=== PATIENT | female | born 1980 | race Caucasian/White ===

== ENCOUNTER 2020-02-24 08:23 | Outpatient (REF) | payer OTHER, SELFPAY ==
[2020-02-25 09:08] LABS: CT PCR NOT DETECTED (Not Detect.); NG PCR NOT DETECTED (Not Detect.)
[2020-02-25 10:31] LABS: BV Int Neg Control Negative (Negative); BV Int Pos Control Positive (Positive)
[2020-02-28 21:02] LABS: HPV 16 RNA NOT DETECTED (NOT DETECTED); HPV mRNA E6/E7 rflx Detected (Not Detected)
== END 2020-02-24 08:24 | disposition home or self-care (01) ==
LOC: HO.LAB 08:23
PROVIDERS: PCP Internal Medicine; Referring Provider Internal Medicine; Visit Provider Obstetrics & Gynecology
DX: Z01.419 Encounter for gynecological examination (general) (routine) without abnormal findings (principal); R10.2 Pelvic and perineal pain; R31.29 Other microscopic hematuria
CPT/HCPCS: 81025; 87086; 87480; 87491; 87510; 87591; 87624; 87625; 87660; 88141; 88142

== ENCOUNTER 2020-03-02 08:23 | Outpatient (REF) | payer OTHER, SELFPAY ==
--- NOTE | 2020-03-02 08:28 | US_ITS ---
EXAMINATION: US PELVIC, COMPLETE CLINICAL INFORMATION: Pelvic and perineal pain COMPARISON: None. TECHNIQUE: Transabdominal and transvaginal imaging was performed. FINDINGS: The uterus is retroflexed of normal size and echogenicity measuring 8.8 x 4.1 x 4.8 cm. A regular homogeneous endometrium is identified measuring 0.41 cm. An intrauterine device is seen in appropriate positioning. Both ovaries are of normal size and echogenicity. The right measures 4.1 x 2.2 x 2.5 cm for a volume of 11.6 mL. The left measures 3.6 x 1.2 x 1.9 cm for a volume of 4.2 mL. There are 2 focal regions within the right ovary, the first measures 2.3 x 1.9 x 1.9 cm and is heterogeneously hypoechoic with peripheral vascularity and slightly lobulated margins suggestive of a corpus luteal cyst. The second measures 1.7 x 1.8 x 1.7 cm with both cystic and solid portion, indeterminate. There is small pelvic free fluid. US/US pelvic complete IMPRESSION: 1. Appropriate positioning of the patient's intrauterine device. 2. There are 2 complex cystic lesions of the right ovary. In this patient's age group, these are likely benign, however ultrasound is nondiagnostic. Recommend follow-up in 6 weeks.
--- NOTE | 2020-03-02 08:28 | US_ITS ---
EXAMINATION: US PELVIC, COMPLETE CLINICAL INFORMATION: Pelvic and perineal pain COMPARISON: None. TECHNIQUE: Transabdominal and transvaginal imaging was performed. FINDINGS: The uterus is retroflexed of normal size and echogenicity measuring 8.8 x 4.1 x 4.8 cm. A regular homogeneous endometrium is identified measuring 0.41 cm. An intrauterine device is seen in appropriate positioning. Both ovaries are of normal size and echogenicity. The right measures 4.1 x 2.2 x 2.5 cm for a volume of 11.6 mL. The left measures 3.6 x 1.2 x 1.9 cm for a volume of 4.2 mL. There are 2 focal regions within the right ovary, the first measures 2.3 x 1.9 x 1.9 cm and is heterogeneously hypoechoic with peripheral vascularity and slightly lobulated margins suggestive of a corpus luteal cyst. The second measures 1.7 x 1.8 x 1.7 cm with both cystic and solid portion, indeterminate. There is small pelvic free fluid. US/US transvaginal IMPRESSION: 1. Appropriate positioning of the patient's intrauterine device. 2. There are 2 complex cystic lesions of the right ovary. In this patient's age group, these are likely benign, however ultrasound is nondiagnostic. Recommend follow-up in 6 weeks.
== END 2020-03-02 08:24 | disposition home or self-care (01) ==
LOC: HO.HMGCX 08:23
PROVIDERS: Visit Provider Obstetrics & Gynecology
DX: R10.2 Pelvic and perineal pain (principal)
CPT/HCPCS: 76830; 76856

== ENCOUNTER → 2020-03-16 14:14 | Outpatient (BNVA) | payer OTHER, SELFPAY | PROVIDERS: Visit Provider Obstetrics & Gynecology | DX: Z76.89 Persons encountering health services in other specified circumstances (principal) ==

== ENCOUNTER 2020-03-30 10:10 | Outpatient (REF) | payer OTHER, SELFPAY | END 2020-03-30 10:11 | disposition home or self-care (01) | LOC: HO.LAB 10:10 | PROVIDERS: Visit Provider Obstetrics & Gynecology | DX: R87.612 Low grade squamous intraepithelial lesion on cytologic smear of cervix (LGSIL) (principal) | CPT/HCPCS: 57454; 81025; 88305; 88342; 88360 ==

== ENCOUNTER → 2020-04-10 14:01 | Outpatient (BNVA) | payer OTHER, SELFPAY | PROVIDERS: Visit Provider Obstetrics & Gynecology | DX: Z76.89 Persons encountering health services in other specified circumstances (principal) ==

== ENCOUNTER → 2020-04-13 10:11 | Outpatient (BNVA) | payer OTHER, SELFPAY | PROVIDERS: Visit Provider Obstetrics & Gynecology | DX: Z76.89 Persons encountering health services in other specified circumstances (principal) ==

== ENCOUNTER 2020-04-14 08:36 | Outpatient (REF) | payer OTHER, SELFPAY ==
[2020-04-15 08:00] LABS: BV Int Neg Control Negative (Negative); BV Int Pos Control Positive (Positive)
== END 2020-04-14 08:37 | disposition home or self-care (01) ==
LOC: HO.LAB 08:36
PROVIDERS: Visit Provider Advanced Practice Midwife
DX: R10.2 Pelvic and perineal pain (principal); R31.29 Other microscopic hematuria; Z79.3 Long term (current) use of hormonal contraceptives
CPT/HCPCS: 81003; 87086; 87480; 87510; 87660; 99212

== ENCOUNTER → 2020-04-16 08:01 | Outpatient (BNVA) | payer OTHER, SELFPAY | PROVIDERS: PCP Internal Medicine; Visit Provider Obstetrics & Gynecology | DX: R10.2 Pelvic and perineal pain (principal) | CPT/HCPCS: 81025; 99212 ==

== ENCOUNTER 2020-04-16 08:53 | Outpatient (REF) | payer OTHER, SELFPAY ==
--- NOTE | 2020-04-16 09:01 | US_ITS ---
EXAMINATION: US PELVIS COMPLETE CLINICAL INFORMATION: Pelvic and perineal pain COMPARISON: None TECHNIQUE: Transabdominal and transvaginal ultrasound of the pelvis is performed. FINDINGS: The uterus is retroverted and retroflexed. It measures 6.9 cm in length, 3.9 cm in AP and 7.3 cm in transverse dimension. There is an IUD well located within the endometrial canal. The endometrial thickness is 0.2 cm. The right ovary measures 3.1 x 1.9 x 1.8 cm and volume 5.5 mL. Previously it it measured 4.1 x 2.2 x 2.5 cm and volume 11.6 mL. The ovaries are unremarkable. The left ovary measures 2.8 x 2.4 x 1.9 cm and volume 6.7 mL. Previously left ovary measured 3.6 x 1.2 x 1.9 cm and volume 4.2 cm. It appears unremarkable. There is no free fluid in the cul-de-sac. US/US pelvic complete IMPRESSION: 1. Well located IUD within the endometrial canal. The uterus is retroverted and retroflexed but otherwise unremarkable. 2. Ovaries are unremarkable.
--- NOTE | 2020-04-16 09:01 | US_ITS ---
EXAMINATION: US PELVIS COMPLETE CLINICAL INFORMATION: Pelvic and perineal pain COMPARISON: None TECHNIQUE: Transabdominal and transvaginal ultrasound of the pelvis is performed. FINDINGS: The uterus is retroverted and retroflexed. It measures 6.9 cm in length, 3.9 cm in AP and 7.3 cm in transverse dimension. There is an IUD well located within the endometrial canal. The endometrial thickness is 0.2 cm. The right ovary measures 3.1 x 1.9 x 1.8 cm and volume 5.5 mL. Previously it it measured 4.1 x 2.2 x 2.5 cm and volume 11.6 mL. The ovaries are unremarkable. The left ovary measures 2.8 x 2.4 x 1.9 cm and volume 6.7 mL. Previously left ovary measured 3.6 x 1.2 x 1.9 cm and volume 4.2 cm. It appears unremarkable. There is no free fluid in the cul-de-sac. US/US transvaginal IMPRESSION: 1. Well located IUD within the endometrial canal. The uterus is retroverted and retroflexed but otherwise unremarkable. 2. Ovaries are unremarkable.
== END 2020-04-16 08:54 | disposition home or self-care (01) ==
LOC: HO.US 08:53
PROVIDERS: Visit Provider Obstetrics & Gynecology
DX: R10.2 Pelvic and perineal pain (principal)
CPT/HCPCS: 76830; 76856

== ENCOUNTER → 2020-04-27 13:56 | Outpatient (BNVA) | payer OTHER, SELFPAY | PROVIDERS: PCP Internal Medicine; Visit Provider Obstetrics & Gynecology | DX: Z01.818 Encounter for other preprocedural examination (principal); D06.9 Carcinoma in situ of cervix, unspecified; Z97.5 Presence of (intrauterine) contraceptive device | CPT/HCPCS: 99212 ==

== ENCOUNTER 2020-05-01 07:32 | Outpatient (REF) | payer OTHER, SELFPAY ==
[2020-05-01 07:38] VITALS: BP 129/78; PULSE 88; RESP 19; TEMP 36.5; O2SAT 100; BMI 27.1
--- NOTE | 2020-05-01 08:05 | MHC.SHP ---
Pre-Procedural Eval Section A The patient is an INPATIENT: No Changes since office visit: No Cold of Flu in the past 2 weeks, No New Medical Problems, No Changes in Medication and No Patient answered all questions The History & Physical has been completed within 30 days and I have reviewed it.: Yes Section B Chief Complaint: cin3 Allergies: Allergies Allergy/AdvReac Type Severity Reaction Status Date / Time No Known Allergies Allergy Verified 05/01/20 07:48 Plan Diagnosis/Plan: Unchanged I have reviewed the history and physical and performed a pertinent physical examination on my patient. No changes have occurred unless specified.
--- NOTE | 2020-05-01 08:42 | PM.OP ---
Brief Operative Note Date of Service: 04/03/20 Pre-op diagnosis: JUAN LUIS 2-3 , requesting IUD removal Post-op diagnosis: same Procedure: LEEP CONE, IUD removal Surgeon: Pierce Rossi MD Anesthesia: local and other (Paracervical block) Estimated blood loss (mL): 0 Pathology: other (cervical cone) Condition: stable Disposition: other (Home)
--- NOTE | 2020-05-01 08:43 | W.PM.OPN ---
Operative Note Operative Note Date of Service: 04/03/20 Narrative: Preop diagnosis: JUAN LUIS 2-3 negative ECC, requesting IUD removal Operation: LEEP Cone with post cone ECC Post op diagnosis: same Anesthesia: paracervical block Complications: none Pathology: Cervical CONE QBL: minimal Procedure: The patient was put in the dorsal lithotomy position, was prepped and draped in the usual sterile fashion. A sterile speculum was inserted inside the patient vagina. Using Lugol solution the cervix with Dyed with Lugol solution to identifiy the abnormal demarcating line. 10 cc of Marcaine0.5% with epinephrine were given at 2,4 , 8, and 10 o'clock. Using a Tanisha Clamp the IUD was pulled out with no complicationsand Then using a medium-size loop wire, the cervical cone was excised. Hemostasis was assured using cautery and Monsel solution. All instruments were taken out of the patient's vaginal cavity. the patient tolerated the procedure well and was discharged home with the following instructions: call if temperature is above 100.4, vaginal bleeding, abdominal pain or nausea or vomiting. Follow-up in the office in 2 weeks for postop visit
== END 2020-05-01 07:33 | disposition home or self-care (01) ==
LOC: HO.MS 07:32
PROVIDERS: Visit Provider Obstetrics & Gynecology
PROC: 0UBC7ZZ Excision of Cervix, Via Natural or Artificial Opening (ICD-10-PCS; CPT 57522; principal; 2020-05-01 08:20)
DX: D06.9 Carcinoma in situ of cervix, unspecified (principal); Z30.432 Encounter for removal of intrauterine contraceptive device; F32.9 Major depressive disorder, single episode, unspecified
CPT/HCPCS: 57522; 58301; 88307

== ENCOUNTER → 2020-05-04 16:03 | Outpatient (BNVA) | payer OTHER, SELFPAY | PROVIDERS: Visit Provider Obstetrics & Gynecology | DX: N83.299 Other ovarian cyst, unspecified side (principal) | CPT/HCPCS: 99212 ==

== ENCOUNTER 2020-05-12 15:37 | Outpatient (REF) | payer OTHER, SELFPAY ==
[2020-05-12 18:01] LABS: MANUAL DIFF FLAG NO
[2020-05-12 18:17] LABS: Basophils Percent Auto 0.3 % (0-2); Eosinophils Percent Auto 0.5 % (0-4); Hemoglobin 13.5 g/dl (12.0-16.0); Imm Gran Abs Auto 0.05 X10*3/uL (0.00-0.03); Imm Gran Pct Auto 0.6 % (0.0-0.4); Lymphocytes Percent Auto 25.5 % (20-40); Mean Corpuscular HGB Conc 35.5 g/dl (31.0-35.0); Mean Corpuscular Volume 87.2 fL (80-98); Mean Platelet Volume 9.8 fL (9.4-12.3); Monocytes Absolute Auto 0.3 X10*3/uL (0.1-1.2); Monocytes Percent Auto 4.3 % (2-11); Neutrophils Absolute Auto 5.4 X10*3/uL (2.0-8.3); Neutrophils Percent Auto 68.8 % (45-73); Platelet Count 323 X10*3/uL (160-400); Red Blood Count 4.36 X10*6/uL (4.20-5.50); Red Cell Distribution Width 11.2 % (11.0-16.0); White Blood Count 7.8 X10*3/uL (4.8-10.8)
[2020-05-12 18:27] LABS: Alanine Aminotransferase 15 U/L (0-31); Albumin Level 4.9 g/dL (3.5-5.0); Alkaline Phosphatase 60 U/L (39-117); Anion Gap 13 (12-20); Aspartate Amino Transferase 20 U/L (5-31); Bilirubin Total 0.4 mg/dL (0.0-1.0); Blood Urea Nitrogen 14 mg/dL (9-16); Calcium 9.5 mg/dL (8.4-10.2); Carbon Dioxide 30 mmol/L (22-29); Chloride 101 mmol/L (96-108); Estimated Glomerular Filt Rate > 60; Glucose Random 87 mg/dL (60-115); Sodium 140 mmol/L (135-145); Total Protein 7.9 g/dL (6.5-8.0)
[2020-05-12 18:33] LABS: HCG Quantitative < 2 mIU/mL
[2020-05-13 18:37] LABS: CA-125 8 U/mL (<35)
== END 2020-05-12 15:38 | disposition home or self-care (01) ==
LOC: HO.LAB 15:37
PROVIDERS: PCP Internal Medicine; Visit Provider Obstetrics & Gynecology
DX: N83.299 Other ovarian cyst, unspecified side (principal); R10.2 Pelvic and perineal pain; N92.0 Excessive and frequent menstruation with regular cycle
CPT/HCPCS: 36415; 80053; 84702; 85025; 86304

== ENCOUNTER → 2020-05-13 09:39 | Outpatient (BNVA) | payer OTHER, SELFPAY | PROVIDERS: PCP Internal Medicine; Visit Provider Obstetrics & Gynecology | DX: N93.9 Abnormal uterine and vaginal bleeding, unspecified (principal) | CPT/HCPCS: 99212 ==

== ENCOUNTER 2020-05-15 23:25 | Emergency (ER) | payer OTHER, SELFPAY ==
[2020-05-15 23:34] VITALS: BP 120/83; PULSE 120; RESP 12; TEMP 37.1; O2SAT 100; BMI 26.9
--- NOTE | 2020-05-15 23:43 | ED_ITS ---
HPI - General Adult General Chief complaint: Vaginal Bleeding Stated complaint: Vaginal Bleeding Time Seen by Provider: 05/15/20 23:34 Source: patient Mode of arrival: ambulatory Limitations: no limitations History of Present Illness HPI narrative: Vaginal bleed for few weeks intermittently, patient had LEEP procedure done few weeks ago, sent to the in-patient been having intermittent bleeding, patient was evaluated by Dr. Flo Nuno at the office for similar presentation, patient was treated with Augmentin for presumed cervical infection. Patient stated that in the last hour she changed 3 soaked pads, feeling slightly dizzy but no lightheadedness, no LOC. Patient declined sexual activity. Related Data Home Medications Medication Instructions Recorded Confirmed levonorgestrel 20 mcg/24 hours (6 INTRAUTERINE 02/24/20 05/12/20 yrs) 52 mg intrauterine device Previous Rx's Medication Instructions Recorded levofloxacin 500 mg tablet 500 mg PO DAILY 7 Days #7 tab 04/10/20 metronidazole 500 mg tablet 500 mg PO BID 7 Days #14 tab 04/10/20 amoxicillin 875 mg-potassium 1 tab PO BID 7 Days #14 tab 05/13/20 clavulanate 125 mg tablet norgestimate-ethinyl estradiol 1 tab PO DAILY #28 tab 05/16/20 [Sprintec (28)] Allergies Allergy/AdvReac Type Severity Reaction Status Date / Time No Known Allergies Allergy Verified 05/12/20 15:38 Review of Systems Review of Systems: All other systems are reviewed and are negative Constitutional: Reports as per HPI and Reports no additional constitutional complaints Eyes: Reports as per HPI and Reports no additional eye complaints Reports system reviewed and no additional complaints, except as documented Cardiovascular: Reports as per HPI and Reports no additional cardiovascular complaints Respiratory: Reports as per HPI and Reports no additional respiratory complaints Gastrointestinal: Reports as per HPI and Reports no additional gastrointestinal complaints Genitourinary: Reports no additional female genitourinary complaints Musculoskeletal: Reports no additional musculoskeletal complaints Skin/Breast: Reports system reviewed and no additional complaints, except as docu Psychiatric: Reports no additional psychiatric complaints Endocrine: Reports no additional endocrine complaints Hematologic/Lymphatic: Reports no additional hematologic/lymphatic complaints Allergic/Immunologic: Reports no additional allergic/immunologic complaints Reports system reviewed and no additional complaints, except as documented and Reports Abnormal speech present PMFSH Past Medical History Medical History Anxiety Depression History of abnormal cervical Pap smear Family History Family History Father Bladder cancer Mother Breast cancer Uterine cancer Diabetes HTN (hypertension) Maternal Grandmother Breast cancer Paternal Uncle Bone cancer Social History Social History Alcohol intake: never Smoking Status: Never smoker Smoked in Last 30 Days: No Advance Directives: No Advance Directives Information Provided: No Sexual orientation: Straight/Heterosexual Gender identity: female Physical Exam Vital Signs: Vital Signs: Last Vital Signs Temp 98.7 F 05/15/20 23:34 Pulse 120 H 05/15/20 23:34 Resp 12 05/15/20 23:34 BP 120/83 05/15/20 23:34 Pulse Ox 100 05/15/20 23:34 Body Mass Index 26.9 Vital signs have been reviewed as normal and appeared to be correct. Blood pressure normal. Heart rate: Tachycardia. Respiration rate normal. Temperature normal. Oxygen saturation normal. Appearance: Alert. Oriented X3. No acute distress. Head: Normal external exam. Normocephalic. Atraumatic. No Irwin signs noted. No raccoon eyes noted Eyes: PERRLA. EOMI. Conjunctiva and sclera normal. Eyelids normal. ENT: EAC normal. TM's Normal. Pharynx normal. Uvula midline. Moist mucous membranes. No trismus noted. No drooling noted. No muffled voice noted. Neck: Normal inspection. Neck supple. FROM. No adenopathy. Thyroid Normal. No meningeal signs. No neck mass noted. CVS: Normal heart rate and rhythm. Heart sound normal. No murmurs noted. Pulses normal throughout. Respiratory: No respiratory distress. Painless inspiration. Breath sounds normal. No wheezes/rales/rhonchi noted. Chest nontender. No accessory muscle usage noted or decreased air movement noted. Abdomen: Soft and nontender. Bowel sounds normal in all 4 quadrants. No distention noted. No organomegaly noted. No visible injury noted. Pelvic exam: Active bleeding from the cervix (unable to visualize the source of the bleed) vault is full of blood and blood clots, gauze packing used Tranexamic acid applied intravaginally slowing the bleed. Overall exam is limited due to the amount of the blood in the vault. Back: No CVA tenderness. Full range of motion noted. Skin: Skin warm and dry. Normal skin color. Normal skin turgor. No rashes/lesi ons/lacerations noted. Extremities: No lower extremity edema. Extremities exhibit normal range of motion. Extremities nontender. Neuro: Oriented X 3. No motor deficit. No sensory deficit. Reflexes normal. Course Course Course Narrative: Active vaginal bleeding with tachycardia, patient also dropped 4 unit of hematocrit from 3 days ago. Bleeding is slowing but still actively bleeding after applying intravaginal packing with tranexamic acid. Dr. Flo Justice (OBGYN service) was contacted who came to the hospital within 15 minutes examining the patient, Dr. Rossi is applying Monsel solution to the cervix. Two large IVs in the ACs were applied, type and screen was ordered. Medical Decision Making MDM Narrative Medical decision making narrative: Dr. Rossi at the bedside, after cleaning the cervix from blood and blood clots patient had several pelvic exam by Dr. Rossi reportedly bleeding has stopped, recommended to keep the patient in the emergency room for few hours to monitor her hemodynamically, serial CBC. Will start the patient on Sprintec OCP and follow-up with Dr. Flo Nuno as an o utpatient. Patient was signed out to Dr Denton for [facility] on cbc and monitor VS. Lab Data Lab results reviewed: Yes I reviewed the patient's lab results. Result diagrams: 05/16/20 00:01 05/16/20 00:01 Labs: Lab Results 05/16/20 05/16/20 05/16/20 Range/Units 00:01 00:01 00:50 WBC 8.0 (4.8-10.8) X10*3/uL RBC 3.99 L (4.20-5.50) X10*6/uL Hgb 12.1 (12.0-16.0) g/dl Hct 34.6 L (37-47) % MCV 86.7 (80-98) fL MCH 30.3 (27.0-33.0) pg MCHC 35.0 (31.0-35.0) g/dl RDW 11.2 (11.0-16.0) % Plt Count 269 (160-400) X10*3/uL MPV 9.2 L (9.4-12.3) fL Immature Gran % (Auto) 0.3 (0.0-0.4) % Neut % (Auto) 62.2 (45-73) % Lymph % (Auto) 32.6 (20-40) % [place] % (Auto) 4.1 (2-11) % Eos % (Auto) 0.5 (0-4) % Baso % (Auto) 0.3 (0-2) % Lymph # (Auto) 2.6 (1.2-4.9) X10*3/uL [place] # (Auto) 0.3 (0.1-1.2) X10*3/uL Eos # (Auto) 0.0 (0.0-0.4) X10*3/uL Baso # (Auto) 0.0 (0.0-0.2) X10*3/uL Abs Immat Gran (auto) 0.02 (0.00-0.03) X10*3/uL Absolute Neuts (auto) 5.0 (2.0-8.3) X10*3/uL Absolute Nucleated RBC 0.000 (0.0-0.012) X10*3/uL Nucleated RBC % (auto) 0.0 (0.0-0.2) /100WBC Sodium 138 (135-145) mmol/L Potassium 3.6 (3.3-5.1) mmol/l Chloride 103 (96-108) mmol/L Carbon Dioxide 28 (22-29) mmol/L Anion Gap 11 L (12-20) BUN 11 (9-16) mg/dL Creatinine 0.78 (0.5-1.4) mg/dL Estim Creat Clear Calc 91.0 Estimated GFR > 60 Random Glucose 104 (60-115) mg/dL Calcium 8.9 D (8.4-10.2) mg/dL Beta HCG, Quant < 2 mIU/mL Blood Type A Positive Antibody Screen NEGATIVE Discharge Plan Discharge Clinical Impression: Vaginal bleeding, Menometrorrhagia Instructions: Dysfunctional Uterine Bleeding (ED) Prescriptions: New norgestimate-ethinyl estradiol [Sprintec (28)] 0.25-35 mg-mcg tablet 1 tab PO DAILY Qty: 28 RF: 0 No Action Mirena 20 mcg/24 hours (5 yrs) 52 mg intrauterine device intrauterine RF: 0 levofloxacin 500 mg tablet 500 mg PO DAILY 7 Days Qty: 7 RF: 0 metronidazole 500 mg tablet 500 mg PO BID 7 Days Qty: 14 RF: 0 amoxicillin-pot clavulanate [Augmentin] 875-125 mg tablet 1 tab PO BID 7 Days Qty: 14 RF: 0 Referrals: Po,Ben Beckwith MD [Primary Care Provider] - 2 days Pierce Rossi MD [Physician] - 2 days Stand Alone Forms: Work/School Release
[2020-05-16 00:08] LABS: Basophils Percent Auto 0.3 % (0-2); Eosinophils Percent Auto 0.5 % (0-4); Hematocrit 34.6 % (37-47); Hemoglobin 12.1 g/dl (12.0-16.0); Imm Gran Abs Auto 0.02 X10*3/uL (0.00-0.03); Imm Gran Pct Auto 0.3 % (0.0-0.4); Lymphocytes Absolute Auto 2.6 X10*3/uL (1.2-4.9); Lymphocytes Percent Auto 32.6 % (20-40); MANUAL DIFF FLAG NO; Mean Corpuscular Hemoglobin 30.3 pg (27.0-33.0); Mean Corpuscular Volume 86.7 fL (80-98); Mean Platelet Volume 9.2 fL (9.4-12.3); Monocytes Absolute Auto 0.3 X10*3/uL (0.1-1.2); Monocytes Percent Auto 4.1 % (2-11); Neutrophils Percent Auto 62.2 % (45-73); Platelet Count 269 X10*3/uL (160-400); Red Blood Count 3.99 X10*6/uL (4.20-5.50); Red Cell Distribution Width 11.2 % (11.0-16.0)
[2020-05-16 00:37] LABS: Anion Gap 11 (12-20); Blood Urea Nitrogen 11 mg/dL (9-16); Calcium 8.9 mg/dL (8.4-10.2); Carbon Dioxide 28 mmol/L (22-29); Chloride 103 mmol/L (96-108); Estimated Glomerular Filt Rate > 60; Glucose Random 104 mg/dL (60-115); Potassium 3.6 mmol/l (3.3-5.1); Sodium 138 mmol/L (135-145)
[2020-05-16 01:46] LABS: HCG Quantitative < 2 mIU/mL
[2020-05-16] MEDS: Tranexamic Acid 1,000 MG/10 ML VIAL 500 MG INTRANASAL (01:46)
[2020-05-16 01:50] VITALS: BP 104/71; PULSE 109; RESP 18; O2SAT 98
--- NOTE | 2020-05-16 01:58 | PC.NURSE ---
DR. SUTHERLAND AT BEDSIDE WITH THIS RN AND [facility] FOR COPIOUS AMOUNT OF BLOOD CLOTS IN THE VAGINA. REMOVAL AND MONITORING FOR ACTIVE BLEEDING. NO ACTIVE BLEEDING NOTED ONCE CLOTS WERE REMOVED. SKIN IS P,D,W. PATIENT COMPLAINING OF DIZZINESS AND FEELING UNWELL WHEN SITTING UP OR STANDING. PATIENT LAYING FLAT. DR. SUTHERLAND WANTING 1L OF FLUID. PLAN OF CARE IS FOR REDRAW OF BLOOD AT 6AM AND TREAT ACCORDINGLY.
[2020-05-16] MEDS: 0.9 % Sodium Chloride 1,000 ML 999 ML IVCONT (02:05)
--- NOTE | 2020-05-16 02:11 | PM.GYNCN ---
GRAPHIC DESIGN INTERN - CN: HPI Data of Consult Consult date: 05/16/20 Primary Care Provider: Ben Mckeon MD Consult Narrative Narrative: Ese Meade is a 40 year old female presented to the emergency room with heavy vaginal bleeding and passage of blood clots over 4 hours. The patient had LEEP cone 2 weeks ago with IUD removal. Patient had multiple Mirena IUD's for 17 years consecutively. The patient was seen in the office 3 days ago hematocrit was done was 38 pelvic exam showed mild oozing from cervix monsel of solution was applied bleeding stopped and the patient was started on Augmentin 875 mg p.o. b.i.d.. 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 Review of Systems ROS Unobtainable: All systems reviewed & are unremarkable except as noted in HPI and below Cardiovascular: Denies Palpatations, Loss of consciousness and Chest pain Respiratory: Denies Cough, Wheezing and Shortness of breath Musculoskeletal: Denies Low back pain Gastrointestinal: Denies Heartburn, Constipation, Diarrhea, Nausea and Vomiting Genitourinary: Denies Pain with urination, Burning with urination and Urinary frequency Neurological: Denies Migranes Psychological: Denies Depression OB PMFSH Past Medical History Medical History Anxiety Depression History of abnormal cervical Pap smear Family History Family History Father Bladder cancer Mother Breast cancer Uterine cancer Diabetes HTN (hypertension) Maternal Grandmother Breast cancer Paternal Uncle Bone cancer Social History Social History Alcohol intake: never Smoking Status: Never smoker Smoked in Last 30 Days: No Advance Directives: No Advance Directives Information Provided: No Sexual orientation: Straight/Heterosexual Gender identity: female Meds Allergies Allergy/AdvReac Type Severity Reaction Status Date / Time No Known Allergies Allergy Verified 05/12/20 15:38 Home Medications Medication Instructions Recorded Confirmed Type levonorgestrel 20 mcg/24 hours (6 INTRAUTERINE 02/24/20 05/12/20 History yrs) 52 mg intrauterine device GRAPHIC DESIGN INTERN Physical Exam Vitals Vital signs: Temp Pulse Resp BP Pulse Ox 98.7 F 109 H 18 104/71 98 05/15/20 23:34 05/16/20 01:50 05/16/20 01:50 05/16/20 01:50 05/16/20 01:50 Body Mass Index 26.9 Constitutional General Appearance: Healthy appearing, Well-nourished and Well-developed Psychiatric Mood and Affect: active and alert, normal mood and normal affect Skin Appearance: No rashes and No lesions Lungs Respiratory Effort: No intercostal retractions Auscultation: Clear to auscultation Cardiovascular Auscultation: RRR Abdomen Auscultation/Inspection/Palpation: Normal bowel sounds, Soft, Non-distended and No tenderness Female Genitalia (Pelvic) Bladder/Urethra: Normal meatus Vulva: No lesions Vagina: Nontender (Large clots per vagina evacuated) Cervix: Grossly normal (No evidence of bleeding from the LEEP cone, healing well) Adnexa/Parametria: Adnexal Tenderness: None Additional Comments: Pelvic exam repeated after 15 minutes revealed no evidence of bleeding per vagina nor from the cervix GRAPHIC DESIGN INTERN - Results Labs CBC & Chem 7: 05/16/20 00:01 05/16/20 00:01 Labs: Short CBC 05/16/20 Range/Units 00:01 WBC 8.0 (4.8-10.8) X10*3/uL Hgb 12.1 (12.0-16.0) g/dl Hct 34.6 L (37-47) % Plt Count 269 (160-400) X10*3/uL BMP 05/16/20 00:01 Sodium 138 Potassium 3.6 Chloride 103 Carbon Dioxide 28 BUN 11 Creatinine 0.78 Calcium 8.9 D Antibody Screen Antibody Screen NEGATIVE 05/16/20 00:50 Assessment and Plan (1) Menometrorrhagia: Problem details: with anemia Status: Acute Explained to the patient the findings on physical exam large amount of blood clots but no active bleeding from the site of the LEEP cone therefore the diagnosis is menometrorrhagia secondary to IUD removal after 17 years of progesterone IUD. Since H&H dropped over the last the 3 days and the patient is symptomsatic , will continue IV hydration, observe patient for 6 hours and repeat H and H and determine if the patient needs blood transfusion or not. Will start the patient on Sprintec , discussed with the patient the pros and cons of control pills mechanism of action and risks profile including but not limited to risk of DVT and PE M& I breast cancer, the patient verbalized understanding and agreed with the plan. Instructions given to the patient to continue taking Sprintec once a day for 28 days & sulfate 325 mg p.o. b.i.d., to call or come back to the emergency room in case of fever, heavy vaginal bleeding, nausea, vomiting, dizziness or abdominal pain. All questions answered the patient verbalized understanding. Discussed the plan with Dr. Kirkpatrick in the emergency room
[2020-05-16 03:03] VITALS: BP 111/71; PULSE 88; RESP 16; O2SAT 97
[2020-05-16 05:02] VITALS: BP 104/65; PULSE 82; RESP 18; TEMP 36.8; O2SAT 100
[2020-05-16 05:18] LABS: Glucose Urine UA NEG (NEG); Leukocyte Esterase Urine NEG (NEG); Nitrite Urine NEG (NEG); PH 7.5 (5.0-8.0); Urine Blood 1+ (NEG); Urine Ketones NEG (NEG); Urine Protein NEG (NEG-TRACE)
[2020-05-16 05:19] LABS: Appearance Urine CLEAR; Color Urine YELLOW
[2020-05-16 05:29] LABS: Mucus Urine 1+ /LPF; RBC Urine 0-2 /HPF (0); Squamous Epithelial Cell Urine 1+ /LPF; WBC Urine 0-2 /HPF (0-4)
--- NOTE | 2020-05-16 05:35 | PC.NURSE ---
PATIENT HAVING NO ACTIVE BLEEDING AFTER PELVIC EXAM BY DR. SUTHERLAND. HAS NOT BLED ON ANY PADS FOR ABOUT 4 HOURS. DENIES PAIN OR DISCOMFORT. REPORTS NO DIZZINESS OR ANXIETY AT THIS TIME. AWAITING MEDICATION FROM PHARMACY WHEN THEY OPEN AT 6AM
[2020-05-16 05:46] LABS: MANUAL DIFF FLAG NO
[2020-05-16 05:49] LABS: Basophils Percent Auto 0.1 % (0-2); Eosinophils Percent Auto 0.1 % (0-4); Hematocrit 31.9 % (37-47); Hemoglobin 11.1 g/dl (12.0-16.0); Imm Gran Abs Auto 0.06 X10*3/uL (0.00-0.03); Imm Gran Pct Auto 0.4 % (0.0-0.4); Lymphocytes Absolute Auto 1.9 X10*3/uL (1.2-4.9); Lymphocytes Percent Auto 12.7 % (20-40); Mean Corpuscular HGB Conc 34.8 g/dl (31.0-35.0); Mean Corpuscular Hemoglobin 30.4 pg (27.0-33.0); Mean Corpuscular Volume 87.4 fL (80-98); Mean Platelet Volume 9.8 fL (9.4-12.3); Monocytes Absolute Auto 0.5 X10*3/uL (0.1-1.2); Monocytes Percent Auto 3.1 % (2-11); Neutrophils Absolute Auto 12.3 X10*3/uL (2.0-8.3); Neutrophils Percent Auto 83.6 % (45-73); Platelet Count 288 X10*3/uL (160-400); Red Blood Count 3.65 X10*6/uL (4.20-5.50); Red Cell Distribution Width 11.2 % (11.0-16.0); White Blood Count 14.8 X10*3/uL (4.8-10.8)
[2020-05-16 06:00] VITALS: BP 112/64; PULSE 84; RESP 16; O2SAT 99
== END 2020-05-16 06:55 | disposition home or self-care (01) ==
PROVIDERS: Emergency Provider Emergency Medicine; PCP Internal Medicine
DX: N92.1 Excessive and frequent menstruation with irregular cycle (principal); R00.0 Tachycardia, unspecified
CPT/HCPCS: 36415; 80048; 81001; 84702; 85025; 86850; 86900; 86901; 96360; 99283; 99284

== ENCOUNTER → 2020-05-18 11:30 | Outpatient (BNVA) | payer OTHER, SELFPAY | PROVIDERS: PCP Internal Medicine; Visit Provider Obstetrics & Gynecology | DX: N92.0 Excessive and frequent menstruation with regular cycle (principal) | CPT/HCPCS: 99212 ==

== ENCOUNTER 2020-05-19 15:35 | Outpatient (REF) | payer OTHER, SELFPAY ==
[2020-05-19 18:20] LABS: Hematocrit 33.1 % (37-47); Hemoglobin 11.3 g/dl (12.0-16.0); Mean Corpuscular HGB Conc 34.1 g/dl (31.0-35.0); Mean Corpuscular Volume 87.8 fL (80-98); Mean Platelet Volume 9.8 fL (9.4-12.3); Platelet Count 332 X10*3/uL (160-400); Red Blood Count 3.77 X10*6/uL (4.20-5.50); Red Cell Distribution Width 11.4 % (11.0-16.0)
== END 2020-05-19 15:36 | disposition home or self-care (01) ==
LOC: HO.LAB 15:35
PROVIDERS: PCP Internal Medicine; Visit Provider Obstetrics & Gynecology
DX: N93.9 Abnormal uterine and vaginal bleeding, unspecified (principal); N76.0 Acute vaginitis; B96.89 Other specified bacterial agents as the cause of diseases classified elsewhere
CPT/HCPCS: 36415; 85027

== ENCOUNTER 2020-06-03 08:00 | Outpatient (REF) | payer OTHER, SELFPAY ==
[2020-06-04 09:05] LABS: BV Int Neg Control Negative (Negative); BV Int Pos Control Positive (Positive)
[2020-06-04 12:46] LABS: C. trachomatis RNA TMA NOT DETECTED (NOT DETECTED); N. gonorrhoeae RNA TMA NOT DETECTED (NOT DETECTED)
== END 2020-06-03 08:01 | disposition home or self-care (01) ==
LOC: HO.LAB 08:00
PROVIDERS: PCP Internal Medicine; Visit Provider Obstetrics & Gynecology
DX: N89.8 Other specified noninflammatory disorders of vagina (principal); F41.8 Other specified anxiety disorders; Z79.899 Other long term (current) drug therapy; Z97.5 Presence of (intrauterine) contraceptive device
CPT/HCPCS: 36415; 87480; 87491; 87510; 87591; 87660; 99212

== ENCOUNTER 2020-06-16 | Outpatient (REF) | payer OTHER, SELFPAY | END 2020-06-16 00:01 | disposition home or self-care (01) | LOC: HO.LAB | PROVIDERS: Visit Provider Hospitalist | DX: R30.0 Dysuria (principal) | CPT/HCPCS: 87086 ==

== ENCOUNTER 2020-06-18 11:21 | Outpatient (REF) | payer OTHER, SELFPAY ==
[2020-06-18 11:51] LABS: Hematocrit 37.3 % (37-47); Hemoglobin 12.8 g/dl (12.0-16.0); Mean Corpuscular HGB Conc 34.3 g/dl (31.0-35.0); Mean Corpuscular Hemoglobin 30.2 pg (27.0-33.0); Mean Platelet Volume 9.5 fL (9.4-12.3); Platelet Count 251 X10*3/uL (160-400); Red Blood Count 4.24 X10*6/uL (4.20-5.50); Red Cell Distribution Width 11.8 % (11.0-16.0); White Blood Count 7.3 X10*3/uL (4.8-10.8)
[2020-06-18 11:52] LABS: Retic HGB Equivalent 35.1 pg (30.0-35.0); Reticulocyte Percent 1.4 % (0.5-1.8)
[2020-06-18 12:53] LABS: Alanine Aminotransferase 13 U/L (0-31); Albumin Level 4.3 g/dL (3.5-5.0); Alkaline Phosphatase 44 U/L (39-117); Anion Gap 10 (12-20); Aspartate Amino Transferase 18 U/L (5-31); Bilirubin Total 0.6 mg/dL (0.0-1.0); Blood Urea Nitrogen 13 mg/dL (9-16); Calcium 8.9 mg/dL (8.4-10.2); Carbon Dioxide 27 mmol/L (22-29); Chloride 107 mmol/L (96-108); Estimated Glomerular Filt Rate > 60; Glucose Random 85 mg/dL (60-115); Iron 119 mcg/dL (30-160); Percent Iron Saturation 37 % (15-50); Potassium 4.4 mmol/L (3.3-5.1); Sodium 140 mmol/L (135-145); Total Iron Binding Capacity 319 mcg/dL (228-428); Total Protein 7.1 g/dL (6.5-8.0); Unsaturated Iron Binding 200 ug/dL
[2020-06-18 13:14] LABS: Ferritin 198 ng/mL (10-122); Thyroid Stimulating Hormone 1.08 uIU/mL (0.32-4.0)
[2020-06-18 18:26] LABS: Folate 16.1 ng/mL (> or = 4.0); Vitamin B12 518 pg/mL (200-900)
[2020-06-19 14:02] LABS: C. trachomatis RNA TMA NOT DETECTED (NOT DETECTED); N. gonorrhoeae RNA TMA NOT DETECTED (NOT DETECTED)
== END 2020-06-18 11:22 | disposition home or self-care (01) ==
LOC: HO.LAB 11:21
PROVIDERS: Obstetrics & Gynecology; PCP Internal Medicine; Visit Provider Internal Medicine
DX: D64.9 Anemia, unspecified (principal); N89.8 Other specified noninflammatory disorders of vagina
CPT/HCPCS: 36415; 80053; 82607; 82728; 82746; 83540; 84443; 85027; 85045; 87491; 87591

== ENCOUNTER 2020-08-07 10:04 | Outpatient (REF) | payer OTHER, SELFPAY ==
--- NOTE | ~2020-08-07 | XR_ITS ---
EXAMINATION: XR CHEST CLINICAL INFORMATION: Covid infection COMPARISON: None TECHNIQUE: 2 views of the chest were obtained. FINDINGS: The cardiac and mediastinal contours are normal. The lungs are clear. There is no pleural effusion or pneumothorax. There is curvature of the thoracic spine to the right. Bony structures are unremarkable. XR/XR chest 2V IMPRESSION: Unremarkable examination.
== END 2020-08-07 10:05 | disposition home or self-care (01) ==
LOC: HO.XRAY 10:04
PROVIDERS: PCP Internal Medicine; Visit Provider Internal Medicine
DX: U07.1 COVID-19 (principal)
CPT/HCPCS: 71046

== ENCOUNTER 2020-08-21 08:42 | Outpatient (REF) | payer OTHER, SELFPAY ==
[2020-08-22 03:29] LABS: CT PCR NOT DETECTED (Not Detect.); NG PCR NOT DETECTED (Not Detect.)
[2020-08-22 12:32] LABS: BV Int Neg Control Negative (Negative); BV Int Pos Control Positive (Positive)
== END 2020-08-21 08:43 | disposition home or self-care (01) ==
LOC: HO.LAB 08:42
PROVIDERS: PCP Internal Medicine; Visit Provider Advanced Practice Midwife
DX: N89.8 Other specified noninflammatory disorders of vagina (principal); K59.00 Constipation, unspecified; Z20.2 Contact with and (suspected) exposure to infections with a predominantly sexual mode of transmission; Z79.899 Other long term (current) drug therapy
CPT/HCPCS: 87480; 87491; 87510; 87591; 87660; 99212

== ENCOUNTER → 2020-08-24 13:18 | Outpatient (BNVA) | payer OTHER, SELFPAY | PROVIDERS: PCP Internal Medicine; Visit Provider Obstetrics & Gynecology ==

== ENCOUNTER 2020-11-02 10:00 | Outpatient (REF) | payer OTHER, SELFPAY | END 2020-11-02 10:01 | disposition home or self-care (01) | LOC: HO.LAB 10:00 | PROVIDERS: PCP Internal Medicine; Visit Provider Obstetrics & Gynecology | DX: D06.9 Carcinoma in situ of cervix, unspecified (principal); Z30.09 Encounter for other general counseling and advice on contraception | CPT/HCPCS: 57454; 88305; 99212 ==

== ENCOUNTER → 2020-11-16 14:54 | Outpatient (BNVA) | payer OTHER, SELFPAY | PROVIDERS: PCP Internal Medicine; Visit Provider Obstetrics & Gynecology ==

== ENCOUNTER 2020-11-27 12:34 | Outpatient (REF) | payer OTHER, SELFPAY ==
[2020-11-27 13:07] LABS: Hematocrit 38.3 % (37-47); Hemoglobin 13.4 g/dl (12.0-16.0); Mean Corpuscular Hemoglobin 30.1 pg (27.0-33.0); Mean Corpuscular Volume 86.1 fL (80-98); Mean Platelet Volume 9.6 fL (9.4-12.3); Platelet Count 279 X10*3/uL (160-400); Red Blood Count 4.45 X10*6/uL (4.20-5.50); Red Cell Distribution Width 11.6 % (11.0-16.0); White Blood Count 6.6 X10*3/uL (4.8-10.8)
[2020-11-27 13:49] LABS: Syphilis Screen Nonreactive (Nonreactive)
[2020-11-30 03:44] LABS: HBsAGNum1 0.15 S/CO (0.00-0.99); HIV AB/AG Nonreactive (Nonreactive); HIV Num 1 0.05 S/CO (0.00-0.99); Hepatitis B Surface Antigen Negative (Negative); ~HepC Num1 0.09 S/CO (0.00-0.79); ~Hepatitis C Antibody Nonreactive (Nonreactive)
== END 2020-11-27 12:35 | disposition home or self-care (01) ==
LOC: HO.LAB 12:34
PROVIDERS: PCP Internal Medicine; Visit Provider Obstetrics & Gynecology
DX: Z01.84 Encounter for antibody response examination (principal); Z11.4 Encounter for screening for human immunodeficiency virus [HIV]; Z11.59 Encounter for screening for other viral diseases; Z11.3 Encounter for screening for infections with a predominantly sexual mode of transmission; N92.0 Excessive and frequent menstruation with regular cycle
CPT/HCPCS: 36415; 85027; 86780; 86803; 87340; 87389

== ENCOUNTER → 2020-12-16 13:37 | Outpatient (REF) | payer OTHER, SELFPAY ==
--- NOTE | 2020-12-16 13:42 | ECG_ITS ---
Test Reason : R00.0 Blood Pressure : / mmHG Vent. Rate : 086 BPM Atrial Rate : 086 BPM P-R Int : 124 ms QRS Dur : 076 ms QT Int : 368 ms P-R-T Axes : 071 067 036 degrees QTc Int : 440 ms Normal sinus rhythm with sinus arrhythmia Possible Left atrial enlargement Borderline ECG No previous ECGs available Referred By: Ben Mckeon Electronically Signed By:MARCIAL GREEN
== END ==
LOC: HO.CARD 13:37
PROVIDERS: PCP Internal Medicine; Visit Provider Internal Medicine
DX: R00.2 Palpitations (principal)
CPT/HCPCS: 93005

== ENCOUNTER → 2020-12-23 13:59 | Outpatient (REF) | payer OTHER, SELFPAY ==
--- NOTE | 2020-12-23 14:04 | ECG_ITS ---
Hook-up date: 2020-12-23 14:09:00 Duration: 24:34:00 Test Indications: PALPITATIONS Medications: 347456 QRS complexes * Ventricular ectopics which represent % of total QRS comp. 7 Supraventricular ectopics which represent <1 % of total QRS comp. * Paced QRS complexs which represent % of total QRS comp. VENTRICULAR ECTOPY * Isolated * Bigeminal Cycles * Couplets * Runs * Beats in Runs * Beats LONGEST at * BPM at :: -- * Beats FASTEST at * BPM at :: -- SUPRAVENTRICULAR ECTOPY 7 Isolated 0 Couplets 0 Runs 0 Beats in Runs * Beats LONGEST at * BPM at :: -- * Beats FASTEST at * BPM at :: -- HEART RATES 52 MIN at 06:33:53 2020-12-24 87 AVG 143 MAX at 19:51:11 2020-12-23 LONGEST RR 1.2560 secs at 08:04:36 2020-12-24 S-T LEVELS Channel 1 - 128 mm at 14:09:00 2020-12-23 - 128 mm at 14:09:00 2020-12-23 Channel 2 - 128 mm at 14:09:00 2020-12-23 - 128 mm at 14:09:00 2020-12-23 Channel 3 - 128 mm at 03:32:81 -- - 128 mm at 03:32:81 Basic rhythm Normal sinus rhythm No long pause or profound bradycardia Rare Premature atrial complexes Patient reported symptom of CP correlated with NSR Referred By: Ben Mckeon Overread By: LUCINDA FLOREZ MD
== END ==
LOC: HO.CARD 13:59
PROVIDERS: PCP Internal Medicine; Visit Provider Internal Medicine
DX: R00.2 Palpitations (principal)
CPT/HCPCS: 93225; 93226

== ENCOUNTER → 2020-12-25 13:33 | Outpatient (BNVA) | payer OTHER, SELFPAY | PROVIDERS: PCP Internal Medicine; Visit Provider Hospitalist | DX: B94.8 Sequelae of other specified infectious and parasitic diseases (principal); R06.02 Shortness of breath; R00.2 Palpitations; R07.89 Other chest pain; F41.8 Other specified anxiety disorders; Z88.8 Allergy status to other drugs, medicaments and biological substances | CPT/HCPCS: 99202 ==

== ENCOUNTER 2021-03-08 10:45 | Outpatient (REF) | payer OTHER, SELFPAY ==
[2021-03-08 15:42] LABS: CT PCR NOT DETECTED (Not Detect.); NG PCR NOT DETECTED (Not Detect.)
[2021-03-09 09:15] LABS: BV Int Neg Control Negative (Negative); BV Int Pos Control Positive (Positive)
== END 2021-03-08 10:46 | disposition home or self-care (01) ==
LOC: HO.LAB 10:45
PROVIDERS: Visit Provider Obstetrics & Gynecology
DX: Z11.3 Encounter for screening for infections with a predominantly sexual mode of transmission (principal); R10.2 Pelvic and perineal pain; R31.29 Other microscopic hematuria
CPT/HCPCS: 87086; 87480; 87491; 87510; 87591; 87660; 99212

== ENCOUNTER 2021-03-26 12:41 | Outpatient (REF) | payer OTHER, SELFPAY ==
--- NOTE | ~2021-03-26 | US_ITS ---
EXAMINATION: US PELVIC AND TRANSVAGINAL CLINICAL INFORMATION: Pelvic and perineal pain. COMPARISON: 04/16/2020 TECHNIQUE: Ultrasound of the pelvis was performed using both transabdominal and transvaginal transducers along with Doppler. Transvaginal imaging is performed due to inadequate visualization transabdominally. FINDINGS: UTERUS: The uterus is anteverted and measures 6.8 x 4.2 x 5.1 cm. Two uterine fibroids are present near the fundus measuring 1.0 x 0.9 x 0.9 cm and 1.3 x 1.3 x 1.0 cm. At the time of the prior study, the fibroids were not appreciated. The double wall endometrial thickness is 0.2 mm. A tiny 1.3 mm cyst is present in the endometrial cavity. The uterus is smooth in contour and has normal myometrial echogenicity. ADNEXA: Both ovaries are visualized. There is normal color-flow to the adnexa. There is no ovarian torsion. There is no pelvic ascites or fluid collection. The right ovary measures 2.8 x 1.8 x 1.7 cm for a volume of 4.63 mL. The left ovary measures 3.8 x 1.4 x 2.6 cm for a volume of 7.5 mL. Follicular cysts are present in the left ovary as well as a small hyperechoic mass measuring 2 x 1 x 2 mm. US/US pelvic and transvaginal IMPRESSION: Two small uterine fibroids are present. A small echogenic mass left ovary only measuring 2 mm in size in largest dimension. A follow up study is recommended in 6 months' time.
== END 2021-03-26 12:42 | disposition home or self-care (01) ==
LOC: HO.HMGCX 12:41
PROVIDERS: PCP Internal Medicine; Visit Provider Obstetrics & Gynecology
DX: R10.2 Pelvic and perineal pain (principal)
CPT/HCPCS: 76830; 76856

== ENCOUNTER → 2021-04-01 13:04 | Outpatient (BNVA) | payer OTHER, SELFPAY | PROVIDERS: PCP Internal Medicine; Visit Provider Obstetrics & Gynecology ==

== ENCOUNTER 2021-04-02 09:33 | Outpatient (REF) | payer OTHER, SELFPAY ==
[2021-04-02 11:53] LABS: Appearance Urine CLEAR; Color Urine YELLOW; Glucose Urine UA NEG (NEG); Leukocyte Esterase Urine NEG (NEG); Nitrite Urine NEG (NEG); Specific Gravity - Urine 1.025 (1.005-1.025); UACC Culture Trigger NO; Urine Blood TRACE (NEG); Urine Ketones NEG (NEG); Urine Protein NEG (NEG-TRACE)
[2021-04-02 12:40] LABS: RBC Urine 0-2 /HPF (0); Squamous Epithelial Cell Urine TRACE /LPF; WBC Urine 0-2 /HPF (0-4)
[2021-04-06 02:27] LABS: CA-125 9 U/mL (<35)
== END 2021-04-02 09:34 | disposition home or self-care (01) ==
LOC: HO.LAB 09:33
PROVIDERS: PCP Internal Medicine; Visit Provider Obstetrics & Gynecology
DX: N83.299 Other ovarian cyst, unspecified side (principal)
CPT/HCPCS: 36415; 81001; 86304

== ENCOUNTER 2021-04-19 13:53 | Outpatient (REF) | payer OTHER, SELFPAY ==
--- NOTE | ~2021-04-19 | CT_ITS ---
EXAMINATION: CT ABDOMEN AND PELVIS WITHOUT AND WITH CONTRAST CLINICAL INFORMATION: Microscopic hematuria. COMPARISON: No similar priors. TECHNIQUE: Multidetector volumetric imaging was performed of the abdomen and pelvis before and after the IV administration of 85 mL of Omnipaque 300 intravenous contrast. Sagittal and coronal reformatted images were obtained on the technologist's workstation. This CT examination was performed using dose optimization techniques as appropriate, variously including the following: *Automated exposure control *Adjustment of mA and/or kV according to patient size (this includes techniques or standardized protocols for targeted exams where dose is matched to indication/reason for exam; i.e. extremities or head) *Use of iterative reconstruction technique DLP: 338 mGy-cm FINDINGS: LUNG BASES: The visualized lung bases are unremarkable. LIVER, GALLBLADDER, AND BILIARY TREE: The liver is normal in size, shape, and attenuation. No focal hepatic lesion or biliary ductal dilatation is present. The gallbladder is unremarkable with no evidence of radiopaque gallstones, gallbladder wall thickening, or obvious pericholecystic inflammatory changes. PANCREAS: Unremarkable. SPLEEN: Unremarkable. ADRENAL GLANDS: Unremarkable. KIDNEYS AND URETERS: Special attention was given to the kidneys. Right Kidney: Measures 10.3 cm in maximum dimension without nephrolithiasis or focal parenchymal abnormalities. No hydronephrosis. No significant perinephric fat stranding. Left Kidney: Measures 10.4 cm in maximum dimension without nephrolithiasis or focal parenchymal abnormalities. No hydronephrosis. No significant perinephric fat stranding. Excretory Images: There are multiple papillary filling defects in both kidneys (see etienne saved images). No other filling defects are identified within the opacified segments of the ureters or urinary bladder. BLADDER: No focal abnormalities, wall thickening or perivesical fat stranding. GASTROINTESTINAL TRACT: Tiny hiatal hernia. The stomach and the small bowel are nondilated. Normal appendix. No pericolic inflammatory changes or evidence of bowel obstruction. ABDOMINAL WALL: No significant hernia is appreciated. LYMPH NODES: Prominent mesenteric lymph nodes measuring up to 0.6 cm in maximum short axis with mild associated mesenteric haziness of uncertain significance. VASCULAR: Unremarkable. PELVIC VISCERA: Retroflexed uterus. No pelvic masses. OSSEOUS STRUCTURES: No acute or aggressive osseous abnormalities. CT/CT abdomen pelvis wo/w con IMPRESSION: Multiple indeterminate bilateral papillary filling defects are in favor to represent prominent papillae given patient's age and their nonfocal nature. However, in the setting of hematuria, if not already obtained, consider consultation with urology to determined further management. Mildly prominent mesenteric lymph nodes with associated mesenteric haziness of uncertain significance. Small hiatal hernia.
[2021-04-19] MEDS: iohexoL 350 MG/ML 100 ML INFUS..BTL 85 ML IV (15:02)
== END 2021-04-19 13:54 | disposition home or self-care (01) ==
LOC: HO.CT 13:53
PROVIDERS: Visit Provider Obstetrics & Gynecology
DX: R31.29 Other microscopic hematuria (principal)
CPT/HCPCS: 74178; Q9967

== ENCOUNTER → 2021-05-13 09:52 | Outpatient (BNVA) | payer OTHER, SELFPAY | DX: R31.9 Hematuria, unspecified (principal); Q27.34 Arteriovenous malformation of renal vessel | CPT/HCPCS: 99202 ==

== ENCOUNTER 2021-07-08 08:12 | Outpatient (REF) | payer OTHER, SELFPAY ==
--- NOTE | ~2021-07-08 | US_ITS ---
EXAMINATION: US PELVIS CLINICAL INFORMATION: Ovarian cyst COMPARISON: Previous pelvic ultrasound and CT of the abdomen and pelvis March 2021 TECHNIQUE: Ultrasound of the pelvis is performed using both transabdominal and transvaginal transducers along with Doppler. Transvaginal imaging is performed due to inadequate visualization transabdominally. FINDINGS: The uterus is retroverted and measures 7.3 x 4.7 x 5.3 cm in dimension. No focal uterine lesion is seen. Endometrial thickness is normal measuring 0.3 cm. The right ovary measures 3 x 1.6 x 2.1 cm. The left ovary measures 4.1 x 1.6 x 2.2 cm. There are bilateral small ovarian cysts or follicles. There is a 2 x 4 x 2 mm echogenic density in the left ovary similar to previous ultrasound exam. When compared with previous CT this may represent a calcification. There is no fluid in the pelvis. US/US pelvic and transvaginal IMPRESSION: Probable small calcification in the left ovary. Otherwise unremarkable exam.
== END 2021-07-08 08:13 | disposition home or self-care (01) ==
LOC: HO.HMGCX 08:12
PROVIDERS: PCP Internal Medicine; Visit Provider Obstetrics & Gynecology
DX: N83.299 Other ovarian cyst, unspecified side (principal)
CPT/HCPCS: 76830; 76856

== ENCOUNTER → 2021-07-15 14:57 | Outpatient (BNVA) | payer OTHER, SELFPAY | PROVIDERS: Visit Provider Obstetrics & Gynecology | DX: Z13.89 Encounter for screening for other disorder (principal) ==

== ENCOUNTER 2021-08-30 12:20 | Outpatient (REF) | payer OTHER, SELFPAY ==
[2021-08-30 13:35] LABS: MANUAL DIFF FLAG NO
[2021-08-30 13:59] LABS: Basophils Percent Auto 0.4 % (0-2); Eosinophils Percent Auto 0.8 % (0-4); Hematocrit 39.7 % (37.0-47.0); Hemoglobin 13.6 g/dl (12.0-16.0); Imm Gran Abs Auto 0.02 X10*3/uL (0.00-0.03); Imm Gran Pct Auto 0.4 % (0.0-0.4); Lymphocytes Absolute Auto 1.3 X10*3/uL (1.2-4.9); Mean Corpuscular HGB Conc 34.3 g/dl (31.0-35.0); Mean Corpuscular Hemoglobin 30.5 pg (27.0-33.0); Mean Platelet Volume 9.4 fL (9.4-12.3); Monocytes Absolute Auto 0.3 X10*3/uL (0.1-1.2); Neutrophils Absolute Auto 3.4 x10*3/uL (2.0-8.3); Neutrophils Percent Auto 67.4 % (45-73); Platelet Count 266 X10*3/uL (160-400); Red Blood Count 4.46 X10*6/uL (4.20-5.50); Red Cell Distribution Width 11.9 % (11.0-16.0)
[2021-08-30 14:25] LABS: Alanine Aminotransferase 17 U/L (0-31); Albumin Level 4.4 g/dL (3.5-5.0); Alkaline Phosphatase 54 U/L (39-117); Anion Gap 12 (12-20); Aspartate Amino Transferase 21 U/L (5-31); Bilirubin Total 0.7 mg/dL (0.0-1.0); Blood Urea Nitrogen 9 mg/dL (9-16); Calcium 9.5 mg/dL (8.4-10.2); Carbon Dioxide 27 mmol/L (22-29); Chloride 105 mmol/L (96-108); Estimated Glomerular Filt Rate > 60; Glucose Random 86 mg/dL (60-115); Potassium 4.5 mmol/L (3.3-5.1); Sodium 139 mmol/L (135-145); Total Protein 7.2 g/dL (6.5-8.0)
[2021-08-30 14:45] LABS: TSH reflex Free T4 1.08 uIU/mL (0.32-4.0)
[2021-09-01 13:31] LABS: Transglutaminase Ab IgG <1.0 U/mL; Transglutaminase IgA <1.0 U/mL
== END 2021-08-30 12:21 | disposition home or self-care (01) ==
LOC: HO.LAB 12:20
PROVIDERS: PCP Internal Medicine; Referring Provider Internal Medicine; Visit Provider Nurse Practitioner
DX: K58.2 Mixed irritable bowel syndrome (principal); K59.4 Anal spasm; R19.7 Diarrhea, unspecified
CPT/HCPCS: 36415; 80053; 84443; 85025; 86003; 86140; 86364; 99202

== ENCOUNTER → 2021-09-27 15:03 | Outpatient (BNVA) | payer OTHER, SELFPAY | PROVIDERS: PCP Internal Medicine; Referring Provider Internal Medicine; Visit Provider Nurse Practitioner | DX: K59.4 Anal spasm (principal); K58.2 Mixed irritable bowel syndrome | CPT/HCPCS: 99212 ==

== ENCOUNTER 2021-12-14 00:57 | Emergency (ER) | payer OTHER, SELFPAY ==
[2021-12-14 01:03] VITALS: BP 130/94; PULSE 86; RESP 16; TEMP 36.9; O2SAT 100; BMI 25.3
[2021-12-14 01:17] LABS: UPreg QC Valid YES; Urine Pregnancy NEGATIVE (NEGATIVE)
[2021-12-14 01:18] LABS: Appearance Urine Turbid; Color Urine Red; Glucose Urine UA Negative (Negative); Leukocyte Esterase Urine Large (3+) (Negative); Nitrite Urine Negative (Negative); Urine Blood Large (3+) (Negative); Urine Ketones Negative (Negative); Urine Protein 300 (3+) mg/dL (Neg-Trace)
[2021-12-14 01:21] LABS: Bacteria Urine Trace (None Seen); Hyaline Casts Urine 0-2 /LPF (0-2); RBC Urine >20 /HPF (0-2); Squamous Epithelial Cell Urine 0-2 /HPF (0-2); UACC Culture Trigger YES; WBC Urine >50 /HPF (0-5)
--- NOTE | 2021-12-14 01:34 | ED_ITS ---
HPI - Female Genitourinary General Chief complaint: Urogenital-Female Stated complaint: bladder infection? Time Seen by Provider: 12/14/21 01:34 Source: patient Mode of arrival: ambulatory Limitations: no limitations History of Present Illness HPI Narrative: patient with a new sexual partner, has frequency and now bleeding. She states a slight change in her vaginal discharge. No fever no back pain. MD elicited complaint: dysuria and UTI Pertinent past history: recurrent UTIs Onset (ago): hour(s) Severity: moderate Female Urogenital Radiation: Suprapubic Quality of pain: sharp Consistency: intermittent Vaginal discharge: other (finished her period yesterday) Urinary symptoms: Dysuria, Urgency, Frequency and Hematuria Relieving factors: urination Associated symptoms: denies other symptoms Sexual activity: Yes and New Sexual Partners Patient : No Related Data Home Medications Medication Instructions Recorded Confirmed omeprazole 20 mg capsule,delayed 20 mg PO DAILY 03/08/21 10/29/21 release Previous Rx's Medication Instructions Recorded sennosides 8.6 mg-docusate sodium 2 tab-cap PO BEDTIME 30 days #60 04/05/21 50 mg tablet (Senna-S) tabs alprazolam 0.25 mg tablet 0.25 mg PO DAILY PRN anxiety 30 06/03/21 days #10 tabs scopolamine base 1 mg over 3 days 1 patch transdermal Q3D PRN motion 07/29/21 transdermal patch (Transderm-Scop) sickness #5 ea dicyclomine 10 mg capsule 10 mg PO TID #90 caps 09/27/21 fluconazole 150 mg tablet 150 mg PO Q3D 2 doses #2 tabs 10/29/21 (Diflucan) fluoxetine 10 mg capsule 10 mg PO DAILY 90 days #90 caps 11/10/21 cephalexin 500 mg capsule 500 mg PO QID #20 caps 12/14/21 Allergies Allergy/AdvReac Type Severity Reaction Status Date / Time levofloxacin [From Levaquin] AdvReac Mild dizziness Verified 12/14/21 01:01 metronidazole [From Flagyl] AdvReac Mild dizziness Verified 12/14/21 01:01 Review of Systems Constitutional: Constitutional: Reports no additional constitutional complaints Eyes: Eyes: Reports no additional eye complaints ENT: Denies dizziness Cardiovascular: Cardiovascular: Reports no additional cardiovascular complaints Respiratory: Respiratory: Reports as per HPI Gastrointestinal: Gastrointestinal: Reports no additional gastrointestinal complaints Genitourinary: Genitourinary: Reports no additional female genitourinary complaints Musculoskeletal: Musculoskeletal: Reports no additional musculoskeletal complaints Integumentary/Breasts: Skin/Breast: Denies rash Neurologic: Reports system reviewed and no additional complaints, except as documented, Denies dizziness and Denies Sensory deficit (Neuro) Psychiatric: Psychiatric: Denies anxiety PMFSH Past Medical History Medical History Anxiety and depression Complex ovarian cyst Constipation Constipation COVID-19 virus infection Depression Diarrhea Dyspnea Epigastric abdominal pain Family planning advice Female pelvic pain Hematuria History of abnormal cervical Pap smear Hx LEEP (loop electrosurgical excision procedure), cervix, IBS (irritable bowel syndrome) Myoma No-show for appointment Palpitations 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 Proctalgia fugax Rectal pain SOB (shortness of breath) Vaginal bleeding Vaginal discharge Vertigo Family History Family History Father Bladder cancer Mother Breast cancer Uterine cancer Diabetes HTN (hypertension) Maternal Grandmother Breast cancer Paternal Uncle Bone cancer Social History Social History Housing: House Alcohol intake: current Alcohol intake frequency: holidays/special occasions only Alcohol type: beer, wine and hard liquor Patient Tobacco Use Status: Never used Tobacco e-Cigarette/Vaping Use: Never Used Second Hand Smoke Exposure: No Patient : No service: No Current occupational status: employed Sexual orientation: Straight/Heterosexual Gender identity: Female Cognitive needs: No Hearing needs: No Vision needs: No Physical Exam Vital Signs: Vital Signs: Last Vital Signs Temp 98.4 F 12/14/21 01:03 Pulse 86 12/14/21 01:03 Resp 16 12/14/21 01:03 BP 130/94 H 12/14/21 01:03 Pulse Ox 100 12/14/21 01:03 O2 Del Method 12/14/21 01:03 BMI result Body Mass Index 25.3 Const: General: healthy appearing Nutritional Appearance: average body habitus Orientation/consciousness: oriented to person and patient oriented x3 Limitations: no limitations HEENT: Head: Yes normal to inspection Ears: external ears normal General nose exam: Normal external nose present Mouth: Normal oral and palatal mucosa present and oropharynx normal Throat: Yes posterior oropharynx normal Eyes: General: appearance normal, both eyes and all related structures Neck: Other: supple Neck: Yes normal visual inspection Chest: Chest palpation & inspection: normal inspection of the chest Resp: Auscultation: clear to auscultation bilaterally Cardio: Jugular venous distension: no JVD Rate: regular rate Rhythm: regular rhythm Heart sounds: S1 normal heart sound present and S2 normal heart sound present GI: Inspection: Yes normal to inspection Palpation (GI): Soft to palpation, nontender and No hepatosplenomegaly present Auscultation: normal bowel sounds : General: Yes no CVA tenderness Back/Spine/Pelvis: Back: no CVA tenderness Skin: General skin exam: no rashes or lesions noted Neuro: General: oriented to person and patient oriented x3 Cranial nerves: Yes CN's II-XII intact bilaterally Motor exam (neuro): 5/5 motor strength present throughout Sensory Exam: No Sensory deficit (Neuro) Extrem: General: Yes normal to inspection Psych: Appearance: grossly normal Course Reevaluation(s) Reevaluation #1: patient with likely UTI will not hold her for GC/chlamydia results as she is seeing Dr. Rossi tomorrow. Will start keflex Time: 01:44 MDM - Female Genitourinary Lab Data Labs: Lab Results 12/14/21 12/14/21 Range/Units 01:06 01:10 Urine Color Red A Urine Appearance Turbid Urine pH 6.0 (5.0-8.0) Ur Specific [place] 1.010 (1.005-1.025) Urine Protein 300 (3+) H (Neg-Trace) mg/dL Urine Glucose (UA) Negative (Negative) mg/dL Urine Ketones Negative (Negative) mg/dL Urine Blood Large (3+) H (Negative) Urine Nitrite Negative (Negative) Ur Leukocyte Esterase Large (3+) H (Negative) Urine RBC >20 H (0-2) /HPF Urine WBC >50 H (0-5) /HPF Ur Squamous Epith Cells 0-2 (0-2) /HPF Urine Bacteria Trace (None Seen) Hyaline Casts 0-2 (0-2) /LPF Urine Test NEGATIVE (NEGATIVE) Discharge Plan Discharge Clinical Impression: Urinary tract infection Patient Disposition: Home, Self-Care Instructions: Urinary Tract Infection in Women (ED) Prescriptions: New cephalexin 500 mg capsule 500 mg PO QID Qty: 20 0RF No Action alprazolam 0.25 mg tablet 0.25 mg PO DAILY PRN (Reason: anxiety) 30 Days Qty: 10 0RF fluoxetine 10 mg capsule 10 mg PO DAILY 90 Days Qty: 90 1RF fluconazole [Diflucan] 150 mg tablet 150 mg PO Q3D Qty: 2 0RF Rx Instructions: may repeat second dose 72 hrs after first dose if symptoms persist sennosides-docusate sodium [Senna-S] 8.6-50 mg tablet 2 tab-cap PO BEDTIME 30 Days Qty: 60 3RF scopolamine base [Transderm-Scop] 1 mg over 3 days patch 3 day 1 patch transdermal Q3D PRN (Reason: motion sickness) Qty: 5 1RF omeprazole 20 mg capsule,delayed release(DR/EC) 20 mg PO DAILY dicyclomine 10 mg capsule 10 mg PO TID Qty: 90 6RF Referrals: Pierce Rossi MD [Physician] - 1 day
[2021-12-14] MEDS: Phenazopyridine HCL 100 MG TABLET PO (01:58)
[2021-12-14 02:05] VITALS: BP 128/73; PULSE 86; RESP 18; TEMP 36.8; O2SAT 99
[2021-12-14] MEDS: cephALEXin 500 MG CAPSULE PO (02:05)
[2021-12-14 03:29] LABS: CT PCR NOT DETECTED (Not Detect.); NG PCR NOT DETECTED (Not Detect.)
== END 2021-12-14 02:07 | disposition home or self-care (01) ==
LOC: HO.ED 01:51
PROVIDERS: Emergency Provider Emergency Medicine; PCP Obstetrics & Gynecology
DX: N39.0 Urinary tract infection, site not specified (principal); R30.0 Dysuria; R35.0 Frequency of micturition; R31.9 Hematuria, unspecified; Z79.899 Other long term (current) drug therapy
CPT/HCPCS: 81001; 81025; 87086; 87088; 87186; 87491; 87591; 99283

== ENCOUNTER 2021-12-14 16:08 | Outpatient (REF) | payer OTHER, SELFPAY ==
[2021-12-15 07:22] LABS: Syphilis Screen Nonreactive (Nonreactive)
[2021-12-15 07:44] LABS: HBsAGNum1 0.25 S/CO (0.00-0.99); HIV AB/AG Nonreactive (Nonreactive); HIV Num 1 0.06 S/CO (0.00-0.99); Hepatitis B Surface Antigen Negative (Negative); ~Hepatitis C Antibody Nonreactive (Nonreactive)
[2021-12-15 13:15] LABS: BV Int Neg Control Negative (Negative); BV Int Pos Control Positive (Positive)
[2021-12-18 10:16] LABS: HPV mRNA E6/E7 rflx Not Detected (Not Detected)
== END 2021-12-14 16:09 | disposition home or self-care (01) ==
LOC: HO.LAB 16:08
PROVIDERS: PCP Internal Medicine; Visit Provider Obstetrics & Gynecology
DX: Z01.419 Encounter for gynecological examination (general) (routine) without abnormal findings (principal); Z11.3 Encounter for screening for infections with a predominantly sexual mode of transmission
CPT/HCPCS: 36415; 86780; 86803; 87340; 87389; 87480; 87510; 87624; 87660; 88142

== ENCOUNTER 2022-02-07 13:19 | Outpatient (REF) | payer OTHER, SELFPAY ==
--- NOTE | ~2022-02-07 | MM_ITS ---
EXAMINATION: MM SCREENING DIGITAL BREAST TOMOSYNTHESIS, BILATERAL CLINICAL INFORMATION: Screening. Asymptomatic. The lifetime risk of breast cancer based on the Tyrer-Cuzick Model is 18%. COMPARISON: Mammography: 03/13/2019, 09/01/2016, 05/27/2016; ultrasound left breast 03/20/2019 TECHNIQUE: Digital breast tomosynthesis is performed in both the craniocaudal and mediolateral oblique views along with computer-aided detection (CAD). Synthesized 2D images are generated from the tomosynthesis. FINDINGS: The breasts are heterogeneously dense, which may obscure small masses (ACR BI-RADS breast composition Category c). The cyst 2:00 left breast has regressed since prior imaging 2018. There is a new 0.9 x 0.7 smooth oval mass posterior 11:00 with partly obscured margins, likely a cyst. Patient will be recalled for targeted ultrasound. Otherwise, breasts show no significant changes from prior studies. No architectural abnormality or abnormal calcifications. The axilla and skin contours are unremarkable. MM/MM tomosynthesis screening BI IMPRESSION: Left: -New oval nodule posterior 11:00 just under 1 cm, likely a cyst. Right: -No mammographic evidence of malignancy. ASSESSMENT: BI-RADS 0: Incomplete - Need Additional Imaging Evaluation RECOMMENDATION: 1. Targeted ultrasound left breast. 2. Radiology department staff will contact the patient for additional imaging. This patient's information was entered into a reminder system with a target due date for their next mammogram.
== END 2022-02-07 13:20 | disposition home or self-care (01) ==
LOC: HO.MAMMO 13:19
PROVIDERS: PCP Internal Medicine; Visit Provider Obstetrics & Gynecology
DX: Z12.31 Encounter for screening mammogram for malignant neoplasm of breast (principal)
CPT/HCPCS: 77063; 77067

== ENCOUNTER 2022-02-10 13:15 | Outpatient (REF) | payer OTHER, SELFPAY ==
--- NOTE | ~2022-02-10 | US_ITS ---
EXAMINATION: US DIAGNOSTIC ULTRASOUND BREAST, LEFT CLINICAL INFORMATION: Oval density left breast 11:00 position.. COMPARISON: Mammography of February 07, 2022 and studies dating back to September 09, 2015. TECHNIQUE: Ultrasound of the breast is performed with real-time clinton scale imaging and color Doppler. FINDINGS: About the 11:00 position approximately 7 cm from the nipple in the left breast there is a well-circumscribed anechoic structure with smooth back wall and increased through sound transmission consistent with a simple cyst measuring 8 x 5 x 8 mm. There is no solid mass, architectural abnormality, duct ectasia, or edema in the soft tissue planes. Results are discussed with the patient at time of visit. US/US breast LT limited IMPRESSION: Left breast density corresponds to a simple cyst. ASSESSMENT: BI-RADS 2: Benign RECOMMENDATION: Routine annual mammography screening due in 12 months. This patient's information was entered into a reminder system with a target due date for their next mammogram.
== END 2022-02-10 13:16 | disposition home or self-care (01) ==
LOC: HO.MAMMO 13:15
PROVIDERS: PCP Internal Medicine; Visit Provider Obstetrics & Gynecology
DX: N63.22 Unspecified lump in the left breast, upper inner quadrant (principal)
CPT/HCPCS: 76642

== ENCOUNTER 2022-03-10 09:42 | Outpatient (REF) | payer OTHER, SELFPAY ==
[2022-03-10 14:55] LABS: CT PCR NOT DETECTED (Not Detect.); NG PCR NOT DETECTED (Not Detect.)
[2022-03-11 10:08] LABS: BV Int Neg Control Negative (Negative); BV Int Pos Control Positive (Positive)
== END 2022-03-10 09:43 | disposition home or self-care (01) ==
LOC: HO.LNP 09:42
PROVIDERS: Visit Provider Advanced Practice Midwife
DX: Z11.3 Encounter for screening for infections with a predominantly sexual mode of transmission (principal); N76.0 Acute vaginitis
CPT/HCPCS: 87480; 87491; 87510; 87591; 87660; 99212

== ENCOUNTER 2022-05-02 12:47 | Outpatient (REF) | payer OTHER, SELFPAY ==
--- NOTE | ~2022-05-02 | US_ITS ---
EXAMINATION: US RETROPERITONEAL LIMITED (RENAL ONLY) CLINICAL INFORMATION: Arteriovenous malformation of renal vessel. COMPARISON: CT abdomen and pelvis without and with contrast 04/19/2021. TECHNIQUE: Real-time imaging of the kidneys. FINDINGS: RIGHT KIDNEY: 10.1 x 5.5 x 3.9 cm (SAG x AP x TRV). The kidney is normal in size, contour, and echogenicity. Renal cortical thickness is normal. No calculi or focal parenchymal lesions. No hydronephrosis. LEFT KIDNEY: 10.1 x 5.7 x 4.6 cm (SAG x AP x TRV). The kidney is normal in size, contour, and echogenicity. Renal cortical thickness is normal. No calculi or focal parenchymal lesions. No hydronephrosis. US/US renal BI IMPRESSION: Unremarkable renal ultrasound.
== END 2022-05-02 12:48 | disposition home or self-care (01) ==
LOC: HO.US 12:47
DX: Q27.34 Arteriovenous malformation of renal vessel (principal)
CPT/HCPCS: 76775

== ENCOUNTER 2022-06-23 06:53 | Outpatient (REF) | payer OTHER, SELFPAY ==
[2022-06-23 07:02] LABS: MANUAL DIFF FLAG NO
[2022-06-23 08:55] LABS: Basophils Percent Auto 0.5 % (0-2); Eosinophils Absolute Auto 0.1 X10*3/uL (0.0-0.4); Eosinophils Percent Auto 2.1 % (0-4); Hematocrit 40.8 % (37.0-47.0); Hemoglobin 13.8 g/dl (12.0-16.0); Imm Gran Abs Auto 0.01 X10*3/uL (0.00-0.03); Imm Gran Pct Auto 0.2 % (0.0-0.4); Lymphocytes Absolute Auto 2.5 X10*3/uL (1.2-4.9); Lymphocytes Percent Auto 41.7 % (20-40); Mean Corpuscular HGB Conc 33.8 g/dl (31.0-35.0); Mean Corpuscular Hemoglobin 29.7 pg (27.0-33.0); Mean Corpuscular Volume 87.9 fL (80.0-98.0); Mean Platelet Volume 9.5 fL (9.4-12.3); Monocytes Absolute Auto 0.4 X10*3/uL (0.1-1.2); Monocytes Percent Auto 5.8 % (2-11); Neutrophils Percent Auto 49.7 % (45-73); Platelet Count 300 X10*3/uL (160-400); Red Blood Count 4.64 X10*6/uL (4.20-5.50); Red Cell Distribution Width 11.8 % (11.0-16.0); Retic HGB Equivalent 35.8 pg (30.0-35.0); Reticulocyte Percent 1.6 % (0.5-1.8); Reticulocytes Absolute 0.076 X10*6/uL (0.026-0.095); White Blood Count 6.1 X10*3/uL (4.8-10.8)
[2022-06-23 09:32] LABS: Alanine Aminotransferase 19 U/L (0-31); Albumin Level 4.2 g/dL (3.5-5.0); Alkaline Phosphatase 47 U/L (39-117); Anion Gap 11 (12-20); Aspartate Amino Transferase 21 U/L (5-31); Bilirubin Total 0.7 mg/dL (0.0-1.0); Blood Urea Nitrogen 15 mg/dL (9-16); Calcium 8.9 mg/dL (8.4-10.2); Carbon Dioxide 27 mmol/L (22-29); Chloride 106 mmol/L (96-108); Cholesterol 200 mg/dL; Estimated Glomerular Filt Rate > 60; Glucose Random 84 mg/dL (60-115); HDL Cholesterol 46 mg/dL; Iron 128 mcg/dL (30-160); LDL Cholesterol Calculated 143 mg/dl; Percent Iron Saturation 49 % (15-50); Potassium 4.2 mmol/L (3.3-5.1); Sodium 140 mmol/L (135-145); Total Iron Binding Capacity 262 mcg/dL (228-428); Triglycerides 57 mg/dL; Unsaturated Iron Binding 134 ug/dL
[2022-06-23 09:49] LABS: Ferritin 179 ng/mL (10-250); Folate 16.2 ng/mL (> or = 4.0); Free T4 (Free Thyroxine) 0.98 ng/dL (0.71-1.85); Thyroid Stimulating Hormone 1.99 uIU/mL (0.32-4.0); Vitamin B12 527 pg/mL (200-900); Vitamin D 25-OH Total 24.8 ng/mL (>30)
[2022-06-28 05:34] LABS: Vitamin A 74 mcg/dL (38-98)
== END 2022-06-23 06:54 | disposition home or self-care (01) ==
LOC: HO.LAB 06:53
PROVIDERS: PCP Internal Medicine; Visit Provider Internal Medicine
DX: L65.9 Nonscarring hair loss, unspecified (principal); E78.00 Pure hypercholesterolemia, unspecified
CPT/HCPCS: 36415; 80053; 80061; 82306; 82607; 82728; 82746; 83540; 84439; 84443; 84590; 85025; 85045

== ENCOUNTER 2022-10-04 09:19 | Outpatient (REF) | payer OTHER, SELFPAY | END 2022-10-04 09:20 | disposition home or self-care (01) | LOC: HO.LNP 09:19 | PROVIDERS: PCP Internal Medicine; Visit Provider Obstetrics & Gynecology | DX: N93.9 Abnormal uterine and vaginal bleeding, unspecified (principal); R10.2 Pelvic and perineal pain; R31.29 Other microscopic hematuria | CPT/HCPCS: 81025; 99212 ==

== ENCOUNTER 2022-10-04 09:52 | Outpatient (REF) | payer OTHER, SELFPAY ==
[2022-10-04 10:47] LABS: Hematocrit 40.8 % (37.0-47.0); Hemoglobin 13.9 g/dl (12.0-16.0); Mean Corpuscular HGB Conc 34.1 g/dl (31.0-35.0); Mean Corpuscular Hemoglobin 30.5 pg (27.0-33.0); Mean Corpuscular Volume 89.5 fL (80.0-98.0); Mean Platelet Volume 9.5 fL (9.4-12.3); Platelet Count 291 X10*3/uL (160-400); Red Blood Count 4.56 X10*6/uL (4.20-5.50)
[2022-10-04 11:44] LABS: TSH reflex Free T4 1.38 uIU/mL (0.32-4.0)
[2022-10-04 11:49] LABS: HCG Quantitative < 2 mIU/mL
[2022-10-04 16:29] LABS: CT PCR NOT DETECTED (Not Detect.); NG PCR NOT DETECTED (Not Detect.)
[2022-10-05 06:10] LABS: Syphilis Screen Nonreactive (Nonreactive)
[2022-10-05 07:27] LABS: HBsAGNum1 0.27 S/CO (0.00-0.99); HIV AB/AG Nonreactive (Nonreactive); HIV Num 1 0.06 S/CO (0.00-0.99); Hepatitis B Surface Antigen Negative (Negative); ~HepC Num1 0.07 S/CO (0.00-0.79); ~Hepatitis C Antibody Nonreactive (Nonreactive)
[2022-10-05 10:05] LABS: BV Int Neg Control Negative (Negative); BV Int Pos Control Positive (Positive)
[2022-10-05 17:58] LABS: Prolactin 9.4 ng/mL
== END 2022-10-04 09:53 | disposition home or self-care (01) ==
LOC: HO.LAB 09:52
PROVIDERS: PCP Internal Medicine; Visit Provider Obstetrics & Gynecology
DX: Z11.4 Encounter for screening for human immunodeficiency virus [HIV] (principal); N93.9 Abnormal uterine and vaginal bleeding, unspecified; R31.9 Hematuria, unspecified; N76.0 Acute vaginitis; Z20.2 Contact with and (suspected) exposure to infections with a predominantly sexual mode of transmission
CPT/HCPCS: 0353U; 84146; 84443; 84702; 85027; 86780; 86803; 87086; 87340; 87389; 87480; 87510; 87660

== ENCOUNTER 2022-10-10 14:24 | Outpatient (REF) | payer OTHER, SELFPAY ==
--- NOTE | ~2022-10-10 | US_ITS ---
EXAMINATION: US PELVIS CLINICAL INFORMATION: Abnormal uterine and vaginal bleeding; the last menstrual period was on 10/04/2022. COMPARISON: Pelvic ultrasound dated 07/08/2021. TECHNIQUE: Ultrasound of the pelvis is performed using both transabdominal and transvaginal transducers along with Doppler. Transvaginal imaging is performed due to inadequate visualization transabdominally. FINDINGS: Uterus: The uterus is retroverted and retroflexed. The uterus measures 7.2 x 4.5 x 5.3 cm. There are cervical calcifications, likely a sequela of prior cone biopsy. The double wall endometrial thickness is 0.3 mm. There are small subendometrial cysts. The uterus is smooth in contour and has normal myometrial echogenicity. No visible fibroid. Adnexa: Both ovaries are visualized. There is normal color flow to the adnexa. There is no ovarian torsion. There is no pelvic ascites or fluid collection. Right ovary measures 3.0 x 1.5 x 1.7 cm, volume 3.9 mL. Left ovary measures 4.3 x 1.5 x 2.2 cm, volume 7.7 mL. The left ovary contains a 1.6 x 1.3 x 1.4 cm benign, simple physiologic follicle. There is a 3 mm focal calcifications again identified within the left ovary. US/US pelvic and transvaginal IMPRESSION: 1. There are very small uterine subendometrial cysts, which can be seen in association with adenomyosis. 2. A 1.6 cm benign, physiologic left ovarian follicle is incidentally noted. This requires no imaging follow-up. 3. A 3 mm left ovarian calcification is redemonstrated. This may be idiopathic or may be associated with condition such as a teratoma or endometriosis. Follow-up imaging may be indicated.
== END 2022-10-10 14:25 | disposition home or self-care (01) ==
LOC: HO.HMGCX 14:24
PROVIDERS: PCP Internal Medicine; Visit Provider Obstetrics & Gynecology
DX: N93.9 Abnormal uterine and vaginal bleeding, unspecified (principal)
CPT/HCPCS: 76830; 76856

== ENCOUNTER 2022-10-31 14:07 | Outpatient (AMB) | payer OTHER, SELFPAY ==
[2022-10-31 14:30] VITALS: BP 100/60; BMI 26.7
--- NOTE | 2022-10-31 14:30 | MHC.OFFVIS ---
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 The patient had her menstrual cycle today. Urine culture grew lactobacillus 50-100 K, the patient is complaining of urinary frequency and dysuria PFSH Medical History Anxiety and depression Complex ovarian cyst Constipation Constipation COVID-19 virus infection Depression Diarrhea Dyspnea Epigastric abdominal pain Family planning advice Female pelvic pain Hematuria History of abnormal cervical Pap smear Hx LEEP (loop electrosurgical excision procedure), cervix, IBS (irritable bowel syndrome) Myoma No-show for appointment Palpitations [id number] syndrome Proctalgia fugax Rectal pain SOB (shortness of breath) Vaginal bleeding Vaginal discharge Vertigo Family History Father Bladder cancer Mother Breast cancer Uterine cancer Diabetes HTN (hypertension) Maternal Grandmother Breast cancer Paternal Uncle Bone cancer Social History Housing: House Alcohol intake: current Alcohol intake frequency: holidays/special occasions only Alcohol type: beer, wine and hard liquor Patient Tobacco Use Status: Never used Tobacco e-Cigarette/Vaping Use: Never Used Second Hand Smoke Exposure: No service: No Current occupational status: employed Sexual orientation: Straight/Heterosexual Gender identity: Female Cognitive needs: No Hearing needs: No Vision needs: No Female Reproductive History Menstrual Age of Menarche: 16 Date of last menstrual period: 10/31/22 Physical Exam Vital Signs: Last Vital Signs BP 100/60 10/31/22 14:30 BMI result Body Mass Index 26.7 Office Procedures Endometrial Biopsy Details: The patient was counseled regarding the indication and benefits of endometrial sampling to rule out endometrial pathology including not limited to endometrial hyperplasia or endometrial cancer and others; The alternatives (Either do nothing vs. hysteroscopy D&C) & the risks were discussed with the patient including but not limited: pain, uterine perforation, bleeding, infection, possible injury to bladder, bowel, ureter, possible need for blood transfusion with all its possible risks. The patient verbalized understanding all questions answered and signed consent. Urine test done in the office was negative The patient was placed into the dorsal lithotomy position; a speculum was inserted in the vagina. Using aseptic technique for the procedure, the cervix was cleansed with Betadine. The anterior lip of the cervix was grasped with a single tooth tenaculum. The uterus was sounded to 7 cm with a 4 mm Pipelle was used. Tissues samples were obtained and placed in formalin, in a patient labeled container and sent to the pathology department. At the end of the procedure, there was minimal bleeding noted The patient tolerated the procedure well and was discharged in good condition with the following instructions: Nothing in the vagina until the bleeding stops. No sex until the bleeding stops, to call if any of the following occurs: fever (>100.4), flu-like symptoms, abdominal pain, heavy bleeding, four smelling vaginal discharge. The patient was instructed to schedule a Follow up appointment in 2 weeks to discuss pathology results of the biopsy and treatment options. This note was generated with a voice recognition program. Some errors may have been overlooked during the review of this note. Sometimes these errors may affect the content or meaning of a given sentence. [id number] Biopsy Results AMB Test Urine AMB Test Urine Negative Last Edit by GILBERTO Amaya on 10/31/22 14:34 AMB Urinalysis, Automated UA Leukoctes 3 Tosin/uL Last Edit by GILBERTO Amaya on 10/31/22 14:34 UA Nitrite Negative Last Edit by GILBERTO Amaya on 10/31/22 14:34 UA Urobilinogen 0 mg/dL Last Edit by GILBERTO Amaya on 10/31/22 14:34 UA Protein 0 mg/dL Last Edit by GILBERTO Amaya on 10/31/22 14:34 UA pH 6.5 Last Edit by GILBERTO Amaya on 10/31/22 14:34 UA Blood 3 Ryan/uL Last Edit by GILBERTO Amaya on 10/31/22 14:34 UA Specific [place] 1.010 Last Edit by GILBERTO Amaya on 10/31/22 14:34 UA Ketone Negative Last Edit by GILBERTO Amaya on 10/31/22 14:34 UA Bilirubin 0 mg/dL Last Edit by GILBERTO Amaya on 10/31/22 14:34 UA Glucose 0 mg/dL Last Edit by GILBERTO Amaya on 10/31/22 14:34 Assessment & Plan Assessment & Plan (1) Abnormal uterine bleeding (AUB): Code(s): N93.9 - Abnormal uterine and vaginal bleeding, unspecified Plan: EMB done, see procedure note (2) Microscopic hematuria: Code(s): R31.29 - Other microscopic hematuria Plan: Since the patient has UTI symptoms and urine culture grew lactobacillus although it could be fashion alesia, will treat with amoxicillin 500 mg p.o. t.i.d. for 3 days and repeat urine dip in 2 weeks if persistent hematuria will refer to Urology Orders: Orders AMB Urinalysis Automated Today R31.9 - Hematuria, unspecified AMB HCG Urine Test Today Z32.02 - Encounter for test, result negative Surgical Today N93.9 - Abnormal uterine and vaginal bleeding, unspecified AMB Endometrial Biopsy Today N93.9 - Abnormal uterine and vaginal bleeding, unspecified Medications: New amoxicillin 500 mg PO TID 9 caps 0RF 3 days Coding Level of Care Code Est Pt Level 3 (09916) Procedure Only Diagnoses Abnormal uterine bleeding (AUB) N93.9 Microscopic hematuria R31.29 CPT Codes Endometrial Biopsy - CPT: 96105-[id number] Biopsy ([id number])
== END 2022-10-31 14:59 | disposition home or self-care (01) ==
LOC: HO.HWS 14:07
PROVIDERS: PCP Internal Medicine; Visit Provider Obstetrics & Gynecology
DX: N93.9 Abnormal uterine and vaginal bleeding, unspecified (principal); R31.29 Other microscopic hematuria; Z32.02 Encounter for pregnancy test, result negative; R31.9 Hematuria, unspecified
CPT/HCPCS: 58100; 99213

== ENCOUNTER 2022-10-31 14:07 | Outpatient (REF) | payer OTHER, SELFPAY | END 2022-10-31 14:08 | disposition home or self-care (01) | LOC: HO.LNP 14:07 | PROVIDERS: PCP Internal Medicine; Visit Provider Obstetrics & Gynecology | DX: N93.9 Abnormal uterine and vaginal bleeding, unspecified (principal); R30.0 Dysuria; R35.0 Frequency of micturition; R31.29 Other microscopic hematuria | CPT/HCPCS: 58100; 81003; 81025; 88305; 99212 ==

== ENCOUNTER 2022-11-02 15:21 | Outpatient (REF) | payer OTHER, SELFPAY ==
[2022-11-03 11:21] LABS: CT PCR NOT DETECTED (Not Detect.); NG PCR NOT DETECTED (Not Detect.)
[2022-11-03 12:39] LABS: BV Int Neg Control Negative (Negative); BV Int Pos Control Positive (Positive)
== END 2022-11-02 15:22 | disposition home or self-care (01) ==
LOC: HO.LNP 15:21
PROVIDERS: PCP Internal Medicine; Visit Provider Obstetrics & Gynecology
DX: R10.2 Pelvic and perineal pain (principal); R31.29 Other microscopic hematuria; Z20.2 Contact with and (suspected) exposure to infections with a predominantly sexual mode of transmission
CPT/HCPCS: 0353U; 87480; 87510; 87660; 99212

== ENCOUNTER 2022-11-02 15:21 | Outpatient (AMB) | payer OTHER, SELFPAY ==
[2022-11-02 15:45] VITALS: BP 108/64; BMI 26.7
--- NOTE | 2022-11-02 15:45 | MHC.OFFVIS ---
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 The patient has been on amoxicillin for last 2 days and would like STD screen last STD screen in 10/04/2022 were negative. Last urine dip showed persistent microscopic hematuria PFSH Medical History Anxiety and depression Complex ovarian cyst Constipation Constipation COVID-19 virus infection Depression Diarrhea Dyspnea Epigastric abdominal pain Family planning advice Female pelvic pain Hematuria History of abnormal cervical Pap smear Hx LEEP (loop electrosurgical excision procedure), cervix, IBS (irritable bowel syndrome) Myoma No-show for appointment Palpitations [id number] syndrome Proctalgia fugax Rectal pain SOB (shortness of breath) Vaginal bleeding Vaginal discharge Vertigo Family History Father Bladder cancer Mother Breast cancer Uterine cancer Diabetes HTN (hypertension) Maternal Grandmother Breast cancer Paternal Uncle Bone cancer Social History Housing: House Alcohol intake: current Alcohol intake frequency: holidays/special occasions only Alcohol type: beer, wine and hard liquor Patient Tobacco Use Status: Never used Tobacco e-Cigarette/Vaping Use: Never Used Second Hand Smoke Exposure: No service: No Current occupational status: employed Sexual orientation: Straight/Heterosexual Gender identity: Female Cognitive needs: No Hearing needs: No Vision needs: No Female Reproductive History Menstrual Age of Menarche: 16 Review of Systems Const All systems reviewed & are unremarkable except as noted in HPI and below Physical Exam Vital Signs: Last Vital Signs BP 108/64 11/02/22 15:45 BMI result Body Mass Index 26.7 General: Yes no CVA tenderness External Female Exam: normal external appearance and normal appearance of the urethra Speculum Exam - Vagina: normal appearance of the vagina, normal palpation, no lesions and no masses Speculum Exam - Cervix: normal appearance of the cervix, normal palpation, no lesions, no masses and nontender Bimanual exam- vagina & uterus: normal bimanual exam, normal palpation, uterine size normal, normal palpation, uterine shape normal, No Cervical tenderness present and non-tender Bimanual Exam- Adnexa, other: normal adnexae Back/Spine/Pelvis Back: no CVA tenderness Assessment & Plan Assessment & Plan (1) Microscopic hematuria: Code(s): R31.29 - Other microscopic hematuria Plan: Instructed the patient to continue her amoxicillin, repeat urine culture after antibiotic course and refer to urology (2) Screen for STD (sexually transmitted disease): Code(s): Z11.3 - Encounter for screening for infections with a predominantly sexual mode of transmission Plan: STD screening tests done includes: BV panel for trichomonas, GC/CT will send patient for serology std screening for HIV, RPR, Hep b s Ag, HepC Ab. Instructions given the patient to schedule a follow-up appointment for repeat serology screen in 6 months for possible false negatives. Orders: Orders Bacterial Vaginosis Panel Today R10.2 - Pelvic and perineal pain CT NG by PCR Today R10.2 - Pelvic and perineal pain Hepatitis B Surface Antigen Today Z20.2 - Contact with and (suspected) exposure to infections with a predominantly sexual mode of transmission Hepatitis C Antibody Today Z20.2 - Contact with and (suspected) exposure to infections with a predominantly sexual mode of transmission HIV Ab/Ag Today Z20.2 - Contact with and (suspected) exposure to infections with a predominantly sexual mode of transmission Syphilis Screen Today Z20.2 - Contact with and (suspected) exposure to infections with a predominantly sexual mode of transmission Referrals Urology Referral R31.29 - Other microscopic hematuria Coding Level of Care Code Est Pt Level 3 (75686) Diagnoses Microscopic hematuria R31.29 Screen for STD (sexually transmitted disease) Z11.3
== END 2022-11-02 16:03 | disposition home or self-care (01) ==
LOC: HO.HWS 15:21
PROVIDERS: PCP Internal Medicine; Visit Provider Obstetrics & Gynecology
DX: R31.29 Other microscopic hematuria (principal); Z11.3 Encounter for screening for infections with a predominantly sexual mode of transmission
CPT/HCPCS: 99213

== ENCOUNTER 2022-11-04 10:08 | Outpatient (REF) | payer OTHER, SELFPAY ==
[2022-11-04 11:40] LABS: Appearance Urine Clear; Color Urine Yellow; Glucose Urine UA Negative (Negative); Leukocyte Esterase Urine Negative (Negative); Nitrite Urine Negative (Negative); PH 6.5 (5.0-9.0); Specific Gravity - Urine 1.015 (1.005-1.025); UMIC TRIGGER UA YES; Urine Blood Trace (Negative); Urine Ketones Negative (Negative); Urine Protein Negative (Neg-Trace)
[2022-11-04 11:46] LABS: Bacteria Urine None Seen (None Seen); Hyaline Casts Urine 0-2 /LPF (0-2); Squamous Epithelial Cell Urine 0-2 /HPF (0-2); WBC Urine 0-5 /HPF (0-5)
== END 2022-11-04 10:09 | disposition home or self-care (01) ==
LOC: HO.LAB 10:08
PROVIDERS: PCP Internal Medicine; Visit Provider Obstetrics & Gynecology
DX: R31.9 Hematuria, unspecified (principal)
CPT/HCPCS: 81001; 87086

== ENCOUNTER 2022-11-09 13:25 | Outpatient (AMB) | payer OTHER, SELFPAY ==
--- NOTE | 2022-11-09 13:30 | A.OFFVIS_ITS ---
Intake Vital Signs 11/09/22 13:32 Height 5 ft 3 in Weight 151 lb BMI 26.7 BP 98/58 L Blood Pressure Location Rt brachial Position Sitting Intake Visit Reasons: pre op ? 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 The pathology showed the following: Endometrium, biopsy:? Benign late secretory endometrium with breakdown, scattered inactive glands, and mucinous metaplasia; no atypia or carcinoma (see comment).? Comment:? Mucinous metaplasia can be associated with hyperplasia or neoplasia and follow-up is warranted.? Some of the fragments may be derived from benign functional polyps. [facility] Medical History Anxiety and depression Complex ovarian cyst Constipation Constipation COVID-19 virus infection Depression Diarrhea Dyspnea Epigastric abdominal pain Family planning advice Female pelvic pain Hematuria History of abnormal cervical Pap smear Hx LEEP (loop electrosurgical excision procedure), cervix, IBS (irritable bowel syndrome) Myoma No-show for appointment Palpitations [id number] syndrome Proctalgia fugax Rectal pain SOB (shortness of breath) Vaginal bleeding Vaginal discharge Vertigo Family History Father Bladder cancer Mother Breast cancer Uterine cancer Diabetes HTN (hypertension) Maternal Grandmother Breast cancer Paternal Uncle Bone cancer Social History Housing: House Alcohol intake: current Alcohol intake frequency: holidays/special occasions only Alcohol type: beer, wine and hard liquor Patient Tobacco Use Status: Never used Tobacco e-Cigarette/Vaping Use: Never Used Second Hand Smoke Exposure: No Patient : No service: No Current occupational status: employed Sexual orientation: Straight/Heterosexual Gender identity: Female Cognitive needs: No Hearing needs: No Vision needs: No Female Reproductive History Menstrual Age of Menarche: 16 Date of last menstrual period: 11/03/22 Total pregnancies: 1 Full term: 2 Number of Living Children: 1 Review of Systems Card Reports as per HPI and Reports no additional complaints Resp Reports as per HPI and Reports no additional complaints GI Reports as per HPI and Reports no additional complaints Reports as per HPI Physical Exam Vital Signs: Last Vital Signs BP 98/58 L 11/09/22 13:32 BMI result Body Mass Index 26.7 Const General: cooperative, healthy appearing and comfortable Chest Chest palpation & inspection: normal inspection of the chest and normal palpation of entire chest wall Breast/axilla inspection: normal inspection of the breasts and normal inspection of the axillae Breast/axilla palpation: normal palpation of the breasts, normal palpation of th e axillae and no axillary lymphadenopathy Resp Effort & Inspection: normal respiratory effort Auscultation: clear to auscultation bilaterally Percussion: percussion normal Cardio Palpation: normal PMI Rate: regular rate Rhythm: regular rhythm Heart sounds: no murmurs and no rubs Peripheral pulses: Peripheral pulses 2+ throughout GI Inspection: Yes normal to inspection Palpation (GI): Soft to palpation, nontender, no guarding, not rigid and No hepatosplenomegaly present Percussion: Yes normal to percussion Auscultation: normal bowel sounds Rectal Exam - Female: deferred Assessment & Plan Assessment & Plan (1) Endometrial polyp: Comment: On EMB pathology with mucinous metaplasia rule out endometrial hyperplasia or neoplasia Code(s): N84.0 - Polyp of corpus uteri Plan: Discussed with the patient the results endometrial biopsy showing polyp and mucinous hyperplasia, recommended hysteroscopy D&C possible polypectomy myomectomy throughout atrial hyperplasia malignancy and removal of a possible polyp. Discussed with the patient the procedure , all benefits and risks including but not limited to inability to complete the procedure , bleeding, infection, possible need for blood transfusion with all its risk ( HIV,syphilis, Hepatitis, anaphylaxis shock, others..), injury to bladder, rectum, possible need for laparoscopy/laparotomy or hysterectomy. The patient verbalized understanding and signed the consent. Instructions given the patient to schedule a 2 week postoperative appointment Coding Level of Care Code Est Pt Level 3 (87435) Diagnoses Endometrial polyp N84.0
[2022-11-09 13:32] VITALS: BP 98/58; BMI 26.7
== END 2022-11-09 15:52 | disposition home or self-care (01) ==
LOC: HO.HWS 13:25
PROVIDERS: PCP Internal Medicine; Visit Provider Obstetrics & Gynecology
DX: N84.0 Polyp of corpus uteri (principal)
CPT/HCPCS: 99213

== ENCOUNTER → 2022-11-09 13:25 | Outpatient (BNVA) | payer OTHER, SELFPAY | PROVIDERS: PCP Internal Medicine; Visit Provider Obstetrics & Gynecology | DX: N84.0 Polyp of corpus uteri (principal) | CPT/HCPCS: 99212 ==

== ENCOUNTER 2022-11-15 14:42 | Outpatient (AMB) | payer OTHER, SELFPAY ==
[2022-11-15 14:56] VITALS: BP 100/80; PULSE 79; O2SAT 99; BMI 26.3
--- NOTE | 2022-11-15 14:56 | A.OFFPC_ITS ---
Vital Signs 11/15/22 14:56 Height 5 ft 3 in Weight 148 lb 6 oz BMI 26.3 BP 100/80 Blood Pressure Location Lt brachial Position Sitting Pulse 79 Pulse Source Pulse Oximeter Pulse Oximetry (%) 99 Oxygen Delivery Method Room Air Intake Visit Reasons: Abdominal pain Readiness Paraprofessional Required: No Accompanied by: Self / Same As Patient Allergies levofloxacin [From Levaquin] Adverse Reaction (Mild, Verified 11/15/22 14:56) dizziness metronidazole [From Flagyl] Adverse Reaction (Mild, Verified 11/15/22 14:56) dizziness Tobacco use date assessed: 11/15/22 Dental Screening Dental Screen Date: 11/15/22 Did you have a dental visit in the last 12 months?: Yes Did you have a dental problem in the last 6 months where you did not have access to dental care?: No Was dental information given to patient?: Patient has dentist HPI HPI Comments History of Present Illness Details 42-year-old overweight female with a history of JUAN LUIS GERD generalized anxiety disorder irritable bowel syndrome.Patient of Dr. Mckeon last seen in May coming in for abdominal pain.Patient states 2 weeks of bladder pain, urgency, cloudy urine. Patient states it feels like a sharp pain when she voids that radiates up to her belly button. Patient states she takes Aleve with some relief. Seen by Dr. Flo aguiar with amoxicillin for possible UTI and no improvement. Patient states as of recently it has improved. Patient denies any fever, chills, vomiting, flank pain and CVA tenderness. Patient does report occasional nausea. Patient states previously constipated but took milk of magnesia which relieved her constipation. Urinalysis completed 11/04/2022 3- just showed trace blood, urine culture showed no growth. UA completed office today continues to show trace blood, will send for culture. however unlikely related to UTI. Renal ultrasound completed in April and showed no renal calculi, recent transvaginal ultrasound and uterine biopsy showed endometrial polyp. Patient scheduled for hysteroscopy D&C possible polypectomy myomectomy throughout atrial hyperplasia malignancy and removal of a possible polyp. Patient states her pain is not related to her polyp and would like a bladder U/S, in addition to referral to reestablish care with gastroenterology for her IBS. [facility] Medical History (Updated 11/15/22 @ 15:35 by GEORGE Ross) Anxiety and depression Complex ovarian cyst Constipation Constipation COVID-19 virus infection Depression Diarrhea Dyspnea Epigastric abdominal pain Family planning advice Female pelvic pain Hematuria History of abnormal cervical Pap smear Hx LEEP (loop electrosurgical excision procedure), cervix, IBS (irritable bowel syndrome) Myoma No-show for appointment Palpitations [id number] syndrome Proctalgia fugax Rectal pain SOB (shortness of breath) Vaginal bleeding Vaginal discharge Vertigo Family History Father Bladder cancer Mother Breast cancer Uterine cancer Diabetes HTN (hypertension) Maternal Grandmother Breast cancer Paternal Uncle Bone cancer Social History Housing: House Alcohol intake: current Alcohol intake frequency: holidays/special occasions only Alcohol type: beer, wine and hard liquor Patient Tobacco Use Status: Never used Tobacco e-Cigarette/Vaping Use: Never Used Second Hand Smoke Exposure: No service: No Current occupational status: employed Sexual orientation: Straight/Heterosexual Gender identity: Female Cognitive needs: No Hearing needs: No Vision needs: No Female Reproductive History Menstrual Age of Menarche: 16 Questionnaire PHQ-9 Over the last 2 weeks, how often have you been bothered by any of the following problems? 1. Little interest or pleasure in doing things: several days 2. Feeling down, depressed, or hopeless: several days 3. Trouble falling or staying asleep, or sleeping too much: not at all 4. Feeling tired or having little energy: not at all 5. Poor appetite or overeating: not at all 6. Feeling bad about yourself - or that you are a failure or have let yourself or your family down: not at all 7. Trouble concentrating on things, such as reading the newspaper or watching television: not at all 8. Moving or speaking so slowly that other people could have noticed. Or the opposite - being so fidgety or restless that you have been moving around a lot more than usual: not at all 9. Thoughts that you would be better off or of hurting yourself in some way: not at all Total score: 2 Depression Screening Interpretation: Positive Source: Developed by Drs. Thom Angeles, Ingrid Marquez, Julio Cruz and colleagues, with an educational tawny from [employer]. Thrive Questionnaire Date Thrive assessed: 11/15/22 I am a: Patient What is your living situation today?: I have a steady place to live Within the past 12 months, did the food you bought not last and you didn't have the money to get more?: Never true Within the past 12 months, did you worry whether your food would run out before you got money to buy more?: Never true Do you have trouble paying for medicines?: No Do you have trouble getting transportation to medical appointments?: No Do you have trouble paying your heating and electricity bill?: No Do you have trouble taking care of your child, family member or friend?: No Do you have trouble with day-to-day activities such as bathing, preparing meals, shopping, managing finances, etc.?: No Are you currently unemployed and looking for a job?: No Are you interested in more education?: No Please select the resources that you would like help with: None Currently or been in a relationship where the following occur: no concerns reported AUDIT C Alcohol Use Questionnaire (AUDIT-C) 1. How often do you have a drink containing alcohol?: 2-3 times a week 2. How many drinks containing alcohol do you have on a typical day when you are drinking?: 3 or 4 3. How often do you have six or more drinks on one occasion?: Never Total Score: 4 ANGEL LUIS-7 AMB Questionnaire ANGEL LUIS-7 Date ANGEL LUIS - 7 assessed: 11/15/22 Feeling nervous, anxious, or on edge: 1 = Several days Not being able to stop or control worryin = Not at all Worrying too much about different things: 0 = Not at all Trouble relaxin = Not at all Being so restless that it is hard to sit still: 0 = Not at all Becoming easily annoyed or irritable: 0 = Not at all Feeling afraid as if something awful might happen: 0 = Not at all Total ANGEL LUIS-7 score (0-4 normal; 5-9 mild; 10-14 moderate; 15-21 severe): 1 Source: Developed by Drs. Thom Angeles, Ingrid Marquez, Julio Cruz and colleagues, with an educational tawny from [employer] [facility]. Review of Systems Const Denies chills, Denies fatigue, Denies fever(s) and Denies poor appetite Eyes Denies no additional complaints ENT Reports Normal hearing present Card Denies chest pain, Denies syncope, Denies rapid heart rate and Denies dyspnea Resp Denies cough and Denies dyspnea GI Denies change in stool character, Denies constipation, Denies diarrhea, Reports nausea and Denies vomiting Denies urinary frequency, Reports dysuria, Reports pelvic pain, Denies urinary hesitancy, Denies urinary urgency and Denies vaginal discharge Neuro Reports Normal hearing present, Denies confusion and Denies syncope Psych Denies confusion Endo Denies fatigue Physical exam (Primary Care) Vital Signs: Last Vital Signs Pulse 79 11/15/22 14:56 BP 100/80 11/15/22 14:56 Pulse Ox 99 11/15/22 14:56 Oxygen Delivery Method Room Air 11/15/22 14:56 BMI result Body Mass Index 26.3 Tobacco/Smoking Status: Tobacco use Status Tobacco use date assessed 11/15/22 11/15/22 15:01 Patient Tobacco Use Status Never used Tobacco 11/15/22 15:01 e-Cigarette/Vaping Use Never Used 11/15/22 15:01 PHQ-9: PHQ-9 Score PHQ-9: Total score 2 11/15/22 15:23 Depression Screening Interpretation: Positive Thrive Assessment: Date of Thrive Assessment Date Thrive assessed 11/15/22 11/15/22 15:01 Currently or been in a relationship where the following occur: no concerns reported Const General: No confusion Orientation/consciousness: No confusion HENMT Head: Yes normocephalic and Yes atraumatic Eyes Conjunctivae: conjunctivae normal Chest Chest palpation & inspection: normal inspection of the chest Resp Effort & Inspection: normal respiratory effort Auscultation: clear to auscultation bilaterally, no crackles, no rhonchi and no wheezes Cardio Rate: regular rate Rhythm: regular rhythm Heart sounds: S1 normal heart sound present and S2 normal heart sound present GI Inspection: Yes normal to inspection Palpation (GI): Soft to palpation, nontender and No hepatosplenomegaly present Auscultation: normoactive bowel sounds Neuro General: No confusion Cranial nerves: Yes Normal hearing present Extrem General: No edema Results AMB Urinalysis, Automated UA Leukoctes 0 Tosin/uL Last Edit by GILBERTO Harry on 11/15/22 15:25 UA Nitrite Negative Last Edit by Joy Morris A on 11/15/22 15:25 UA Urobilinogen 0.2 mg/dL Last Edit by Joy Morris A on 11/15/22 15:25 UA Protein 0 mg/dL Last Edit by Joy Morris A on 11/15/22 15:25 UA pH 6.0 Last Edit by Joyjailene Morris, A on 11/15/22 15:25 UA Blood 10 Ryan/uL Last Edit by Joy Morris, A on 11/15/22 15:25 UA Specific [place] 1.020 Last Edit by Joy Morris A on 11/15/22 15:25 UA Ketone Negative Last Edit by Joy Morris A on 11/15/22 15:25 UA Bilirubin 0 mg/dL Last Edit by Joy Morris A on 11/15/22 15:25 UA Glucose 0 mg/dL Last Edit by Joy Morris A on 11/15/22 15:25 Results Reviewed Results Reviewed: Laboratory Last Values Urine pH (Auto) 6.0 11/15/22 15:23 Specific [place] (Auto) 1.020 11/15/22 15:23 Urine Protein (Auto) 0 mg/dL 11/15/22 15:23 Glucose (UA)(Auto) 0 mg/dL 11/15/22 15:23 Urine Ketones (Auto) Negative 11/15/22 15:23 Urine Blood (Auto) 10 Ryan/uL 11/15/22 15:23 Urine Nitrite (Auto) Negative 11/15/22 15:23 Urine Bilirubin (Auto) 0 mg/dL 11/15/22 15:23 Urine Urobilinogen (Auto) 0.2 mg/dL 11/15/22 15:23 Leukocyte Esterase (Auto) 0 Tosin/uL 11/15/22 15:23 Assessment and Plan Assessment & Plan (1) Pelvic pain: Code(s): R10.2 - Pelvic and perineal pain Plan: Urinalysis negative when office, will send for culture. (2) Bladder pain: Code(s): R39.89 - Other symptoms and signs involving the genitourinary system Plan: Bladder ultrasound ordered to further evaluate. Patient has upcoming follow-up with urologist on 12/07/2022. (3) IBS (irritable bowel syndrome): Code(s): K58.9 - Irritable bowel syndrome without diarrhea Plan: Referral entered to reestablish care with gastroenterology for her history of IBS. Plan Keep scheduled follow-up with PCP or follow-up sooner if needed. Orders: Orders US bladder 11/15/22 R39.89 - Other symptoms and signs involving the genitourinary system AMB Urinalysis Automated 11/15/22 R10.9 - Unspecified abdominal pain AMB Urinalysis Automated 11/15/22 R10.2 - Pelvic and perineal pain Referrals Gastroenterology Referral K58.9 - Irritable bowel syndrome without diarrhea Coding Level of Care Code Est Pt Level 3 (06978) Diagnoses Pelvic pain R10.2 Bladder pain R39.89 IBS (irritable bowel syndrome) K58.9
== END 2022-11-15 16:07 | disposition home or self-care (01) ==
PROVIDERS: PCP Internal Medicine; Visit Provider Nurse Practitioner Family
DX: R10.2 Pelvic and perineal pain (principal); R39.89 Other symptoms and signs involving the genitourinary system; K58.9 Irritable bowel syndrome, unspecified
CPT/HCPCS: 81003; 99213

== ENCOUNTER 2022-11-18 09:03 | Day surgery (SDC) | payer OTHER, SELFPAY ==
--- NOTE | 2022-11-17 09:07 | P.CONAN_ITS ---
Documented by User: Ginny Gill NP 11/17/22 09:08 HPI - Anesthesia Eval Consult details Narrative: 42yo F for D&C Hysteroscopy,poss myomectomy,poss polypectomy, PMFSH Active Problems Active Problems: All Active Problems (Updated 11/15/22 @ 15:35 by GEORGE Ross) IBS (irritable bowel syndrome) (Acute) Bladder pain (Acute) Endometrial polyp (Acute) Hematuria (Acute) Pelvic pain (Acute) Abnormal uterine bleeding (AUB) (Acute) Hair loss (Acute) Annual physical exam (Acute) Acute vaginitis (Acute) Vaginal irritation (Acute) Family planning (Acute) Well woman exam (Acute) Breast cancer screening (Acute) Irritable bowel syndrome with both constipation and diarrhea (Acute) Calcification of ovary (Acute) Generalized anxiety disorder (Acute) Kidney arteriovenous malformation (Acute) Ovarian mass, left (Acute) Complex ovarian cyst (Acute) GERD (gastroesophageal reflux disease) (Acute) Microscopic hematuria (Acute) Screen for STD (sexually transmitted disease) (Acute) Anemia (Acute) Bacterial vaginosis (Acute) Menorrhagia (Acute) IUD (intrauterine device) in place (Acute) JUAN LUIS III (cervical intraepithelial neoplasia grade III) with severe dysplasia (Acute) HPV test positive (Acute) Microscopic hematuria (Acute) Past Medical History Medical History (Updated 11/18/22 @ 10:19 by Ivy Singer MD) Anxiety and depression Complex ovarian cyst Constipation COVID-19 virus infection Depression Diarrhea Dyspnea Epigastric abdominal pain Family planning advice Female pelvic pain Hematuria History of abnormal cervical Pap smear Hx LEEP (loop electrosurgical excision procedure), cervix, IBS (irritable bowel syndrome) Microscopic hematuria Myoma Palpitations [id number] syndrome Proctalgia fugax Rectal pain SOB (shortness of breath) Vaginal bleeding Vaginal discharge Vertigo Family History Family History Father Bladder cancer Mother Breast cancer Uterine cancer Diabetes HTN (hypertension) Maternal Grandmother Breast cancer Paternal Uncle Bone cancer Social History Social History Housing: House Alcohol intake: current Alcohol intake frequency: holidays/special occasions only Alcohol type: beer, wine and hard liquor Patient Tobacco Use Status: Never used Tobacco e-Cigarette/Vaping Use: Never Used Second Hand Smoke Exposure: No Advance Directives: No Advance Directives Information Provided: Yes service: No Current occupational status: employed Sexual orientation: Straight/Heterosexual Gender identity: Female Cognitive needs: No Hearing needs: No Vision needs: No Meds Allergies Allergy/AdvReac Type Severity Reaction Status Date / Time levofloxacin [From Levaquin] AdvReac Mild dizziness Verified 11/15/22 14:56 metronidazole [From Flagyl] AdvReac Mild dizziness Verified 11/15/22 14:56 Home Medications Medication Instructions Recorded Confirmed Last Taken Type No Known Home Meds 11/15/22 11/18/22 Unknown History Exam Exam Date and Time: November 17, [id number] Pertinent Lab Results Pertinent Lab Results: Laboratory Tests 06/23/22 10/04/22 07:00 10:09 WBC 6.0 Hgb 13.9 Hct 40.8 Plt Count 291 Sodium 140 Potassium 4.2 Chloride 106 Carbon Dioxide 27 BUN 15 Creatinine 0.88 Assessment and Plan Assessment Anesthesia Assessment: Chart Reviewed Documented by User: Ivy Singer MD 11/18/22 10:44 [facility] Active Problems Active Problems: All Active Problems (Updated 11/18/22 @ 09:31 by Ivy Singer MD) IBS (irritable bowel syndrome) (Acute) Bladder pain (Acute) Endometrial polyp (Acute) Hematuria (Acute) Pelvic pain (Acute) Abnormal uterine bleeding (AUB) (Acute) Hair loss (Acute) Annual physical exam (Acute) Acute vaginitis (Acute) Vaginal irritation (Acute) Family planning (Acute) Well woman exam (Acute) Breast cancer screening (Acute) Irritable bowel syndrome with both constipation and diarrhea (Acute) Calcification of ovary (Acute) Generalized anxiety disorder (Acute) Kidney arteriovenous malformation (Acute) Ovarian mass, left (Acute) Complex ovarian cyst (Acute) GERD (gastroesophageal reflux disease) (Acute) Microscopic hematuria (Acute) Screen for STD (sexually transmitted disease) (Acute) Anemia (Acute) Bacterial vaginosis (Acute) Menorrhagia (Acute) IUD (intrauterine device) in place (Acute) JUAN LUIS III (cervical intraepithelial neoplasia grade III) with severe dysplasia (Acute) HPV test positive (Acute) Microscopic hematuria (Acute) Past Medical History Medical History (Updated 11/18/22 @ 10:19 by Ivy Singer MD) Anxiety and depression Complex ovarian cyst Constipation COVID-19 virus infection Depression Diarrhea Dyspnea Epigastric abdominal pain Family planning advice Female pelvic pain Hematuria History of abnormal cervical Pap smear Hx LEEP (loop electrosurgical excision procedure), cervix, IBS (irritable bowel syndrome) Microscopic hematuria Myoma Palpitations [id number] syndrome Proctalgia fugax Rectal pain SOB (shortness of breath) Vaginal bleeding Vaginal discharge Vertigo Family History Family History Father Bladder cancer Mother Breast cancer Uterine cancer Diabetes HTN (hypertension) Maternal Grandmother Breast cancer Paternal Uncle Bone cancer Family history of problems with anesthesia: No Surgical History History of Problems with Anesthesia: No Social History Social History Housing: House Alcohol intake: current Alcohol intake frequency: holidays/special occasions only Alcohol type: beer, wine and hard liquor Patient Tobacco Use Status: Never used Tobacco e-Cigarette/Vaping Use: Never Used Second Hand Smoke Exposure: No Advance Directives: No Advance Directives Information Provided: Yes service: No Current occupational status: employed Sexual orientation: Straight/Heterosexual Gender identity: Female Cognitive needs: No Hearing needs: No Vision needs: No Meds Allergies Allergy/AdvReac Type Severity Reaction Status Date / Time levofloxacin [From Levaquin] AdvReac Mild dizziness Verified 11/15/22 14:56 metronidazole [From Flagyl] AdvReac Mild dizziness Verified 11/15/22 14:56 Home Medications Medication Instructions Recorded Confirmed Last Taken Type No Known Home Meds 11/15/22 11/18/22 Unknown History Exam Height,Weight and Vital Signs: Height 5 ft 3 in Weight 65.771 kg Vital Signs Temp Pulse Resp BP Pulse Ox O2 Del Method 11/18/22 09:35 97 F 92 20 110/75 99 Room Air Airway Mallampati Class: II TM Dist: >3cm Neck ROM: Full Loose/Missing/Broken Teeth: No (Denies broken, loose, missing teeth) Heart: RRR Lungs: CTAB Assessment and Plan Assessment Anesthesia Assessment: Anesthesia Plan Discussed Final Anesthetic Review Family History of Problems with Anesthesia: No History of Problems with Anesthesia: No NPO: Yes ASA Class: II Final Preanesthetic Review: No Changes in Pt Med Stat, Meds/Allgs Chart Reviewed, Consent Obtained/Reviewed and Anes Risks/Benef Reviewed Patient Risk: Low Procedure Risk: Low Assessment/Block/Sedation in SS: Assess/Block/Sedation-SS Anesthetic Plan Anesthetic Plan: GA Disposition: Standard PACU
[2022-11-18] VITALS (8 sets, daily range): BP systolic 105–120; BP diastolic 62–81; PULSE 63–92; RESP 16–20; TEMP 36.1–36.7; O2SAT 97–100; BMI 25.7
[2022-11-18 09:42] LABS: UPreg QC Valid YES; Urine Pregnancy NEGATIVE (NEGATIVE)
--- NOTE | 2022-11-18 09:47 | MHC.SHP ---
Pre-Procedural Eval Section A Date of Service: 11/18/22 The patient is an INPATIENT: No Changes since office visit: No Cold of Flu in the past 2 weeks, No New Medical Problems, No Changes in Medication and No Patient answered all questions The History & Physical has been completed within 30 days and I have reviewed it.: Yes Section B Chief Complaint: Polyp of corpus uteri Allergies: Allergies Allergy/AdvReac Type Severity Reaction Status Date / Time levofloxacin [From Levaquin] AdvReac Mild dizziness Verified 11/15/22 14:56 metronidazole [From Flagyl] AdvReac Mild dizziness Verified 11/15/22 14:56 Plan Diagnosis/Plan: Unchanged I have reviewed the history and physical and performed a pertinent physical examination on my patient. No changes have occurred unless specified. Time Spent With Patient Time: Total time managing care of this patient today ____ minutes.
[2022-11-18] MEDS: Lactated Ringers 1,000 ML 100 ML IVCONT (09:51)
--- NOTE | 2022-11-18 11:24 | PM.OP ---
Brief Operative Note Date of Service: 11/18/22 Pre-op diagnosis: Abnormal uterine bleeding, mucinous metaplasia and endometrial polyps on endometrial biopsy pathology Post-op diagnosis: same (Normal endometrial cavity) Procedure: Hysteroscopy D&C Surgeon: Pierce Rossi MD Anesthesia: GLMA Was an Education Consultant used for this Procedure?: No Estimated blood loss (mL): 0 Pathology: other (Endometrial Scrapping. ) Condition: stable Disposition: PACU
--- NOTE | 2022-11-18 11:25 | W.PM.OPN ---
Operative Note Operative Note Date of Service: 11/18/22 Narrative: Preop Diagnosis: Abnormal uterine bleeding, mucinous metaplasia and endometrial polyps on endometrial biopsy pathology Operation: Diagnostic Hysteroscopy, Dilataion & Curettage Post Op Diagnosis: Normal endometrial and endocervical cavity, no evidence of pathology QBL: Minimal Anesthesia: GLMA Surgeon: Pierce Rossi MD Transmission Rebuilder: None Complication: None Pathology: Endometrial Scrapings Procedure: The patient was put in the dorsal lithotomy position, scrubbed, and draped in the usual manner. A sterile speculum was inserted in the patient's vagina. The anterior lip of the cervix was grasped with a single tooth tenaculum. The cervix was dilated up to 5 mm, then the scope was inserted in the patient's uterus. Inspection revealed normal endocervical & endometrial cavity with no evidence of pathology. The scope was taken out of the uterine cavity , then sharp curetting was carried on with no complications. At the end of the procedure, all instruments were taken out of the patient uterine and vaginal cavity. The single tooth tenaculum was removed and homeostasis was assured using pressure. The patient tolerated the procedure well and was transferred to the PACU in a stable condition.
[2022-11-18] MEDS: Acetaminophen 325 MG TABLET 650 MG PO (11:43)
[2022-11-18] MEDS: oxyCODONE HCl Immed Release 5 MG TABLET PO (11:44)
== END 2022-11-18 12:55 | disposition home or self-care (01) ==
PROVIDERS: PCP Internal Medicine; Visit Provider Obstetrics & Gynecology
PROC: 0UDB8ZZ Extraction of Endometrium, Via Natural or Artificial Opening Endoscopic (ICD-10-PCS; CPT 58558; principal; 2022-11-18 11:20)
DX: N84.0 Polyp of corpus uteri (principal); N93.9 Abnormal uterine and vaginal bleeding, unspecified; Z97.5 Presence of (intrauterine) contraceptive device; D64.9 Anemia, unspecified; Z88.1 Allergy status to other antibiotic agents
CPT/HCPCS: 58558; 81025; 88305; J1100; J2250; J2405

== ENCOUNTER → 2022-11-18 09:03 | Outpatient (BNV) | payer OTHER, SELFPAY | PROVIDERS: PCP Internal Medicine; Visit Provider Obstetrics & Gynecology | DX: N39.0 Urinary tract infection, site not specified (principal); N84.0 Polyp of corpus uteri | CPT/HCPCS: 58558 ==

== ENCOUNTER 2022-11-28 11:31 | Outpatient (AMB) | payer OTHER, SELFPAY ==
--- NOTE | 2022-11-28 11:36 | MHC.OFFVIS ---
Intake Vital Signs 11/28/22 11:43 Height 5 ft 3 in Weight 154 lb BMI 27.3 BP 100/64 Intake Visit Reasons: EMB results/urine dip Cuff Setter Required: No Information Interpreted: non-clinical & clinical Accompanied by: Self / Same As Patient Allergies levofloxacin [From Levaquin] Adverse Reaction (Mild, Verified 11/28/22 11:44) dizziness metronidazole [From Flagyl] Adverse Reaction (Mild, Verified 11/28/22 11:44) dizziness Is last menstrual period known: Yes Last menstrual period: 11/25/22 HPI HPI Comments History of Present Illness Details The patient is presenting post hysteroscopy D&C no complaints minimal vaginal bleeding no feverishness chills or abdominal pain. The pathology showed the following: Endometrium, curettage:? Benign dyssynchronous endometrium with secretory and disordered proliferative glands; no atypia or carcinoma. Comment: Some fragments may be derived from benign polyps. The following workup for AUB was done: H&H= 13.9/40.8 TSH, hCG, prolactin, GC and chlamydia were negative. Endometrial biopsy pathology : Endometrium, biopsy:? Benign late secretory endometrium with breakdown, scattered inactive glands, and mucinous metaplasia; no atypia or carcinoma (see comment).? Comment:? Mucinous metaplasia can be associated with hyperplasia or neoplasia and follow-up is warranted.? Some of the fragments may be derived from benign functional polyps. Co testing was done in 12/13 was negative. Mammogram was done in 02/12 was BI-RADS 2. Pelvic ultrasound showed the followin.. There are very small uterine subendometrial cysts, which can be seen in association with adenomyosis. ? 2. A 1.6 cm benign, physiologic left ovarian follicle is incidentally noted. This requires no imaging follow-up. ? 3. A 3 mm left ovarian calcification is redemonstrated. This may be idiopathic or may be associated with condition such as a teratoma or endometriosis. Follow-up imaging may be indicated. The patient had microscopic hematuria urine culture grew lactobacillus, the patient was treated with amoxicillin repeat urine culture showed no growth, the patient was referred to Urology. [facility] Medical History Anxiety and depression Complex ovarian cyst Constipation COVID-19 virus infection Depression Diarrhea Dyspnea Epigastric abdominal pain Family planning advice Female pelvic pain Hematuria History of abnormal cervical Pap smear Hx LEEP (loop electrosurgical excision procedure), cervix, IBS (irritable bowel syndrome) Microscopic hematuria Myoma Palpitations [id number] syndrome Proctalgia fugax Rectal pain SOB (shortness of breath) Vaginal bleeding Vaginal discharge Vertigo Family History Father Bladder cancer Mother Breast cancer Uterine cancer Diabetes HTN (hypertension) Maternal Grandmother Breast cancer Paternal Uncle Bone cancer Social History Housing: House Alcohol intake: current Alcohol intake frequency: holidays/special occasions only Alcohol type: beer, wine and hard liquor Patient Tobacco Use Status: Never used Tobacco e-Cigarette/Vaping Use: Never Used Second Hand Smoke Exposure: No service: No Current occupational status: employed Sexual orientation: Straight/Heterosexual Gender identity: Female Cognitive needs: No Hearing needs: No Vision needs: No Female Reproductive History Menstrual Age of Menarche: 16 Date of last menstrual period: 11/25/22 Review of Systems Const All systems reviewed & are unremarkable except as noted in HPI and below Reports as per HPI and Reports no additional complaints GI Reports no additional complaints Reports no additional complaints Assessment & Plan Assessment & Plan (1) Abnormal uterine bleeding (AUB): Comment: Mucinous metaplasia on EMB, pathology negative on D&C pathology Code(s): N93.9 - Abnormal uterine and vaginal bleeding, unspecified Plan: Discussed with the patient the results of the work up done, risk of association of mucinous metaplasia with possible future endometrial hyperplasia and malignancy and options of treatment including control pills, Mirena IUD, cyclic progesterone. All pros, cons, risks and benefits if each option was discussed with the patient including a more detailed discussion about the mechanism of Mirena IUD action, risks (uterine perforation, infection, injury to bladder, bowel, displacement, and others) benefits (hypo menorrhea, amenorrhea, ...). In addition discussion with the patient was conducted regarding cyclic Provera, including a detailed discussion re: Progesterone treatment including mechanism of action, benefits (regular menses, endometrial protection form unopposed estrogen and reduction in the risk of endometrial hyperplasia and/or cancer ...), risks (Thrombosis, mood changes, weight gain, breast soreness, ? increased breast ca, others). The patient verbalized understanding and would like to think about both options and get back to us with her decision, The patient was instructed in case is interested in Mirena IUD to schedule Mirena IUD insertion on day 1-5 of next cycle . Recommended repeat EMB in 6 months given the association of mucinous metaplasia and endometrial hyperplasia malignancy (2) Calcification of ovary: Code(s): N83.8 - Other noninflammatory disorders of ovary, fallopian tube and broad ligament Plan: Discussed with the patient the finding on ultrasound showing calcification of the ovary, differential diagnosis discussed with patient included idiopathic, teratoma or endometriosis. Discussed with the patient the complex ovarian cyst by ultrasound. Discussed with the patient the main limitation of transvaginal ultrasonography alone as a diagnostic tool to distinguish benign from malignant masses relates to its lack of specificity and low positive predictive value for cancer. The differential diagnosis discussed with the patient includes the following but not limited to: benign and malignant gynecological and non-gynecological causes. Discussed with the patient options of treatment , in case CA 125 is not elevated, including laparoscopy ovarian cystectomy/oophorectomy vs. expectant management with repeat US in repeating pelvic US in 6 months from previous US. All pros, cons, risks and benefits of each approach were discussed with the patient including but not limited to a delay in the diagnosis and treatment of ovarian cancer affecting the prognosis; The patient decided to go ahead with expectant management. Instructions given the patient to schedule a 6 months follow-up ultrasound appointment. All questions were answered & the patient verbalized understanding and agreed with the plan. Orders: Orders US pelvic and transvaginal 6 Months N83.8 - Other noninflammatory disorders of ovary, fallopian tube and broad ligament Coding Level of Care Code Est Pt Level 3 (52729) Diagnoses Abnormal uterine bleeding (AUB) N93.9 Calcification of ovary N83.8
[2022-11-28 11:43] VITALS: BP 100/64; BMI 27.3
== END 2022-11-28 12:06 | disposition home or self-care (01) ==
LOC: HO.HWS 11:31
PROVIDERS: PCP Internal Medicine; Visit Provider Obstetrics & Gynecology
DX: N93.9 Abnormal uterine and vaginal bleeding, unspecified (principal); N83.8 Other noninflammatory disorders of ovary, fallopian tube and broad ligament
CPT/HCPCS: 99213

== ENCOUNTER → 2022-11-28 11:31 | Outpatient (BNVA) | payer OTHER, SELFPAY | PROVIDERS: PCP Internal Medicine; Visit Provider Obstetrics & Gynecology | DX: N93.9 Abnormal uterine and vaginal bleeding, unspecified (principal); N83.8 Other noninflammatory disorders of ovary, fallopian tube and broad ligament | CPT/HCPCS: 99212 ==

== ENCOUNTER 2022-12-05 09:57 | Outpatient (REF) | payer OTHER, SELFPAY ==
--- NOTE | ~2022-12-05 | US_ITS ---
EXAMINATION: US PELVIS LIMITED (BLADDER) CLINICAL INFORMATION: Bladder pain. COMPARISON: CT scan of the abdomen and pelvis dated 04/19/2021. TECHNIQUE: Real-time imaging of the bladder. FINDINGS: BLADDER: Well distended and normal. Bilateral ureteral jets are demonstrated. Prevoid bladder volume is 381 mL. Postvoid bladder volume is 4 mL. US/US bladder IMPRESSION: No significant urinary bladder abnormality.
== END 2022-12-05 09:58 | disposition home or self-care (01) ==
LOC: HO.HMGCX 09:57
PROVIDERS: PCP Internal Medicine; Visit Provider Nurse Practitioner Family
DX: R39.89 Other symptoms and signs involving the genitourinary system (principal)
CPT/HCPCS: 76857

== ENCOUNTER 2022-12-07 10:57 | Outpatient (REF) | payer OTHER, SELFPAY ==
[2022-12-07 17:25] LABS: Urine Cytology See Pathology rpt
== END 2022-12-07 10:58 | disposition home or self-care (01) ==
LOC: HO.LNP 10:57
PROVIDERS: PCP Internal Medicine; Visit Provider Nurse Practitioner Family
DX: R31.29 Other microscopic hematuria (principal); R39.9 Unspecified symptoms and signs involving the genitourinary system
CPT/HCPCS: 81003; 88112; 99212

== ENCOUNTER 2022-12-07 10:57 | Outpatient (AMB) | payer OTHER, SELFPAY ==
--- NOTE | 2022-12-07 10:59 | A.OFFVIS_ITS ---
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 Mckeon. She has a past medical history of anxiety, depression, vertigo, irritable bowel syndrome, and history of abnormal cervical Pap smear underwent LEEP in 2019. She presents to the office today for follow-up of her microscopic hematuria. In discussion with the patient today she reports to be doing and feeling well. She reports following up with her PCP over the last few weeks regarding ongoing urinary issue she had been experiencing. In review of patient's chart it appears bladder ultrasound was ordered and has since been completed. These results were reviewed with the patient today. The bladder is well distended and normal. Bilateral ureteral jets are demonstrated. Pre void bladder volume is approximately 380 mL. Prevoid bladder volume is approximately 5 mL. No significant urinary bladder abnormality noted. Patient reports symptoms have since subsided. She reports she had been experiencing lower pelvic/bladder pressure with urinary urgency and frequency. She reports feeling as if she had a urinary tract infection. In office urinalysis today within normal limits. No leukocytes, nitrites, or microscopic hematuria noted. Discussed at length bladder triggers/irritants. Discussed possible causes for microscopic hematuria. Currently patient denies urinary urgency, urinary frequency, incontinence, nocturia, hematuria, dysuria, foul smelling urine, changes to urinary stream, flank pain, fever, and or chills. She is happy with her current voiding parameters. She otherwise offers no issues or concerns at this time. COUNT INCLUDES [facility] Medical History Anxiety and depression Complex ovarian cyst Constipation COVID-19 virus infection Depression Diarrhea Dyspnea Epigastric abdominal pain Family planning advice Female pelvic pain Hematuria History of abnormal cervical Pap smear Hx LEEP (loop electrosurgical excision procedure), cervix, IBS (irritable bowel syndrome) Microscopic hematuria Myoma Palpitations [id number] syndrome Proctalgia fugax Rectal pain SOB (shortness of breath) Vaginal bleeding Vaginal discharge Vertigo Family History Father Bladder cancer Mother Breast cancer Uterine cancer Diabetes HTN (hypertension) Maternal Grandmother Breast cancer Paternal Uncle Bone cancer Social History Housing: House Alcohol intake: current Alcohol intake frequency: holidays/special occasions only Alcohol type: beer, wine and hard liquor Patient Tobacco Use Status: Never used Tobacco e-Cigarette/Vaping Use: Never Used Second Hand Smoke Exposure: No service: No Current occupational status: employed Sexual orientation: Straight/Heterosexual Gender identity: Female Cognitive needs: No Hearing needs: No Vision needs: No Female Reproductive History Menstrual Age of Menarche: 16 Review of Systems Const Reports as per HPI Eyes Reports no additional complaints ENT Reports no additional complaints Card Reports no additional complaints Resp Reports no additional complaints GI Reports as per HPI Reports as per HPI Musc Reports no additional complaints Neuro Reports no additional complaints Endo Reports no additional complaints Westley/Lymph Reports no additional complaints Aller/Immun Reports no additional complaints Physical Exam Const General: cooperative, healthy appearing, comfortable, no acute distress, well developed, alert and awake Nutritional Appearance: average body habitus Orientation/consciousness: patient oriented x3 Limitations: no limitations HEENT Head: Yes normal to inspection, Yes normocephalic and Yes atraumatic Ears: hearing grossly normal bilaterally Eyes General: appearance normal, both eyes and all related structures Neck Neck: Yes normal visual inspection and Yes trachea midline Chest Chest palpation & inspection: normal inspection of the chest Resp Effort & Inspection: normal respiratory effort and able to speak in complete sentences Cardio Rate: regular rate GI Inspection: Yes normal to inspection General: Yes no CVA tenderness Back/Spine/Pelvis Back: no CVA tenderness Skin General skin exam: no rashes or lesions noted Neuro General: patient oriented x3 Extrem General: Yes normal to inspection Psych Appearance: grossly normal and well kempt Mental Status: mental status grossly normal Speech and movement: Normal speech and movement present and Clear speech present Affect: normal affect Attitude: cooperative Thought process: Normal thought process present Thought content: Normal thought content present Insight: Good insight present (Psych) Judgement: Good judgement present (Psych) Results AMB Urinalysis, Automated UA Leukoctes 0 Tosin/uL Last Edit by [employer] on 12/07/22 11:22 UA Nitrite Last Edit by [employer] on 12/07/22 11:22 UA Urobilinogen 0.2 mg/dL Last Edit by [employer] [facility] [employer] on 12/07/22 11:22 UA Protein 0 mg/dL Last Edit by [employer] on 12/07/22 11:22 UA pH 7.5 Last Edit by [employer] on 12/07/22 11:22 UA Blood 0 Ryan/uL Last Edit by [employer] on 12/07/22 11:22 UA Specific [place] 1.015 Last Edit by [employer] on 12/07/22 11:22 UA Ketone Last Edit by [employer] on 12/07/22 11:22 UA Bilirubin 0 mg/dL Last Edit by [employer] on 12/07/22 11:22 UA Glucose 0 mg/dL Last Edit by [employer] on 12/07/22 11:22 Results Reviewed Results Reviewed: Laboratory Last Values Urine pH (Auto) 7.5 12/07/22 11:01 Specific [place] (Auto) 1.015 12/07/22 11:01 Urine Protein (Auto) 0 mg/dL 12/07/22 11:01 Glucose (UA)(Auto) 0 mg/dL 12/07/22 11:01 Urine Blood (Auto) 0 Ryan/uL 12/07/22 11:01 Urine Bilirubin (Auto) 0 mg/dL 12/07/22 11:01 Urine Urobilinogen (Auto) 0.2 mg/dL 12/07/22 11:01 Leukocyte Esterase (Auto) 0 Tosin/uL 12/07/22 11:01 Date of Service: 12/05/22 EXAMINATION: US PELVIS LIMITED (BLADDER) Real-time imaging of the bladder. FINDINGS: BLADDER: Well distended and normal. Bilateral ureteral jets are demonstrated. Prevoid bladder volume is 381 mL. Postvoid bladder volume is 4 mL. IMPRESSION: No significant urinary bladder abnormality. ? Assessment & Plan Assessment & Plan (1) Lower urinary tract symptoms: Code(s): R39.9 - Unspecified symptoms and signs involving the genitourinary system Plan In office urinalysis results reviewed with the patient today; no microscopic hematuria noted Patient reports lower urinary tract symptoms she had been experiencing have since subsided Discussed at length potential causes for microscopic hematuria Recent bladder ultrasound results reviewed with the patient today; as noted above Discussed at length importance of drinking plenty of water daily. Discussed bladder triggers/irritants. Follow-up in 1 year; if not sooner with any questions, concerns, and or issues. Orders: Orders AMB Urinalysis Automated Today Z13.9 - Encounter for screening, unspecified Patient Instructions: The patient had an opportunity to ask questions regarding the treatment plan. All questions were answered. Physical exam, labs, and imaging were discussed and reviewed in detail. As well as risks, benefits, and discussion of treatment choices. No major barriers to understanding were identified. The patient expressed understanding and agreement with the above treatment plan. The patient was made aware they should contact our office by phone for worsening of their current condition, the appearance of new symptoms, or with any questions or concerns. Compliance is encouraged with any medications and follow up testing that is ordered. It is a privilege to be allowed the opportunity to participate in? your urological care.? Again, if you have any questions or concerns If you have any questions or concerns please do not hesitate to contact me. The office is [phone]. This note is constructed using voice recognition software. While every effort has been made to ensure accuracy driver/sales workers errors may have been included. Yours sincerely, SULEMA James Coding Level of Care Code Est Pt Level 3 (55674) Diagnoses Lower urinary tract symptoms R39.9
== END 2022-12-07 11:32 | disposition home or self-care (01) ==
PROVIDERS: PCP Internal Medicine; Visit Provider Nurse Practitioner Family
DX: Z13.9 Encounter for screening, unspecified (principal); R39.9 Unspecified symptoms and signs involving the genitourinary system
CPT/HCPCS: 99213

== ENCOUNTER 2023-01-04 09:16 | Outpatient (REF) | payer OTHER, SELFPAY ==
[2023-01-07 03:34] LABS: HPV mRNA E6/E7 rflx Not Detected (Not Detected)
== END 2023-01-04 09:17 | disposition home or self-care (01) ==
LOC: HO.LNP 09:16
PROVIDERS: Visit Provider Obstetrics & Gynecology
DX: Z01.419 Encounter for gynecological examination (general) (routine) without abnormal findings (principal); Z11.51 Encounter for screening for human papillomavirus (HPV)
CPT/HCPCS: 81025; 87624; 88142

== ENCOUNTER 2023-01-04 09:16 | Outpatient (AMB) | payer OTHER, SELFPAY ==
[2023-01-04 09:30] VITALS: BP 114/66; BMI 26.9
--- NOTE | 2023-01-04 09:30 | MHC.OFFVIS ---
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 No complaints. Last Pap/HPV was negative in 12/13 Last Mammogram was BI-RADS 2 in 02/12 PENDING SALE TO [facility] Medical History (Updated 01/04/23 @ 09:53 by Pierce Rossi MD) Diarrhea Proctalgia fugax IBS (irritable bowel syndrome) Hematuria Myoma Rectal pain Vertigo Female pelvic pain [id number] syndrome Dyspnea Palpitations SOB (shortness of breath) Family planning advice Constipation Vaginal discharge Hx LEEP (loop electrosurgical excision procedure), cervix, COVID-19 virus infection Epigastric abdominal pain Anxiety and depression Vaginal bleeding History of abnormal cervical Pap smear Complex ovarian cyst Microscopic hematuria Depression Family History Father Bladder cancer Mother Breast cancer Uterine cancer Diabetes HTN (hypertension) Maternal Grandmother Breast cancer Paternal Uncle Bone cancer Social History Housing: House Alcohol intake: current Alcohol intake frequency: holidays/special occasions only Alcohol type: beer, wine and hard liquor Patient Tobacco Use Status: Never used Tobacco e-Cigarette/Vaping Use: Never Used Second Hand Smoke Exposure: No service: No Current occupational status: employed Sexual orientation: Straight/Heterosexual Gender identity: Female Cognitive needs: No Hearing needs: No Vision needs: No Female Reproductive History Menstrual Age of Menarche: 16 Duration of menses: 3-5 days Date of last menstrual period: 11/24/22 control method: none Total pregnancies: 1 Full term: 1 Number of Living Children: 1 Date of last pap smear: 12/16/21 History of abnormal pap smear: Yes Date of Mammogram: 02/07/22 Review of Systems Const All systems reviewed & are unremarkable except as noted in HPI and below Card Reports as per HPI Resp Reports as per HPI GI Reports as per HPI and Reports no additional complaints Reports as per HPI Physical Exam Vital Signs: Last Vital Signs BP 114/66 01/04/23 09:30 BMI result Body Mass Index 26.9 Const General: cooperative, healthy appearing and comfortable Chest Chest palpation & inspection: normal inspection of the chest and normal palpation of entire chest wall Breast/axilla inspection: normal inspection of the breasts and normal inspection of the axillae Breast/axilla palpation: normal palpation of the breasts, normal palpation of the axillae and no axillary lymphadenopathy Resp Effort & Inspection: normal respiratory effort Auscultation: clear to auscultation bilaterally Percussion: percussion normal Cardio Palpation: normal PMI Rate: regular rate Rhythm: regular rhythm Heart sounds: no murmurs and no rubs Peripheral pulses: Peripheral pulses 2+ throughout GI Inspection: Yes normal to inspection Palpation (GI): Soft to palpation, nontender, no guarding, not rigid and No hepatosplenomegaly present Percussion: Yes normal to percussion Auscultation: normal bowel sounds Rectal Exam - Female: deferred General: Yes bladder normal to palpation External Female Exam: No lesion Speculum Exam - Vagina: normal appearance of the vagina, normal palpation, normal vaginal discharge and not erythematous Speculum Exam - Cervix: normal appearance of the cervix and normal palpation Bimanual exam- vagina & uterus: normal bimanual exam, normal palpation, uterine size normal, bladder normal to palpation, consistency normal and normal palpation Bimanual Exam- Adnexa, other: normal adnexae, no masses and no tenderness Assessment & Plan Assessment & Plan (1) Well woman exam: Comment: History of JUAN LUIS 3 status post LEEP cone with positive margin in 05/14 followed by 6 months colpo biopsy was negative and negative co testing in 12/13 Code(s): Z01.419 - Encounter for gynecological examination (general) (routine) without abnormal findings Plan: Cotesting done. Mammogram ordered for 02/13. Counseled the patient about the recommended dietary allowance of 1000 mg of Calcium & 600 IU of vitamin D. The patient was instructed to perform monthly self-breast exams and to schedule an annual exam in a year; All questions answered and the patient verbalized understanding. Instructed the patient to schedule annual exam in a year Orders: Orders MM screening mammo BI Today Z12.31 - Encounter for screening mammogram for malignant neoplasm of breast Coding Level of Care Code Est Pt Prev Care 40-64y(51746) Diagnoses Well woman exam Z01.419
== END 2023-01-04 09:56 | disposition home or self-care (01) ==
PROVIDERS: Visit Provider Obstetrics & Gynecology
DX: Z01.419 Encounter for gynecological examination (general) (routine) without abnormal findings (principal); Z32.02 Encounter for pregnancy test, result negative
CPT/HCPCS: 99396

== ENCOUNTER 2023-01-13 11:44 | Outpatient (AMB) | payer OTHER, SELFPAY ==
--- NOTE | 2023-01-13 11:47 | MHC.OFFVIS ---
Intake Vital Signs 01/13/23 11:51 Height 5 ft 3 in Weight 149 lb 14.629 oz BMI 26.6 BP 118/72 Intake Visit Reasons: vaginal itch Intake Note: The patient agreed to use of a director of medical review during this encounter. Scribed for RAMESH Knowles by Shira Betancourt director of medical review, on 01/13/2023 at 12:05 am EST. 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 Reports using cold water to reduce swelling which helps. Denies pelvic pain and urinary issues. [facility], LAT[facility] Medical History Diarrhea Proctalgia fugax IBS (irritable bowel syndrome) Hematuria Myoma Rectal pain Vertigo Female pelvic pain [id number] syndrome Dyspnea Palpitations SOB (shortness of breath) Family planning advice Constipation Vaginal discharge Hx LEEP (loop electrosurgical excision procedure), cervix, COVID-19 virus infection Epigastric abdominal pain Anxiety and depression Vaginal bleeding History of abnormal cervical Pap smear Complex ovarian cyst Microscopic hematuria Depression Family History Father Bladder cancer Mother Breast cancer Uterine cancer Diabetes HTN (hypertension) Maternal Grandmother Breast cancer Paternal Uncle Bone cancer Social History Housing: House Alcohol intake: current Alcohol intake frequency: holidays/special occasions only Alcohol type: beer, wine and hard liquor Patient Tobacco Use Status: Never used Tobacco e-Cigarette/Vaping Use: Never Used Second Hand Smoke Exposure: No service: No Current occupational status: employed Sexual orientation: Straight/Heterosexual Gender identity: Female Cognitive needs: No Hearing needs: No Vision needs: No Female Reproductive History Menstrual Age of Menarche: 16 Physical Exam Vital Signs: Last Vital Signs BP 118/72 01/13/23 11:51 BMI result Body Mass Index 26.6 Const General: cooperative, healthy appearing, comfortable, no acute distress, well developed, alert and awake Other: labial minor edema and erythema; medication residual in the vagina General: Yes bladder normal to palpation External Female Exam: normal appearance of the urethra Speculum Exam - Vagina: normal appearance of the vagina and normal palpation Speculum Exam - Cervix: normal appearance of the cervix and normal palpation Bimanual exam- vagina & uterus: normal bimanual exam, normal palpation, bladder normal to palpation and normal palpation Bimanual Exam- Adnexa, other: normal adnexae and no masses Results AMB Test Urine AMB Test Urine Negative Last Edit by Mariana Carey CMA on 01/13/23 12:21 Results Reviewed Results Reviewed: Laboratory Last Values [facility] Negative 01/13/23 12:14 Assessment & Plan Assessment & Plan (1) Vaginal itching: Code(s): N89.8 - Other specified noninflammatory disorders of vagina Plan: Discussed: Diflucan Rx sent to pharmacy. Instructions given. She has OTC topical cream at home, advised she can use this over the weekend and a cool compress if needed prn. BV testing and GC/CT panel done today. Await results and treat accordingly. All of her questions and concerns were addressed to the best of my ability and shared decision making. She is agreeable to plan of care. (2) Vaginal irritation: Code(s): N89.8 - Other specified noninflammatory disorders of vagina Orders: Orders Bacterial Vaginosis Panel Today N89.8 - Other specified noninflammatory disorders of vagina CT NG by PCR Today N89.8 - Other specified noninflammatory disorders of vagina AMB HCG Urine Test Today Z32.02 - Encounter for test, result negative Medications: New fluconazole (Diflucan) 150 mg PO ONCE PRN 1 tab 0RF personal 1 day Coding Level of Care Code Est Pt Level 3 (13048) Diagnoses Vaginal itching N89.8 Vaginal irritation N89.8
[2023-01-13 11:51] VITALS: BP 118/72; BMI 26.6
== END 2023-01-13 13:08 | disposition home or self-care (01) ==
PROVIDERS: PCP Internal Medicine; Visit Provider Advanced Practice Midwife
DX: Z32.02 Encounter for pregnancy test, result negative (principal); N89.8 Other specified noninflammatory disorders of vagina
CPT/HCPCS: 99213

== ENCOUNTER 2023-01-13 11:44 | Outpatient (REF) | payer OTHER, SELFPAY ==
[2023-01-13 17:20] LABS: CT PCR NOT DETECTED (Not Detect.); NG PCR NOT DETECTED (Not Detect.)
[2023-01-15 11:21] LABS: BV Int Neg Control Negative (Negative); BV Int Pos Control Positive (Positive)
== END 2023-01-13 11:45 | disposition home or self-care (01) ==
LOC: HO.LNP 11:44
PROVIDERS: PCP Internal Medicine; Visit Provider Advanced Practice Midwife
DX: N89.8 Other specified noninflammatory disorders of vagina (principal); Z32.02 Encounter for pregnancy test, result negative
CPT/HCPCS: 0353U; 81025; 87480; 87510; 87660; 99212

== ENCOUNTER 2023-02-14 13:03 | Outpatient (AMB) | payer OTHER, SELFPAY ==
[2023-02-14 13:06] VITALS: BP 116/72; BMI 27.6
--- NOTE | 2023-02-14 13:06 | A.OFFVIS_ITS ---
Intake Vital Signs 02/14/23 13:06 Height 5 ft 3 in Weight 156 lb BMI 27.6 BP 116/72 Intake Visit Reasons: MISSED PERIODS Intake Note: no period since November has done multiple HCG test at home and all are negative. Investigative Reporter Required: No Information Interpreted: non-clinical & clinical Senior Quality Analyst: Senior Quality Analyst Present (Aidyn) Allergies levofloxacin [From Levaquin] Adverse Reaction (Mild, Verified 02/14/23 13:11) dizziness metronidazole [From Flagyl] Adverse Reaction (Mild, Verified 02/14/23 13:11) dizziness Is last menstrual period known: Yes Last menstrual period: 01/26/23 Post menopausal: No HPI MISSED PERIODS HPI Details Patient is here because she has missed her period since November 26. She has had multiple visits both with Jenna Agrawal and Dr. Rossi she said that she had a Mirena IUD for 16 years and she regrets it now because she thinks that it messed her up and it was not normal to have medication in their telling her body what to do for all that time. She said that her periods have been irregular and she has had multiple tests and evaluations with Dr. Rossi including endometrial biopsy she also had a LEEP done last year and she said soon after she had the LEEP she was hemorrhaging and was very very close to needing a transfusion and they thought that was the LEEP but it was not. She said that she is had discussions with Dr. Rossi that on questioning have included discussions of using Provera. But she is not interested on anything long-term or in anything long-term but she it would be accepting of using it to bring on one. Now I did tell her that there is no guarantee that it will bring on a regular. After that on a cyclic basis but it would be something to observe. She is sexually active and she is not contraceptive thing because she is not planning on getting and she would not continue the if she did. She said she did not think she could get if she is not getting menses regularly. I did discuss and reviewed the signs and symptoms of fertile mucus and what she should watch for between cycles of her cycles to return to normal. She is not interested in any long-term use of any hormonal method. She says in general she has been fatigued but she has been trying to eat better and take care of herself and she has been losing weight because she has been eating better. She also has been getting hot flashes and they have been coming more she wonders why that is and wonders if she is in the wilfred menopausal range I did discuss the range of wilfred menopausal symptoms and that they can last for many years before and after cessation of menses for full year which would be the definition of menopause I told her that I would be happy to order a FSH level as well as a TSH because of her symptoms. I am going to order her a 10 day course of Provera and I discussed what she can expect in terms of how it might make her feel and the heavy menses afterwards and that it would be good for her to plan by looking at her calendar as to when she starts it. She says she has opening a new busy as that opens on March 24 so she does not want to be unavailable to her work then. I did also discuss cyclical use of Provera to regulate menses and she is absolutely not interested in that though I she can continue further discussions with Dr. Rossi who she has been seeing fairly regularly I also recommend that she call us if she does not get a menses is within several days of stopping the Provera. I also discussed that we call it a withdrawal bleed and not a true period. 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 Dyspnea Palpitations SOB (shortness of breath) Family planning advice Constipation Vaginal discharge Hx LEEP (loop electrosurgical excision procedure), cervix, COVID-19 virus infection Epigastric abdominal pain Anxiety and depression Vaginal bleeding History of abnormal cervical Pap smear Complex ovarian cyst Microscopic hematuria Depression Family History Father Bladder cancer Mother Breast cancer Uterine cancer Diabetes HTN (hypertension) Maternal Grandmother Breast cancer Paternal Uncle Bone cancer Social History Housing: House Alcohol intake: current Alcohol intake frequency: holidays/special occasions on ly Alcohol type: beer, wine and hard liquor Patient Tobacco Use Status: Never used Tobacco e-Cigarette/Vaping Use: Never Used Second Hand Smoke Exposure: No service: No Current occupational status: employed Sexual orientation: Straight/Heterosexual Gender identity: Female Cognitive needs: No Hearing needs: No Vision needs: No Female Reproductive History Menstrual Age of Menarche: 16 Duration of menses: 3-5 days Date of last menstrual period: 01/26/23 control method: none Date of last pap smear: 01/05/23 (negative) History of abnormal pap smear: Yes (2020 LGSIL +HPV) Physical Exam Vital Signs: Last Vital Signs BP 116/72 02/14/23 13:06 BMI result Body Mass Index 27.6 Results AMB Test Urine AMB Test Urine Negative Last Edit by GILBERTO Acharya on 02/14/23 13:19 Results Reviewed Results Reviewed: Name: Ese Meade Age/Sex: 42/F Attending: Pierce Rossi MD : 1980 Submitted by: Pierce Rossi MD Copies to: MR #: [id number] Status: DEP REF Collected: 01/04/23 Location: [facility] Received: 01/05/23 Interpretation Satisfactory for evaluation. No endocervical cells seen. Negative for intraepithelial lesion or malignancy. HPV mRNA E6/E7: NOT DETECTED This assay detects E6/E7 viral messenger RNA (mRNA) from 14 high-risk HPV types (16, 18, 31, 33, 35, 39, 45, 51, 52, 56, 58, 59, 66, 68) HPV testing performed by [facility], [place], [place]. See reference laboratory portion of the EMR for entire report. Clinical Information LMP: 11/24/22 Previous PAP test: 12/16/21, WNL Material Received ThinPrep-Cervical Electronically Signed By: Ct So 01/17/23 1936 The Pap Test is a screening procedure with the inherent possibility of both false negative and false positive results. Results should be interpreted in the context of historic and current clinical findings. Reliability of the Pap Test is enhanced by performing the test on a regular repetitive basis. Patient: Ese Meade Age/Sex: 42/F MR#: [id number] Page 1 of 1 Name: Ese Meade Age/Sex: 42/F Attending: Pierce Rossi MD : 1980 Submitted by: Pierce Rossi MD Copies to: Ben Mckeon MD MR #: [id number] Status: [facility] Collected: 11/18/22 Location: [facility] Received: 11/18/22 Diagnosis Endometrium, curettage: Benign dyssynchronous endometrium with secretory and disordered proliferative glands; no atypia or carcinoma. Comment: Some fragments may be derived from benign polyps. Clinical History Pre-Op Dx: Polyp Post-Op Dx: Mucinous metaplasia, normal endometrial cavity Microscopic Description Microscopic sections reviewed. Material Received E[facility] Gross Description Received in formalin labeled ?EMC? on blood-stained Telfa are multiple soft, congested and hemorrhagic, danielle-pink and red-maroon irregular tissue fragments aggregating 1.8 x 1.2 x 0.35 cm. The specimen is submitted in toto in a single labeled A. CEDS Copies To Ben Mckeon MD [address] [place] [address] Dr. [address] [place] [address] Pierce Rossi MD [address] [place] [address] Dr. [address] [place] [address] NOTE: Some or all of the immunohistochemical tests reported herein may have been developed and their performance characteristics determined by [facility]. They have not been cleared or approved by the U.S. Food and Drug Administration (FDA). However, the FDA has determined that such clearance or approval is not necessary. This laboratory is certified under the Clinical Laboratory Improvement Amendments of 1988 (CLIA) as qualified to perform high complexity clinical Patient: Ese Meade Age/Sex: 42/F MR#: [id number] Page 1 of 2 Surgical Pathology [id number] laboratory testing. Electronically Signed By: Gertrude Sandhu 11/21/22 7722 Patient: Ese Meade Age/Sex: 42/F MR#: [id number] Patient: Ese Meade MR#: [id number] : 1980 Acct:[id number] Age/Sex: 42 / F ADM Date: 10/10/22 Loc: HO.[facility] Attending Dr: Pierce Rossi MD Ordering Physician: Pierce Rossi MD Date of Service: 10/10/22 Procedure(s): US pelvic and transvaginal Accession Number(s): [id number] cc: Pierce Rossi MD~ EXAMINATION: US PELVIS CLINICAL INFORMATION: Abnormal uterine and vaginal bleeding; the last menstrual period was on 10/04/2022. COMPARISON: Pelvic ultrasound dated 07/08/2021. TECHNIQUE: Ultrasound of the pelvis is performed using both transabdominal and transvaginal transducers along with Doppler. Transvaginal imaging is performed due to inadequate visualization transabdominally. FINDINGS: Uterus: The uterus is retroverted and retroflexed. The uterus measures 7.2 x 4.5 x 5.3 cm. There are cervical calcifications, likely a sequela of prior cone biopsy. The double wall endometrial thickness is 0.3 mm. There are small subendometrial cysts. The uterus is smooth in contour and has normal myometrial echogenicity. No visible fibroid. Adnexa: Both ovaries are visualized. There is normal color flow to the adnexa. There is no ovarian torsion. There is no pelvic ascites or fluid collection. Right ovary measures 3.0 x 1.5 x 1.7 cm, volume 3.9 mL. Left ovary measures 4.3 x 1.5 x 2.2 cm, volume 7.7 mL. The left ovary contains a 1.6 x 1.3 x 1.4 cm benign, simple physiologic follicle. There is a 3 mm focal calcifications again identified within the left ovary. US/US pelvic and transvaginal IMPRESSION: 1. There are very small uterine subendometrial cysts, which can be seen in association with adenomyosis. 2. A 1.6 cm benign, physiologic left ovarian follicle is incidentally noted. This requires no imaging follow-up. 3. A 3 mm left ovarian calcification is redemonstrated. This may be idiopathic or may be associated with condition such as a teratoma or endometriosis. Follow-up imaging may be indicated. Dictated By: Cricket Harvey MD Signed By: <Electronically signed by Cricket Harvey MD in OV> 10/13/22 3769 DD/ 4066 TD/TT: [employer] Driver: [employer] Assessment & Plan Assessment & Plan (1) Endometrial polyp: Comment: On EMB pathology with mucinous metaplasia rule out endometrial hyperplasia or neoplasia Code(s): N84.0 - Polyp of corpus uteri (2) Abnormal uterine bleeding (AUB): Comment: Mucinous metaplasia on EMB, pathology negative on D&C pathology Code(s): N93.9 - Abnormal uterine and vaginal bleeding, unspecified (3) Hair loss: Code(s): L65.9 - Nonscarring hair loss, unspecified (4) Amenorrhea, secondary: Code(s): N91.1 - Secondary amenorrhea Plan Patient is here because she has missed her period since November 26. She has had multiple visits both with Jenna Agrawal and Dr. Rossi she said that she had a Mirena IUD for 16 years and she regrets it now because she thinks that it messed her up and it was not normal to have medication in their telling her body what to do for all that time. She said that her periods have been irregular and she has had multiple tests and evaluations with Dr. Rossi including endometrial biopsy she also had a LEEP done last year and she said soon after she had the LEEP she was hemorrhaging and was very very close to needing a transfusion and they thought that was the LEEP but it was not. She said that she is had discussions with Dr. Rossi that on questioning have included discussions of using Provera. But she is not interested on anything long-term or in anything long-term but she it would be accepting of using it to bring on one. Now I did tell her that there is no guarantee that it will bring on a regular. After that on a cyclic basis but it would be something to observe. She is sexually active and she is not contraceptive thing because she is not planning on getting and she would not continue the if she did. She said she did not think she could get if she is not getting menses regularly. I did discuss and reviewed the signs and symptoms of fertile mucus and what she should watch for between cycles of her cycles to return to normal. She is not interested in any long-term use of any hormonal method. She says in general she has been fatigued but she has been trying to eat better and take care of herself and she has been losing weight because she has been eating better. She also has been getting hot flashes and they have been coming more she wonders why that is and wonders if she is in the wilfred menopausal range I did discuss the range of wilfred menopausal symptoms and that they can last for many years before and after cessation of menses for full year which would be the definition of menopause I told her that I would be happy to order a FSH level as well as a TSH because of her symptoms. I am going to order her a 10 day course of Provera and I discussed what she can expect in terms of how it might make her feel and the heavy menses afterwards and that it would be good for her to plan by looking at her calendar as to when she starts it. She says she has opening a new busy as that opens on March 24 so she does not want to be unavailable to her work then. I did also discuss cyclical use of Provera to regulate menses and she is absolutely not interested in that though I she can continue further discussions with Dr. Rossi who she has been seeing fairly regularly I also recommend that she call us if she does not get a menses within several days of stopping the Provera. I also discussed that we call it a withdrawal bleed and not a true period. Orders: Orders AMB HCG Urine Test Today Z32.02 - Encounter for test, result negative Thyroid Stimulating Hormone Today L65.9 - Nonscarring hair loss, unspecified, N84.0 - Polyp of corpus uteri, N91.1 - Secondary amenorrhea, N93.9 - Abnormal uterine and vaginal bleeding, unspecified Follicle Stimulating Hormone Today L65.9 - Nonscarring hair loss, unspecified, N84.0 - Polyp of corpus uteri, N91.1 - Secondary amenorrhea, N93.9 - Abnormal uterine and vaginal bleeding, unspecified Complete Blood Count no Diff Today L65.9 - Nonscarring hair loss, unspecified, N84.0 - Polyp of corpus uteri, N91.1 - Secondary amenorrhea, N93.9 - Abnormal uterine and vaginal bleeding, unspecified Medications: New medroxyprogesterone (Provera) 10 mg PO DAILY 10 tabs 0RF Coding Level of Care Code Est Pt Level 3 (23166) Diagnoses Endometrial polyp N84.0 Abnormal uterine bleeding (AUB) N93.9 Hair loss L65.9 Amenorrhea, secondary N91.1
== END 2023-02-14 14:00 | disposition home or self-care (01) ==
LOC: HO.HWSM 13:03
PROVIDERS: PCP Internal Medicine; Visit Provider Advanced Practice Midwife
DX: N84.0 Polyp of corpus uteri (principal); N93.9 Abnormal uterine and vaginal bleeding, unspecified; L65.9 Nonscarring hair loss, unspecified; N91.1 Secondary amenorrhea
CPT/HCPCS: 99213

== ENCOUNTER 2023-02-14 13:03 | Outpatient (REF) | payer OTHER, SELFPAY ==
[2023-02-14 14:29] LABS: Hemoglobin 13.5 g/dl (12.0-16.0); Mean Corpuscular HGB Conc 34.6 g/dl (31.0-35.0); Mean Corpuscular Hemoglobin 30.4 pg (27.0-33.0); Mean Corpuscular Volume 87.8 fL (80.0-98.0); Mean Platelet Volume 9.4 fL (9.4-12.3); Platelet Count 294 X10*3/uL (160-400); Red Blood Count 4.44 X10*6/uL (4.20-5.50); Red Cell Distribution Width 11.7 % (11.0-16.0); White Blood Count 6.6 X10*3/uL (4.8-10.8)
[2023-02-14 15:21] LABS: Thyroid Stimulating Hormone 1.14 uIU/mL (0.32-4.0)
[2023-02-16 08:38] LABS: Follicle Stimulating Hormone 10.4 mIU/mL
== END 2023-02-14 13:04 | disposition home or self-care (01) ==
LOC: HO.LAB 13:03
PROVIDERS: PCP Internal Medicine; Visit Provider Advanced Practice Midwife
DX: N84.0 Polyp of corpus uteri (principal); N93.9 Abnormal uterine and vaginal bleeding, unspecified; L65.9 Nonscarring hair loss, unspecified; N91.1 Secondary amenorrhea
CPT/HCPCS: 36415; 83001; 84443; 85027; 99212

== ENCOUNTER 2023-03-13 14:46 | Outpatient (AMB) | payer OTHER, SELFPAY ==
[2023-03-13 14:51] VITALS: BP 116/70; PULSE 92; O2SAT 98; BMI 27.2
--- NOTE | 2023-03-13 14:51 | MHC.PC.OV ---
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 Room Required: No Accompanied by: Self / Same As Patient Allergies levofloxacin [From Levaquin] Adverse Reaction (Mild, Verified 03/13/23 15:17) dizziness metronidazole [From Flagyl] Adverse Reaction (Mild, Verified 03/13/23 15:17) dizziness Medication List - Last Reconciled 03/13/23 by Rahul Rodriguez PA-C medroxyprogesterone (Provera) 10 mg PO DAILY Tobacco use date assessed: 11/15/22 Dental Screening Dental Screen Date: 03/13/23 Did you have a dental visit in the last 12 months?: Yes Did you have a dental problem in the last 6 months where you did not have access to dental care?: No HPI Cough/ Loss Of Voice HPI Details Patient is a 43-year-old female here today for problem visit. This is the 1st time I am meeting this 43-year-old female. She reports having a cough over the last week and has lost her voice. She denies any sick contacts. Has been using [id number] cough cold medications with only minimal relief. [facility] Medical History Diarrhea Proctalgia fugax IBS (irritable bowel syndrome) Hematuria Myoma Rectal pain Vertigo Female pelvic pain [id number] syndrome Dyspnea Palpitations SOB (shortness of breath) Family planning advice Constipation Vaginal discharge Hx LEEP (loop electrosurgical excision procedure), cervix, COVID-19 virus infection Epigastric abdominal pain Anxiety and depression Vaginal bleeding History of abnormal cervical Pap smear Complex ovarian cyst Microscopic hematuria Depression Family History Father Bladder cancer Mother Breast cancer Uterine cancer Diabetes HTN (hypertension) Maternal Grandmother Breast cancer Paternal Uncle Bone cancer Social History Housing: House Alcohol intake: current Alcohol intake frequency: holidays/special occasions only Alcohol type: beer, wine and hard liquor Patient Tobacco Use Status: Never used Tobacco e-Cigarette/Vaping Use: Never Used Second Hand Smoke Exposure: No service: No Current occupational status: employed Sexual orientation: Straight/Heterosexual Gender identity: Female Cognitive needs: No Hearing needs: No Vision needs: No Female Reproductive History Menstrual Age of Menarche: 16 Questionnaire Thrive Questionnaire Date Thrive assessed: 11/15/22 ANGEL LUIS-7 AMB Questionnaire ANGEL LUIS-7 Date ANGEL LUIS - 7 assessed: 11/15/22 Source: Developed by Drs. Thom Angeles, Ingrid Marquez, Julio Cruz and colleagues, with an educational tawny from [employer]. Review of Systems Const Denies headache(s) Eyes Denies loss of vision ENT Denies vertigo, Denies dizziness, Denies headache(s) and Denies sore throat Card Denies chest pain, Denies leg edema and Denies lightheadedness Resp Reports cough, Denies hemoptysis and Denies wheezing GI Denies abdominal pain, Denies melena, Denies constipation, Denies diarrhea and Denies vomiting Denies urinary frequency, Denies dysuria and Denies urinary urgency Musc Denies arthralgias, Denies joint swelling, Denies numbness and Denies tingling Neuro Denies Abnormal speech present, Denies behavioral changes, Denies vertigo, Denies dizziness, Denies headache(s), Denies loss of vision, Denies memory loss, Denies numbness and Denies tingling Psych Denies anxiety, Denies behavioral changes, Denies depression, Denies memory loss and Denies panic attacks Westley/Lymph Denies easy bleeding and Denies easy bruising Aller/Immun Denies wheezing Physical exam (Primary Care) Vital Signs: Last Vital Signs Pulse 92 03/13/23 14:51 BP 116/70 03/13/23 14:51 Pulse Ox 98 03/13/23 14:51 Oxygen Delivery Method Room Air 03/13/23 14:51 BMI result Body Mass Index 27.2 Tobacco/Smoking Status: Tobacco use Status Tobacco use date assessed 11/15/22 03/13/23 14:54 Patient Tobacco Use Status Never used Tobacco 03/13/23 14:54 e-Cigarette/Vaping Use Never Used 03/13/23 14:54 Thrive Assessment: Date of Thrive Assessment Date Thrive assessed 11/15/22 03/13/23 14:54 Const General: healthy appearing, no acute distress, alert and awake Nutritional Appearance: well nourished Orientation/consciousness: oriented to person, oriented to place and oriented to time HENMT Ears: TM's normal bilaterally General nose exam: Normal nasal mucous membranes and turbinates present Eyes Conjunctivae: conjunctivae normal Sclerae: sclerae normal Pupils: Equal, round and reactive pupils present Neck Other: Hoarseness voice noted Neck: Yes no lymphadenopathy and Yes no JVD Thyroid: Thyroid normal Carotids: no bruits Resp Effort & Inspection: normal respiratory effort and not tachypneic Auscultation: no crackles, no rales, no rhonchi and no wheezes Cardio Rate: regular rate Rhythm: regular rhythm Heart sounds: no murmurs and normal S1 and S2 GI Palpation (GI): Soft to palpation, nontender, no hepatomegaly and no splenomegaly Auscultation: normal bowel sounds Skin General skin exam: no rashes or lesions noted and dry skin Neuro General: oriented to person, oriented to place and oriented to time Cranial nerves: Yes Equal, round and reactive pupils present Speech: No Abnormal speech present Gait exam (Neuro): Normal gait present Motor exam (neuro): no tremor noted Extrem Right upper extremity: full ROM Left upper extremity: full ROM Right lower extremity: full ROM; no edema Left lower extremity: full ROM; no edema Psych Mental Status: mental status grossly normal Speech and movement: Normal speech and movement present Affect: normal affect Attitude: cooperative Thought process: Normal thought process present Assessment and Plan Assessment & Plan (1) Upper respiratory infection: Code(s): J06.9 - Acute upper respiratory infection, unspecified Qualifiers: URI type: acute laryngitis Qualified Code(s): J04.0 - Acute laryngitis Plan: Patient's signs and symptoms most consistent with a viral etiology. Advised on conservative treatment and patient agrees and understands. Coding Level of Care Code Est Pt Level 3 (92314) Diagnoses Acute laryngitis J04.0 URI type: acute laryngitis
== END 2023-03-13 16:01 | disposition home or self-care (01) ==
PROVIDERS: PCP Internal Medicine; Visit Provider Physician Assistant
DX: J04.0 Acute laryngitis (principal)
CPT/HCPCS: 99213

== ENCOUNTER 2023-05-19 09:16 | Outpatient (REF) | payer OTHER, SELFPAY ==
[2023-05-19 09:31] LABS: MANUAL DIFF FLAG NO
[2023-05-19 09:36] LABS: Basophils Percent Auto 0.2 % (0-2); Eosinophils Absolute Auto 0.1 X10*3/uL (0.0-0.4); Eosinophils Percent Auto 2.1 % (0-4); Hematocrit 38.9 % (37.0-47.0); Hemoglobin 13.6 g/dl (12.0-16.0); Imm Gran Abs Auto 0.01 X10*3/uL (0.00-0.03); Imm Gran Pct Auto 0.2 % (0.0-0.4); Lymphocytes Absolute Auto 1.8 X10*3/uL (1.2-4.9); Mean Corpuscular Volume 85.9 fL (80.0-98.0); Mean Platelet Volume 9.2 fL (9.4-12.3); Monocytes Absolute Auto 0.3 X10*3/uL (0.1-1.2); Monocytes Percent Auto 5.4 % (2-11); Neutrophils Absolute Auto 3.4 x10*3/uL (2.0-8.3); Neutrophils Percent Auto 60.1 % (45-73); Platelet Count 258 X10*3/uL (160-400); Red Blood Count 4.53 X10*6/uL (4.20-5.50); Red Cell Distribution Width 11.5 % (11.0-16.0); White Blood Count 5.7 X10*3/uL (4.8-10.8)
[2023-05-19 10:30] LABS: Alanine Aminotransferase 21 U/L (0-31); Albumin Level 4.4 g/dL (3.5-5.0); Alkaline Phosphatase 55 U/L (39-117); Anion Gap 11 (12-20); Aspartate Amino Transferase 23 U/L (5-31); Bilirubin Total 0.9 mg/dL (0.0-1.0); Blood Urea Nitrogen 17 mg/dL (9-16); Calcium 9.3 mg/dL (8.4-10.2); Carbon Dioxide 27 mmol/L (22-29); Chloride 106 mmol/L (96-108); Cholesterol 202 mg/dL (<200); Estimated Glomerular Filt Rate > 60; Glucose Random 87 mg/dL (60-115); HDL Cholesterol 50 mg/dL (>40); LDL Cholesterol Calculated 140 mg/dL (<100); Potassium 4.1 mmol/L (3.3-5.1); Sodium 140 mmol/L (135-145); Total Protein 7.6 g/dL (6.5-8.0); Triglycerides 63 mg/dL (<150)
[2023-05-19 10:35] LABS: Free T4 (Free Thyroxine) 0.88 ng/dL (0.71-1.85); Thyroid Stimulating Hormone 1.46 uIU/mL (0.32-4.0); Vitamin D 25-OH Total 26.9 ng/mL (>30)
[2023-05-19 10:44] LABS: Folate 11.2 ng/mL (> or = 4.0); Vitamin B12 488 pg/mL (200-900)
== END 2023-05-19 09:17 | disposition home or self-care (01) ==
LOC: HO.LAB 09:16
PROVIDERS: PCP Internal Medicine; Visit Provider Internal Medicine
DX: K21.9 Gastro-esophageal reflux disease without esophagitis (principal); E78.00 Pure hypercholesterolemia, unspecified
CPT/HCPCS: 36415; 80053; 80061; 82306; 82607; 82746; 84439; 84443; 85025

== ENCOUNTER 2023-06-05 12:49 | Outpatient (REF) | payer OTHER, SELFPAY ==
--- NOTE | ~2023-06-05 | US_ITS ---
EXAMINATION: US PELVIS CLINICAL INFORMATION: Calcification of left ovary LMP: November 2022 COMPARISON: Pelvic ultrasound 10/10/2022 TECHNIQUE: Ultrasound of the pelvis is performed using both transabdominal and transvaginal transducers along with Doppler. Transvaginal imaging is performed due to inadequate visualization transabdominally. FINDINGS: Uterus: The uterus is anteverted and measures 8.6 x 4.2 x 5.4 cm. No focal fibroid The endometrial thickness is 0.96 cm. There are cervical calcifications, likely a sequela of prior code biopsy. Adnexa: Both ovaries are visualized. There is normal color flow to the adnexa. There is no ovarian torsion. Right ovary measures 2.5 x 1.6 x 1.2 cm. Volume 2.6 mL. Left ovary measures 4.4 x 2.1 x 2.3 cm. Volume 10.9 mL. 0.3 x 0.2 x 0.3 cm calcification is again identified within the left ovary. There is a small amount of free fluid within the cul-de-sac and adjacent to the right ovary. US/US pelvic and transvaginal IMPRESSION: No significant change in 0.3 cm calcification in the left ovary.
== END 2023-06-05 12:50 | disposition home or self-care (01) ==
LOC: HO.HMGCX 12:49
PROVIDERS: PCP Internal Medicine; Visit Provider Obstetrics & Gynecology
DX: N83.8 Other noninflammatory disorders of ovary, fallopian tube and broad ligament (principal)
CPT/HCPCS: 76830; 76856

== ENCOUNTER 2023-06-16 10:52 | Outpatient (AMB) | payer OTHER, SELFPAY ==
[2023-06-16 10:53] VITALS: BP 98/70; PULSE 70; O2SAT 100; BMI 28.0
--- NOTE | 2023-06-16 10:53 | MHC.PC.OV ---
Vital Signs 06/16/23 10:53 06/16/23 11:39 Height 5 ft 3 in Weight 158 lb 0.2 oz BMI 28.0 BP 98/70 110/70 Blood Pressure Location Lt brachial Lt brachial Position Sitting Sitting Pulse 70 Pulse Source Pulse Oximeter Pulse Oximetry (%) 100 Oxygen Delivery Method Room Air Intake Visit Reasons: physical Intake Note: Patient is here today for a physical. 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 Required: No Allergies levofloxacin [From Levaquin] Adverse Reaction (Mild, Verified 06/16/23 10:54) dizziness metronidazole [From Flagyl] Adverse Reaction (Mild, Verified 06/16/23 10:54) dizziness Tobacco use date assessed: 06/16/23 Dental Screening Dental Screen Date: 06/16/23 Did you have a dental visit in the last 12 months?: Yes Did you have a dental problem in the last 6 months where you did not have access to dental care?: No Was dental information given to patient?: Patient has dentist HPI physical HPI Details [age] Year old overweight female with a history of JUAN LUIS 3 anemia GERD coming in for physical exam last seen in October 2022. Patient continues to follow-up with gynecology and is due for mammogram. Review of the notes was seen by the nurse practitioner in February for cough treated upper respiratory tract infection. 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 Dyspnea Palpitations SOB (shortness of breath) Family planning advice Constipation Vaginal discharge Hx LEEP (loop electrosurgical excision procedure), cervix, COVID-19 virus infection Epigastric abdominal pain Anxiety and depression Vaginal bleeding History of abnormal cervical Pap smear Complex ovarian cyst Microscopic hematuria Depression Family History Father Bladder cancer Mother Breast cancer Uterine cancer Diabetes HTN (hypertension) Maternal Grandmother Breast cancer Paternal Uncle Bone cancer Social History (Updated 06/16/23 @ 11:43 by Ben Mckeon MD) Housing: House Alcohol intake: current Alcohol intake frequency: holidays/special occasions only Alcohol type: beer, wine and hard liquor Comment: 1 a week 4 drinks Patient Tobacco Use Status: Never used Tobacco e-Cigarette/Vaping Use: Never Used Second Hand Smoke Exposure: No service: No Current occupational status: employed Sexual orientation: Straight/Heterosexual Gender identity: Female Cognitive needs: No Hearing needs: No Vision needs: No Female Reproductive History Menstrual Age of Menarche: 16 Questionnaire PHQ-9 Over the last 2 weeks, how often have you been bothered by any of the following problems? 1. Little interest or pleasure in doing things: not at all 2. Feeling down, depressed, or hopeless: not at all 3. Trouble falling or staying asleep, or sleeping too much: not at all 4. Feeling tired or having little energy: not at all 5. Poor appetite or overeating: not at all 6. Feeling bad about yourself - or that you are a failure or have let yourself or your family down: not at all 7. Trouble concentrating on things, such as reading the newspaper or watching television: not at all 8. Moving or speaking so slowly that other people could have noticed. Or the opposite - being so fidgety or restless that you have been moving around a lot more than usual: not at all 9. Thoughts that you would be better off or of hurting yourself in some way: not at all Total score: 0 Depression Screening Interpretation: Negative Depression Screening Done: Yes Source: Developed by Drs. Thom Angeles, Ingrid Marquez, Julio Cruz and colleagues, with an educational tawny from [employer]. Thrive Questionnaire Date Thrive assessed: 06/16/23 I am a: Patient What is your living situation today?: I have a steady place to live Within the past 12 months, did the food you bought not last and you didn't have the money to get more?: Never true Within the past 12 months, did you worry whether your food would run out before you got money to buy more?: Never true Do you have trouble paying for medicines?: No Do you have trouble getting transportation to medical appointments?: No Do you have trouble paying your heating and electricity bill?: No Do you have trouble taking care of your child, family member or friend?: No Do you have trouble with day-to-day activities such as bathing, preparing meals, shopping, managing finances, etc.?: No Are you currently unemployed and looking for a job?: No Are you interested in more education?: No Please select the resources that you would like help with: None THRIVE Score: 0 AUDIT C Alcohol Use Questionnaire (AUDIT-C) 1. How often do you have a drink containing alcohol?: 2-3 times a week 2. How many drinks containing alcohol do you have on a typical day when you are drinking?: 3 or 4 3. How often do you have six or more drinks on one occasion?: Never Total Score: 4 ANGEL LUIS-7 AMB Questionnaire ANGEL LUIS-7 Date ANGEL LUIS - 7 assessed: 06/16/23 Feeling nervous, anxious, or on edge: 0 = Not at all Not being able to stop or control worryin = Not at all Worrying too much about different things: 0 = Not at all Trouble relaxin = Not at all Being so restless that it is hard to sit still: 0 = Not at all Becoming easily annoyed or irritable: 0 = Not at all Feeling afraid as if something awful might happen: 0 = Not at all Total ANGEL LUIS-7 score (0-4 normal; 5-9 mild; 10-14 moderate; 15-21 severe): 0 Source: Developed by Drs. Thom Angeles, Ingrdi Marquez, Julio Cruz and colleagues, with an educational tawny from [employer]. Review of Systems Const Denies poor appetite and Denies weakness Eyes Denies no additional complaints ENT Reports Normal hearing present, Denies dizziness, Denies nasal congestion, Denies tinnitus and Denies sore throat Card Denies chest pain, Denies syncope, Denies rapid heart rate and Denies dyspnea Resp Denies cough and Denies dyspnea GI Denies change in stool character, Reports constipation, Denies diarrhea, Denies nausea and Denies vomiting Denies urinary frequency, Denies difficulty voiding and Denies dysuria Neuro Reports Normal hearing present, Denies confusion, Denies dizziness, Denies syncope and Denies weakness Psych Denies confusion Physical exam (Primary Care) Vital Signs: Last Vital Signs Pulse 70 06/16/23 10:53 BP 110/70 06/16/23 11:39 Pulse Ox 100 06/16/23 10:53 Oxygen Delivery Method Room Air 06/16/23 10:53 BMI result Body Mass Index 28.0 Tobacco/Smoking Status: Tobacco use Status Tobacco use date assessed 06/16/23 06/16/23 10:55 Patient Tobacco Use Status Never used Tobacco 06/16/23 11:43 e-Cigarette/Vaping Use Never Used 06/16/23 11:43 PHQ-9: PHQ-9 Score PHQ-9: Total score 0 06/16/23 11:39 Depression Screening Interpretation: Negative Thrive Assessment: Date of Thrive Assessment Date Thrive assessed 06/16/23 06/16/23 10:55 Const General: alert and awake; No confusion Orientation/consciousness: No confusion HENMT Head: Yes normocephalic Ears: external ears normal and TM's normal bilaterally Face and sinus: Yes normal facial exam Mouth: moist mucous membranes Throat: Yes tonsils normal Eyes Conjunctivae: conjunctivae normal Pupils: Equal, round and reactive pupils present and Pupil accommodation reflex normal Direct Ophthalmoscopy: normal light reflex Neck Neck: No lymphadenopathy Thyroid: Thyroid normal Chest Chest palpation & inspection: normal inspection of the chest Resp Effort & Inspection: normal respiratory effort and no audible wheezes Auscultation: clear to auscultation bilaterally, no crackles, no wheezes and lung sounds not diminished Cardio Rate: regular rate Rhythm: regular rhythm Peripheral pulses: radial pulses present and dorsalis pedis present GI Palpation (GI): no masses Auscultation: normal bowel sounds and normoactive bowel sounds Rectal Exam - Female: deferred Skin General skin exam: no rashes or lesions noted Rashes: no rashes Neuro General: deep tendon reflexes 2+ bilaterally and No confusion Cranial nerves: Yes Equal, round and reactive pupils present, Yes Midline tongue present, Yes Normal hearing present and Yes Ability to bilaterally elevate shoulders present Cognition (Neuro): normal cognition Gait exam (Neuro): Normal gait present Motor exam (neuro): 5/5 motor strength present throughout Deep tendon reflexes (DTR's): Right brachioradialis reflex intensity grade: 2+, Left brachioradialis reflex intensity grade: 2+, Right patellar reflex intensity grade: 2+ and Left patellar reflex intensity grade: 2+ Extrem General: No edema Assessment and Plan Assessment & Plan (1) Annual physical exam: Code(s): Z00.00 - Encounter for general adult medical examination without abnormal findings (2) Hypercholesterolemia: Code(s): E78.00 - Pure hypercholesterolemia, unspecified Plan: Avoid fried foods, chicken skin, eggs, butter margarine, pastries and meat. Be it pork or beef they have a lot of cholesterol LDL goal less than 130 and triglyceride of less than 150 (3) Vitamin D deficiency: Code(s): E55.9 - Vitamin D deficiency, unspecified Plan: Vitamin-D 4933-0296 units once a day (4) Breast cancer screening by mammogram: Code(s): Z12. - Encounter for screening mammogram for malignant neoplasm of breast Plan: reminde about mammo Orders: Orders MM tomosynthesis screening BI Today Z12. - Encounter for screening mammogram for malignant neoplasm of breast Coding Level of Care Code Est Pt Prev Care 40-64y(69978) Diagnoses Annual physical exam Z00.00 Hypercholesterolemia E78.00 Vitamin D deficiency E55.9 Breast cancer screening by mammogram Z04.23
[2023-06-16 11:39] VITALS: BP 110/70
== END 2023-06-16 11:59 | disposition home or self-care (01) ==
PROVIDERS: Visit Provider Internal Medicine
DX: Z00.00 Encounter for general adult medical examination without abnormal findings (principal); E78.00 Pure hypercholesterolemia, unspecified; E55.9 Vitamin D deficiency, unspecified; Z12.31 Encounter for screening mammogram for malignant neoplasm of breast
CPT/HCPCS: 99396

== ENCOUNTER 2023-06-19 13:07 | Outpatient (AMB) | payer OTHER, SELFPAY ==
[2023-06-19 13:11] VITALS: BP 112/62; BMI 28.0
--- NOTE | 2023-06-19 13:11 | MHC.OFFVIS ---
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 Recent ultrasound showed the following: IMPRESSION: No significant change in 0.3 cm calcification in the left ovary. The patient is complaining of amenorrhea for the last 6 months. EMB done in 11/13 showed mucinous metaplasia which could be associated with hyperplasia and/or malignancy, this was followed by hysteroscopy D&C with no evidence of hyperplasia and/or malignancy, the plan was to repeat office EMB in 6 months [facility] Medical History Upper respiratory infection Amenorrhea, secondary Lower urinary tract symptoms Bladder pain Diarrhea Proctalgia fugax IBS (irritable bowel syndrome) Hematuria Myoma Rectal pain Vertigo Female pelvic pain [id number] syndrome Dyspnea Palpitations SOB (shortness of breath) Family planning advice Constipation Vaginal discharge Hx LEEP (loop electrosurgical excision procedure), cervix, COVID-19 virus infection Epigastric abdominal pain Anxiety and depression Vaginal bleeding History of abnormal cervical Pap smear Complex ovarian cyst Microscopic hematuria Depression Family History Father Bladder cancer Mother Breast cancer Uterine cancer Diabetes HTN (hypertension) Maternal Grandmother Breast cancer Paternal Uncle Bone cancer Social History Housing: House Alcohol intake: current Alcohol intake frequency: holidays/special occasions only Alcohol type: beer, wine and hard liquor Comment: 1 a week 4 drinks Patient Tobacco Use Status: Never used Tobacco e-Cigarette/Vaping Use: Never Used Second Hand Smoke Exposure: No service: No Current occupational status: employed Sexual orientation: Straight/Heterosexual Gender identity: Female Cognitive needs: No Hearing needs: No Vision needs: No Female Reproductive History Menstrual Age of Menarche: 16 Date of last menstrual period: 11/24/22 Review of Systems Const All systems reviewed & are unremarkable except as noted in HPI and below Reports as per HPI and Reports no additional complaints GI Reports no additional complaints Reports no additional complaints Physical Exam Vital Signs: Last Vital Signs BP 112/62 06/19/23 13:11 BMI result Body Mass Index 28.0 Results AMB Test Urine AMB Test Urine Negative Last Edit by Carolee Purdy MA on 06/19/23 13:49 Assessment & Plan Assessment & Plan (1) Calcification of ovary: Code(s): N83.8 - Other noninflammatory disorders of ovary, fallopian tube and broad ligament Plan: Discussed with the patient the findings on ultrasound calcification of the ovary that has been stable since 04/13, the differential diagnosis include but not limited to: hemorrhagic cyst or possible endometrioma and other malignant or nonmalignant medical assistant cardiology versus non medical assistant cardiology causes. In addition discussed with the patient the lack of sensitivity and specificity of diagnose in ovarian pathology including pre malignancy and malignancy with pelvic ultrasound. Options of treatment discussed the patient include the following at not limited to: Either surgical resection which provides a definitive diagnosis and exclusion of malignancy. The Risks of surgical resection include potential decreased ovarian reserve after resection and standard surgical risks. The 2nd option discussed with the patient is: Expectant management which preserves ovarian function and avoids surgical risk. The risks of observation include lack of histologic diagnosis, inability to exclude malignancy, and potential for disease progression. The patient decided to proceed with expectant management , will repeat ultrasound in 6 months. Instructions given the patient to schedule a six-month ultrasound follow-up appointment. (2) Amenorrhea: Comment: With history of mucinous metaplasia in 11/13 Code(s): N91.2 - Amenorrhea, unspecified Plan: UPT done in the office was negative. Discussed with the patient the possible causes of amenorrhea including but not limited to anovulation, thyroid and prolactin disorders, , end organ problems (uterine synechiae), medication side effects and others. The workup includes to start with UPT if negative this will be followed by a progesterone withdrawal test x 5 days if + bleeding this will be followed by TSH, PRL if negative then the diagnosis is anovulation. if no bleeding occurs will treat with Premarin x 21 days followed by Provera if no bleeding occurs will rule out Premature ovarian failure with FSH/LH Since the patient has mucinous metaplasia on EMB in 11/13 followed by negative pathology on endometrial scrapings, instructions given the patient to schedule repeat EMB in 2 weeks Orders: Orders AMB HCG Urine Test Today Z32.02 - Encounter for test, result negative US pelvic and transvaginal 6 Months N83.8 - Other noninflammatory disorders of ovary, fallopian tube and broad ligament Medications: New progesterone micronized (Prometrium) Take the pill 1 tablet a day for 5 days 200 mg PO BEDTIME 5 caps 0RF 5 days Coding Level of Care Code Est Pt Level 3 (81438) Diagnoses Calcification of ovary N83.8 Amenorrhea N91.2
== END 2023-06-19 13:49 | disposition home or self-care (01) ==
LOC: HO.HWS 13:07
PROVIDERS: PCP Internal Medicine; Visit Provider Obstetrics & Gynecology
DX: N83.8 Other noninflammatory disorders of ovary, fallopian tube and broad ligament (principal); N91.2 Amenorrhea, unspecified; Z32.02 Encounter for pregnancy test, result negative
CPT/HCPCS: 99213

== ENCOUNTER → 2023-06-19 13:07 | Outpatient (BNVA) | payer OTHER, SELFPAY | PROVIDERS: PCP Internal Medicine; Visit Provider Obstetrics & Gynecology | DX: N83.8 Other noninflammatory disorders of ovary, fallopian tube and broad ligament (principal); N91.2 Amenorrhea, unspecified | CPT/HCPCS: 81025; 99212 ==

== ENCOUNTER 2023-07-03 09:50 | Outpatient (REF) | payer OTHER, SELFPAY ==
--- NOTE | ~2023-07-03 | MM_ITS ---
EXAMINATION: MM SCREENING DIGITAL BREAST TOMOSYNTHESIS, BILATERAL CLINICAL INFORMATION: Screening. Asymptomatic. COMPARISON: Mammography: This study is compared with prior exams dating back to 2019. TECHNIQUE: Digital breast tomosynthesis is performed in both the craniocaudal and mediolateral oblique views along with computer-aided detection (CAD). Synthesized 2D images are generated from the tomosynthesis. FINDINGS: The breasts are heterogeneously dense, which may obscure small masses (ACR BI-RADS breast composition Category c). There are 2 focal asymmetries of the upper inner quadrant of the left breast and an asymmetry in the lateral aspect of the left breast. These warrant additional mammographic and targeted sonographic imaging. In the right breast, there are no significant masses, abnormal calcifications, or other abnormalities. MM/MM tomosynthesis screening BI IMPRESSION: 2 focal asymmetries in one asymmetry on the left breast warrants additional mammographic and targeted sonographic imaging. No mammographic signs of malignancy right breast. ASSESSMENT: BI-RADS BI-RADS 0 - Incomplete: Needs additional Imaging. RECOMMENDATION: 1. Additional views of the left breast 2. Targeted ultrasound if warranted after review of the additional views. 3. Radiology department staff will contact the patient for additional imaging. Additional Imaging required This examination should not preclude the clinical evaluation of a suspicious palpable abnormality. This patient's information was entered into a reminder system with a target due date for their next mammogram.
== END 2023-07-03 09:51 | disposition home or self-care (01) ==
LOC: HO.MAMMO 09:50
PROVIDERS: PCP Internal Medicine; Visit Provider Internal Medicine
DX: N93.9 Abnormal uterine and vaginal bleeding, unspecified (principal); Z12.31 Encounter for screening mammogram for malignant neoplasm of breast
CPT/HCPCS: 58100; 77063; 77067; 81025

== ENCOUNTER → 2023-07-03 10:00 | Outpatient (BNV) | payer OTHER, SELFPAY | PROVIDERS: PCP Internal Medicine; Visit Provider Radiology Diagnostic Radiology | DX: Z12.31 Encounter for screening mammogram for malignant neoplasm of breast (principal) | CPT/HCPCS: 77063; 77067 ==

== ENCOUNTER 2023-07-03 12:55 | Outpatient (AMB) | payer OTHER, SELFPAY ==
--- NOTE | 2023-07-03 13:09 | MHC.OFFVIS ---
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 Present (Mariana MACIAS) Accompanied by: Self / Same As Patient Allergies levofloxacin [From Levaquin] Adverse Reaction (Mild, Verified 07/03/23 13:21) dizziness metronidazole [From Flagyl] Adverse Reaction (Mild, Verified 07/03/23 13:21) dizziness Is last menstrual period known: No HPI HPI Comments History of Present Illness Details Presenting for EMB [facility] Medical History Upper respiratory infection Amenorrhea, secondary Lower urinary tract symptoms Bladder pain Diarrhea Proctalgia fugax IBS (irritable bowel syndrome) Hematuria Myoma Rectal pain Vertigo Female pelvic pain [id number] syndrome Dyspnea Palpitations SOB (shortness of breath) Family planning advice Constipation Vaginal discharge Hx LEEP (loop electrosurgical excision procedure), cervix, COVID-19 virus infection Epigastric abdominal pain Anxiety and depression Vaginal bleeding History of abnormal cervical Pap smear Complex ovarian cyst Microscopic hematuria Depression Family History Father Bladder cancer Mother Breast cancer Uterine cancer Diabetes HTN (hypertension) Maternal Grandmother Breast cancer Paternal Uncle Bone cancer Social History Housing: House Alcohol intake: current Alcohol intake frequency: holidays/special occasions only Alcohol type: beer, wine and hard liquor Comment: 1 a week 4 drinks Patient Tobacco Use Status: Never used Tobacco e-Cigarette/Vaping Use: Never Used Second Hand Smoke Exposure: No service: No Current occupational status: employed Sexual orientation: Straight/Heterosexual Gender identity: Female Cognitive needs: No Hearing needs: No Vision needs: No Female Reproductive History Menstrual Age of Menarche: 16 Review of Systems Const All systems reviewed & are unremarkable except as noted in HPI and below Reports as per HPI and Reports no additional complaints GI Reports no additional complaints Reports no additional complaints Physical Exam Vital Signs: Last Vital Signs BP 116/70 07/03/23 13:10 BMI result Body Mass Index 27.7 Office Procedures Endometrial Biopsy Details: The patient was counseled regarding the indication and benefits of endometrial sampling to rule out endometrial pathology including not limited to endometrial hyperplasia or endometrial cancer and others; The alternatives (Either do nothing vs. hysteroscopy D&C) & the risks were discussed with the patient including but not limited: pain, uterine perforation, bleeding, infection, possible injury to bladder, bowel, ureter, possible need for blood transfusion with all its possible risks. The patient verbalized understanding all questions answered and signed consent. Urine test done in the office was negative The patient was placed into the dorsal lithotomy position; a speculum was inserted in the vagina. Using aseptic technique for the procedure, the cervix was cleansed with Betadine. The anterior lip of the cervix was grasped with a single tooth tenaculum. The uterus was sounded to 7 cm with a 4 mm Pipelle was used. Tissues samples were obtained and placed in formalin, in a patient labeled container and sent to the pathology department. At the end of the procedure, there was minimal bleeding noted The patient tolerated the procedure well and was discharged in good condition with the following instructions: Nothing in the vagina until the bleeding stops. No sex until the bleeding stops, to call if any of the following occurs: fever (>100.4), flu-like symptoms, abdominal pain, heavy bleeding, four smelling vaginal discharge. The patient was instructed to schedule a Follow up appointment in 2 weeks to discuss pathology results of the biopsy and treatment options. This note was generated with a voice recognition program. Some errors may have been overlooked during the review of this note. Sometimes these errors may affect the content or meaning of a given sentence. [id number] Biopsy Results AMB Test Urine AMB Test Urine Negative Last Edit by Mariana Carey CMA on 07/03/23 13:23 Assessment & Plan Assessment & Plan (1) Abnormal uterine bleeding (AUB): Comment: Mucinous metaplasia on EMB, pathology negative on D&C pathology Code(s): N93.9 - Abnormal uterine and vaginal bleeding, unspecified Plan: EMB done, see procedure note Orders: Orders AMB HCG Urine Test Today Z32.02 - Encounter for test, result negative AMB Endometrial Biopsy Today N93.9 - Abnormal uterine and vaginal bleeding, unspecified Coding Level of Care Code Procedure Only Diagnoses Abnormal uterine bleeding (AUB) N93.9 CPT Codes Endometrial Biopsy - CPT: 39633-[id number] Biopsy ([id number])
[2023-07-03 13:10] VITALS: BP 116/70; BMI 27.7
== END 2023-07-03 14:26 | disposition home or self-care (01) ==
LOC: HO.HWS 12:55
PROVIDERS: PCP Internal Medicine; Visit Provider Obstetrics & Gynecology
DX: N93.9 Abnormal uterine and vaginal bleeding, unspecified (principal); Z32.02 Encounter for pregnancy test, result negative
CPT/HCPCS: 58100

== ENCOUNTER 2023-07-03 14:12 | Outpatient (REF) | payer OTHER, SELFPAY | END 2023-07-03 14:13 | disposition home or self-care (01) | LOC: HO.LNP 14:12 | PROVIDERS: Visit Provider Obstetrics & Gynecology | DX: N91.2 Amenorrhea, unspecified (principal) | CPT/HCPCS: 88305 ==

== ENCOUNTER 2023-07-31 13:42 | Outpatient (AMB) | payer OTHER, SELFPAY ==
--- NOTE | 2023-07-31 13:46 | A.OFFVIS_ITS ---
Intake Vital Signs 07/31/23 13:47 Height 5 ft 3 in Weight 156 lb BMI 27.6 BP 96/64 Intake Visit Reasons: EMB Results Allergies levofloxacin [From Levaquin] Adverse Reaction (Mild, Verified 07/31/23 13:47) dizziness metronidazole [From Flagyl] Adverse Reaction (Mild, Verified 07/31/23 13:47) dizziness HPI HPI Comments History of Present Illness Details The patient is presenting for follow-up to discuss the results of her abnormal uterine bleeding workup and options of treatment. The following workup was done.: H&H= 13.6/38.9 TSH, prolactin, hCG, GC and chlamydia were negative. Endometrial biopsy pathology showed dyssynchronous endometrium with secretory and proliferative endometrium with no evidence of hyperplasia and/or malignancy. Co testing was done in 01/14 was negative. Mammogram was BI-RADS 0, additional views scheduled Pelvic ultrasound showed the following: Uterus: The uterus is anteverted and measures 8.6 x 4.2 x 5.4 cm. No focal fibroid The endometrial thickness is 0.96 cm. There are cervical calcifications, likely a sequela of prior code biopsy. Adnexa: Both ovaries are visualized. There is normal color flow to the adnexa. There is no ovarian torsion. Right ovary measures 2.5 x 1.6 x 1.2 cm. Volume 2.6 mL. Left ovary measures 4.4 x 2.1 x 2.3 cm. Volume 10.9 mL. 0.3 x 0.2 x 0.3 cm calcification is again identified within the left ovary. There is a small amount of free fluid within the cul-de-sac and adjacent to the right ovary. 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 Dyspnea Palpitations SOB (shortness of breath) Family planning advice Constipation Vaginal discharge Hx LEEP (loop electrosurgical excision procedure), cervix, COVID-19 virus infection Epigastric abdominal pain Anxiety and depression Vaginal bleeding History of abnormal cervical Pap smear Complex ovarian cyst Microscopic hematuria Depression Family History Father Bladder cancer Mother Breast cancer Uterine cancer Diabetes HTN (hypertension) Maternal Grandmother Breast cancer Paternal Uncle Bone cancer Social History Housing: House Alcohol intake: current Alcohol intake frequency: holidays/special occasions only Alcohol type: beer, wine and hard liquor Comment: 1 a week 4 drinks Patient Tobacco Use Status: Never used Tobacco e-Cigarette/Vaping Use: Never Used Second Hand Smoke Exposure: No service: No Current occupational status: employed Sexual orientation: Straight/Heterosexual Gender identity: Female Cognitive needs: No Hearing needs: No Vision needs: No Female Reproductive History Menstrual Age of Menarche: 16 Review of Systems Const All systems reviewed & are unremarkable except as noted in HPI and below Reports as per HPI and Reports no additional complaints GI Reports no additional complaints Reports no additional complaints Physical Exam Vital Signs: Last Vital Signs BP 96/64 07/31/23 13:47 BMI result Body Mass Index 27.6 Assessment & Plan Assessment & Plan (1) Amenorrhea: Comment: With history of mucinous metaplasia in 11/13 Code(s): N91.2 - Amenorrhea, unspecified Plan: Discussed with the patient the results the workup including EMB was no history of endometrial hyperplasia or malignancy, recommended Prometrium 200 mg p.o. q.d. day 15-24 pending the results of mammogram which was BI-RADS 2 with additional view was scheduled in few weeks, the patient would like to think about get back to me if her menstrual cycles are still irregular will proceed with cyclic Prometrium treatment. All questions answered, the patient verbalized understanding and agreed with the plan. Coding Level of Care Code Est Pt Level 3 (26734) Diagnoses Amenorrhea N91.2
[2023-07-31 13:47] VITALS: BP 96/64; BMI 27.6
== END 2023-07-31 14:10 | disposition home or self-care (01) ==
LOC: HO.HWS 13:42
PROVIDERS: PCP Internal Medicine; Visit Provider Obstetrics & Gynecology
DX: N91.2 Amenorrhea, unspecified (principal)
CPT/HCPCS: 99213

== ENCOUNTER → 2023-07-31 13:42 | Outpatient (BNVA) | payer OTHER, SELFPAY | PROVIDERS: PCP Internal Medicine; Visit Provider Obstetrics & Gynecology | DX: N91.2 Amenorrhea, unspecified (principal) | CPT/HCPCS: 99212 ==

== ENCOUNTER 2023-08-14 13:22 | Outpatient (REF) | payer OTHER, SELFPAY ==
--- NOTE | ~2023-08-14 | US_ITS ---
EXAMINATION: MM DIAGNOSTIC DIGITAL BREAST TOMOSYNTHESIS, LEFT US BREAST LIMITED, LEFT MAMMOGRAPHY: CLINICAL INFORMATION: Diagnostic for evaluation of 2 focal asymmetries in the upper inner quadrant left breast, and 1 view asymmetry in the lateral aspect left breast. COMPARISON: MAMMOGRAPHY: 07/03/2023, 02/07/2022, 03/13/2019, MRI breast 09/09/2015. ULTRASOUND: Left 02/10/2022, 03/20/2019. TECHNIQUE: Digital breast tomosynthesis is performed in the following views: Full-field digital 3-D left mediolateral view, as well as 3-D spot compression left cc views x2, and left MLO view x1. This was followed by targeted left breast ultrasound. FINDINGS: The breasts are heterogeneously dense, which may obscure small masses (ACR BI-RADS breast composition Category c). Diagnostic views demonstrate at least 5 oval circumscribed masses in the upper inner, and upper outer aspect of the left breast, which correlate with the asymmetries as described in the prior report. These appear circumscribed with 70% of the circumference apparent. These will be evaluated by ultrasound. There are otherwise no suspicious masses, suspicious grouped calcifications, or areas of architectural distortion in the left breast. There are no skin or axillary abnormalities. ULTRASOUND: CLINICAL INFORMATION: Evaluate circumscribed masses in the upper inner and upper outer aspect of the left breast. COMPARISON: Left 02/10/2022, and 03/20/2019. TECHNIQUE: Targeted sonographic evaluation was performed using a high frequency linear transducer. Attention was given to the upper inner and upper outer quadrants of the left breast. Selected archived documentation. FINDINGS: LEFT BREAST: -There is a simple cyst in the 10:00 axis, 4 cm from the nipple, measuring 1.1 x 1.2 x 0.5 cm. This correlates with the far medial mass on mammography. -There is a simple cyst in the 11:00 axis of the left breast, 4 cm from the nipple, measuring 1.2 x 0.9 x 1.2 cm, correlating with the slightly less medial mass on mammography in this location. -There are 2 immediately abutting cysts in the 2:00 axis of the left breast, 7 cm from the nipple, the larger measuring 1.2 x 1.5 x 0.5 cm, and the smaller measuring approximately 5 mm in diameter. These correlate with the upper outer most masses seen on mammography. There are no suspicious solid masses, abnormal regions of shadowing, architectural distortion, or edema within the soft tissue planes. US/US breast LT limited mamm only IMPRESSION: There are no findings suspicious for malignancy in the left breast. Circumscribed masses on mammography correlate with simple cysts on left breast ultrasound and are benign. Recommend this patient return to routine annual screening to include both breasts. OVERALL ASSESSMENT: Mammography: BI-RADS 2 - Benign Findings Ultrasound: BI-RADS 2 - Benign Findings RECOMMENDATION: 1 year F/U Results were provided to the patient at time of visit by the technologist. This patient's information was entered into a reminder system with a target due date for their next mammogram.
== END 2023-08-14 13:23 | disposition home or self-care (01) ==
LOC: HO.MAMMO 13:22
PROVIDERS: PCP Internal Medicine; Visit Provider Internal Medicine
DX: N64.89 Other specified disorders of breast (principal)
CPT/HCPCS: 76642; 77061; 77065

== ENCOUNTER → 2023-08-14 13:30 | Outpatient (BNV) | payer OTHER, SELFPAY | PROVIDERS: PCP Internal Medicine; Visit Provider Radiology Diagnostic Radiology | DX: R92.8 Other abnormal and inconclusive findings on diagnostic imaging of breast (principal) | CPT/HCPCS: 76642; 77061; 77065 ==

== ENCOUNTER 2023-11-17 08:10 | Outpatient (AMB) | payer OTHER, SELFPAY ==
--- NOTE | 2023-11-17 08:28 | MHC.OFFVIS ---
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: Groundwater Monitoring Technician Present (Mariana MACIAS) Accompanied by: Self / Same As Patient Allergies levofloxacin [From Levaquin] Adverse Reaction (Mild, Verified 11/17/23 08:30) dizziness metronidazole [From Flagyl] Adverse Reaction (Mild, Verified 11/17/23 08:30) dizziness Is last menstrual period known: Yes Last menstrual period: 10/24/23 HPI Comments Details: Presenting complaining of vulvovaginal irritation and vaginal discharge associated with foul odor, the patient had residual metronidazole vaginal cream she took for 6 days vaginally daily her vaginal odor has resolved and still complaining of vulvovaginal irritation, no additional symptoms PFSH Medical History Upper respiratory infection Amenorrhea, secondary Lower urinary tract symptoms Bladder pain Diarrhea Proctalgia fugax IBS (irritable bowel syndrome) Hematuria Myoma Rectal pain Vertigo Female pelvic pain [id number] syndrome Dyspnea Palpitations SOB (shortness of breath) Family planning advice Constipation Vaginal discharge Hx LEEP (loop electrosurgical excision procedure), cervix, COVID-19 virus infection Epigastric abdominal pain Anxiety and depression Vaginal bleeding History of abnormal cervical Pap smear Complex ovarian cyst Microscopic hematuria Depression Family History Father Bladder cancer Mother Breast cancer Uterine cancer Diabetes HTN (hypertension) Maternal Grandmother Breast cancer Paternal Uncle Bone cancer Social History Housing: House Alcohol intake: current Alcohol intake frequency: holidays/special occasions only Alcohol type: beer, wine and hard liquor Comment: 1 a week 4 drinks Patient Tobacco Use Status: Never used Tobacco e-Cigarette/Vaping Use: Never Used Second Hand Smoke Exposure: No service: No Current occupational status: employed Sexual orientation: Straight/Heterosexual Gender identity: Female Cognitive needs: No Hearing needs: No Vision needs: No Female Reproductive History Menstrual Age of Menarche: 16 Date of last menstrual period: 10/24/23 Review of Systems Const All systems reviewed & are unremarkable except as noted in HPI and below Physical Exam Vital Signs: BMI result Body Mass Index 27.3 General: Yes no CVA tenderness External Female Exam: normal external appearance and normal appearance of the urethra Speculum Exam - Vagina: normal appearance of the vagina, normal palpation, no lesions and no masses Speculum Exam - Cervix: normal appearance of the cervix, normal palpation, no lesions, no masses and nontender Bimanual exam- vagina & uterus: normal bimanual exam, normal palpation, uterine size normal, normal palpation, uterine shape normal, No Cervical tenderness present and non-tender Bimanual Exam- Adnexa, other: normal adnexae Back/Spine/Pelvis Back: no CVA tenderness Assessment & Plan Assessment & Plan (1) Vulvovaginitis: Code(s): N76.0 - Acute vaginitis Category: Medical Plan: GC/CT, Bacterial Vaginosis panel taken, Diflucan 150 mg tabx 1 p.o. was sent to the patient's pharmacy. The patient was instructed to call if symptoms don't improve in 48 hours. The patient instructed was instructed not to use alprazolam with Diflucan, for 2 days after Diflucan intake because of the interaction with alprazolam. All questions answered, the patient verbalized understanding. Medications: New fluconazole 150 mg PO ONCE 1 day 1 tab 0RF Coding Level of Care Code Est Pt Level 3 (52455) Diagnoses Vulvovaginitis N76.0
[2023-11-17 08:30] VITALS: BMI 27.3
== END 2023-11-17 09:10 | disposition home or self-care (01) ==
LOC: HO.HWS 08:10
PROVIDERS: PCP Internal Medicine; Visit Provider Obstetrics & Gynecology
DX: N76.0 Acute vaginitis (principal)
CPT/HCPCS: 99213

== ENCOUNTER 2023-11-17 08:10 | Outpatient (REF) | payer OTHER, SELFPAY ==
[2023-11-17 16:35] LABS: Bacterial Vaginosis PCR NEGATIVE (Negative); Candida Group PCR NOT DETECTED (Not Detect); Candida glab krusei PCR NOT DETECTED (Not Detect); Trichomonas vaginalis PCR NOT DETECTED (Not Detect)
[2023-11-17 17:04] LABS: CT PCR NOT DETECTED (Not Detect.); NG PCR NOT DETECTED (Not Detect.)
== END 2023-11-17 08:11 | disposition home or self-care (01) ==
LOC: HO.LNP 08:10
PROVIDERS: PCP Internal Medicine; Visit Provider Obstetrics & Gynecology
DX: N76.0 Acute vaginitis (principal)
CPT/HCPCS: 0352U; 87491; 87591; 99212

== ENCOUNTER 2023-11-28 15:16 | Outpatient (AMB) | payer OTHER, SELFPAY ==
--- NOTE | 2023-11-28 15:18 | MHC.OFFWIV ---
Intake Vital Signs 11/28/23 15:19 Height 5 ft 3 in Weight 151 lb BMI 26.7 BP 118/66 Blood Pressure Location Rt brachial Position Sitting Pulse 85 Pulse Source Pulse Oximeter Temp 98.4 F Temp Source Oral Intake Visit Reasons: EP ?UTI Intake Note: pt c/o urinary frequency, urgency and discomfort, foul odor . Started this morning Patient Tobacco Use Status: Never used Tobacco Allergies levofloxacin [From Levaquin] Adverse Reaction (Mild, Verified 11/28/23 15:55) dizziness metronidazole [From Flagyl] Adverse Reaction (Mild, Verified 11/28/23 15:55) dizziness Medication List - Last Reconciled 11/28/23 by Gerber Harry MD alprazolam 0.25 mg PO DAILY PRN 30 days Do you need a note to return to daycare/school/sports/work: No HPI EP ?UTI HPI Details Patient presents for a sick visit. Reports symptoms of increased frequency of urination, burning on urination and discomfort in the suprapubic area. Symptoms started in the past few days. No fevers or chills. No nausea or vomiting. [facility] Medical History Upper respiratory infection Amenorrhea, secondary Lower urinary tract symptoms Bladder pain Diarrhea Proctalgia fugax IBS (irritable bowel syndrome) Hematuria Myoma Rectal pain Vertigo Female pelvic pain [id number] syndrome Dyspnea Palpitations SOB (shortness of breath) Family planning advice Constipation Vaginal discharge Hx LEEP (loop electrosurgical excision procedure), cervix, COVID-19 virus infection Epigastric abdominal pain Anxiety and depression Vaginal bleeding History of abnormal cervical Pap smear Complex ovarian cyst Microscopic hematuria Depression Family History Father Bladder cancer Mother Breast cancer Uterine cancer Diabetes HTN (hypertension) Maternal Grandmother Breast cancer Paternal Uncle Bone cancer Social History Housing: House Alcohol intake: current Alcohol intake frequency: holidays/special occasions only Alcohol type: beer, wine and hard liquor Comment: 1 a week 4 drinks Patient Tobacco Use Status: Never used Tobacco e-Cigarette/Vaping Use: Never Used Second Hand Smoke Exposure: No service: No Current occupational status: employed Sexual orientation: Straight/Heterosexual Gender identity: Female Cognitive needs: No Hearing needs: No Vision needs: No Female Reproductive History Menstrual Age of Menarche: 16 Physical Exam Vital Signs: Last Vital Signs Temp 98.4 F 11/28/23 15:19 Pulse 85 11/28/23 15:19 BP 118/66 11/28/23 15:19 BMI result Body Mass Index 26.7 General: Yes bladder normal to inspection and Yes no CVA tenderness Back/Spine/Pelvis Back: no CVA tenderness Results AMB Urinalysis, Automated UA Leukoctes 0 Tosin/uL Last Edit by Byron Jon CMA on 11/28/23 15:36 UA Nitrite Negative Last Edit by Byron Jon CMA on 11/28/23 15:36 UA Urobilinogen 0.2 mg/dL Last Edit by Byron Jon CMA on 11/28/23 15:36 UA Protein 0 mg/dL Last Edit by Byron Jon CMA on 11/28/23 15:36 UA pH 7.0 Last Edit by Byron Jon CMA on 11/28/23 15:36 UA Blood 0 Ryan/uL Last Edit by Byron Jon CMA on 11/28/23 15:36 UA Specific [place] 1.005 Last Edit by Byron Jon CMA on 11/28/23 15:36 UA Ketone Negative Last Edit by Byron Jon CMA on 11/28/23 15:36 UA Bilirubin 0 mg/dL Last Edit by Byron Jon CMA on 11/28/23 15:36 UA Glucose 0 mg/dL Last Edit by Byron Jon CMA on 11/28/23 15:36 Results Reviewed Results Reviewed: Laboratory Last Values Urine pH (Auto) 7.0 11/28/23 15:35 Specific [place] (Auto) 1.005 11/28/23 15:35 Urine Protein (Auto) 0 mg/dL 11/28/23 15:35 Glucose (UA)(Auto) 0 mg/dL 11/28/23 15:35 Urine Ketones (Auto) Negative 11/28/23 15:35 Urine Blood (Auto) 0 Ryan/uL 11/28/23 15:35 Urine Nitrite (Auto) Negative 11/28/23 15:35 Urine Bilirubin (Auto) 0 mg/dL 11/28/23 15:35 Urine Urobilinogen (Auto) 0.2 mg/dL 11/28/23 15:35 Leukocyte Esterase (Auto) 0 Tosin/uL 11/28/23 15:35 Assessment & Plan Assessment & Plan (1) Urinary tract infection: Code(s): N39.0 - Urinary tract infection, site not specified Plan: Take antibiotics and Pyridium as directed. Increase fluid intake. If symptoms of burning persist, new onset of fever or lower back pain, to follow-up at the clinic. Orders: Orders AMB Urinalysis Automated Today Z13.9 - Encounter for screening, unspecified Coding Level of Care Code Est Pt Level 3 (41136) Diagnoses Urinary tract infection N39.0
[2023-11-28 15:19] VITALS: BP 118/66; PULSE 85; TEMP 36.9; BMI 26.7
== END 2023-11-28 16:28 | disposition home or self-care (01) ==
PROVIDERS: PCP Internal Medicine; Visit Provider Internal Medicine
DX: Z13.9 Encounter for screening, unspecified (principal); N39.0 Urinary tract infection, site not specified
CPT/HCPCS: 81003; 99213

== ENCOUNTER 2023-12-01 14:48 | Outpatient (REF) | payer OTHER, SELFPAY ==
[2023-12-01 15:55] LABS: Appearance Urine Cloudy; Color Urine Dark Yellow; Glucose Urine UA Negative (Negative); Leukocyte Esterase Urine Small (1+) (Negative); Nitrite Urine Positive (Negative); PH 5.5 (5.0-9.0); UMIC TRIGGER UACC YES; Urine Blood Moderate (2+) (Negative); Urine Ketones Negative (Negative); Urine Protein Negative (Neg-Trace)
[2023-12-01 16:08] LABS: Bacteria Urine 4+ (None Seen); Hyaline Casts Urine 0-2 /LPF (0-2); RBC Urine 0-2 /HPF (0-2); UACC Culture Trigger YES; WBC Urine 0-5 /HPF (0-5)
== END 2023-12-01 14:49 | disposition home or self-care (01) ==
LOC: HO.LAB 14:48
PROVIDERS: PCP Internal Medicine; Visit Provider Internal Medicine
DX: R30.0 Dysuria (principal)
CPT/HCPCS: 81001; 87086; 87088; 87186

== ENCOUNTER 2023-12-14 11:10 | Outpatient (REF) | payer OTHER, SELFPAY ==
--- NOTE | ~2023-12-14 | US_ITS ---
EXAMINATION: US PELVIS CLINICAL INFORMATION: Noninflammatory disorders of ovary and fallopian tube. COMPARISON: Pelvic ultrasound 06/05/2023. TECHNIQUE: Ultrasound of the pelvis is performed using both transabdominal and transvaginal transducers along with Doppler. Transvaginal imaging is performed due to inadequate visualization transabdominally. FINDINGS: Uterus: fibroid uterus measuring 8.2 x 3.7 x 4.6 cm. There is a 0.8 cm intramural fibroid in the right body. Endometrial stripe measures 5 mm. There are subendometrial cysts which could reflect adenomyosis. Adnexa: The right ovary measures 3.2 mL. The left ovary measures 4.8 mL. Unchanged 4 mm calcification/echogenic reflector in the left ovary. Color Doppler appears normal in both ovaries. No free fluid. US/US pelvic and transvaginal IMPRESSION: Stable 4 mm calcification left ovary. Subendometrial cysts may reflect adenomyosis. Small uterine fibroid. Electronically signed by: Unruly Pryor MD 12/27/2023 03:17 PM EDT
== END 2023-12-14 11:11 | disposition home or self-care (01) ==
LOC: HO.US 11:10
PROVIDERS: PCP Internal Medicine; Visit Provider Obstetrics & Gynecology
DX: N83.8 Other noninflammatory disorders of ovary, fallopian tube and broad ligament (principal)
CPT/HCPCS: 76830; 76856

== ENCOUNTER 2024-01-09 09:28 | Outpatient (AMB) | payer OTHER, SELFPAY ==
--- NOTE | 2024-01-09 09:28 | A.OFFVIS_ITS ---
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 No complaints. Last Pap/HPV was negative in 07/14 Last Mammogram in 08/15 was BI-RADS 2 Last ultrasound done in 12/15 the following: Uterus: fibroid uterus measuring 8.2 x 3.7 x 4.6 cm. There is a 0.8 cm intramural fibroid in the right body. Endometrial stripe measures 5 mm. There are subendometrial cysts which could reflect adenomyosis. Adnexa: The right ovary measures 3.2 mL. The left ovary measures 4.8 mL. Unchanged 4 mm calcification/echogenic reflector in the left ovary. Color Doppler appears normal in both ovaries. No free fluid. 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 Dyspnea Palpitations SOB (shortness of breath) Family planning advice Constipation Vaginal discharge Hx LEEP (loop electrosurgical excision procedure), cervix, COVID-19 virus infection Epigastric abdominal pain Anxiety and depression Vaginal bleeding History of abnormal cervical Pap smear Complex ovarian cyst Microscopic hematuria Depression Family History Father Bladder cancer Mother Breast cancer Uterine cancer Diabetes HTN (hypertension) Maternal Grandmother Breast cancer Paternal Uncle Bone cancer Social History Housing: House Alcohol intake: current Alcohol intake frequency: holidays/special occasions only Alcohol type: beer, wine and hard liquor Comment: 1 a week 4 drinks Patient Tobacco Use Status: Never used Tobacco e-Cigarette/Vaping Use: Never Used Second Hand Smoke Exposure: No service: No Current occupational status: employed Sexual orientation: Straight/Heterosexual Gender identity: Female Cognitive needs: No Hearing needs: No Vision needs: No Female Reproductive History Menstrual Age of Menarche: 16 Date of last pap smear: 01/05/23 Date of Mammogram: 07/03/23 Review of Systems Const All systems reviewed & are unremarkable except as noted in HPI and below Card Reports as per HPI Resp Reports as per HPI GI Reports as per HPI and Reports no additional complaints Reports as per HPI Physical Exam Vital Signs: Last Vital Signs BP 110/74 01/09/24 09:31 BMI result Body Mass Index 26.6 Const General: cooperative, healthy appearing and comfortable Chest Chest palpation & inspection: normal inspection of the chest and normal palpation of entire chest wall Breast/axilla inspection: normal inspection of the breasts and normal inspection of the axillae Breast/axilla palpation: normal palpation of the breasts, normal palpation of the axillae and no axillary lymphadenopathy Resp Effort & Inspection: normal respiratory effort Auscultation: clear to auscultation bilaterally Percussion: percussion normal Cardio Palpation: normal PMI Rate: regular rate Rhythm: regular rhythm Heart sounds: no murmurs and no rubs Peripheral pulses: Peripheral pulses 2+ throughout GI Inspection: Yes normal to inspection Palpation (GI): Soft to palpation, nontender, no guarding, not rigid and No hepatosplenomegaly present Percussion: Yes normal to percussion Auscultation: normal bowel sounds Rectal Exam - Female: deferred General: Yes bladder normal to palpation External Female Exam: No lesion Speculum Exam - Vagina: normal appearance of the vagina, normal palpation, normal vaginal discharge and not erythematous Speculum Exam - Cervix: normal appearance of the cervix and normal palpation Bimanual exam- vagina & uterus: normal bimanual exam, normal palpation, uterine size normal, bladder normal to palpation, consistency normal and normal palpation Bimanual Exam- Adnexa, other: normal adnexae, no masses and no tenderness Results AMB Test Urine AMB Test Urine Negative Last Edit by Mariana Carey CMA on 10:17 AMB Urinalysis Dipstick UR Leukocytes Trace Last Edit by Mariana Carey CMA on 01/09/24 10:20 UR Nitrite Negative Last Edit by Mariana Carey, CHIEF OPERATOR SYNTHESIS on 01/09/24 10:20 UR Urobilinogen Normal Last Edit by Mariana Carey, CHIEF OPERATOR SYNTHESIS on 01/09/24 10:20 UR Protein Trace Last Edit by Marianashalom Chewero, CHIEF OPERATOR SYNTHESIS on 01/09/24 10:20 UR Ph 6.0 Last Edit by Mariana Carey, CHIEF OPERATOR SYNTHESIS on 01/09/24 10:20 UR Blood Trace Last Edit by Mariana Chewero, CHIEF OPERATOR SYNTHESIS on 01/09/24 10:20 UR Specific [place] 1.015 Last Edit by Mariana Carey, CHIEF OPERATOR SYNTHESIS on 01/09/24 10:20 UR Ketone Negative Last Edit by Mariana Carey, CHIEF OPERATOR SYNTHESIS on 01/09/24 10:20 UR Bilirubin Negative Last Edit by Mariana Chewero, CHIEF OPERATOR SYNTHESIS on 01/09/24 10:20 UR Glucose Negative Last Edit by Mariana Carey, CHIEF OPERATOR SYNTHESIS on 01/09/24 10:20 Results Reviewed Results Reviewed: Laboratory Last Values Urine pH (Clinic) 6.0 01/09/24 10:17 Specific [place] (Clinic) 1.015 01/09/24 10:17 Ur Protein (Clinic) Trace 01/09/24 10:17 Ur Ketones (Clinic) Negative 01/09/24 10:17 Urine Blood (Clinic) Trace 01/09/24 10:17 Urine Nitrite Negative 01/09/24 10:17 Urine Bilirubin (Clinic) Negative 01/09/24 10:17 Urobilinogen (Clinic) Normal 01/09/24 10:17 Leukocyte Esterase (Clinic) Trace 01/09/24 10:17 Urine Glucose (Clinic) Negative 01/09/24 10:17 Tst Clinic Negative 01/09/24 10:17 Assessment & Plan Assessment & Plan (1) Calcification of ovary: Code(s): N83.8 - Other noninflammatory disorders of ovary, fallopian tube and broad ligament Category: Medical Plan: Discussed with the patient the finding on ultrasound showing stable calcification of the left ovary since 07/13. All questions answered, the patient verbalized understanding (2) Well woman exam: Comment: History of JUAN LUIS 3 status post LEEP cone with positive margin in 05/14 followed by 6 months colpo biopsy was negative and negative co testing in 12/13 and 01/14 Code(s): Z01.419 - Encounter for gynecological examination (general) (routine) without abnormal findings Category: Medical Plan: Cotesting done since the patient has history of JUAN LIUS 3 status post LEEP with 2- co testing in 12/13 in 01/14. Instructions given the patient to schedule next screening Mammogram in 08/16. Counseled the patient about the recommended dietary allowance of 1000 mg of Calcium & 600 IU of vitamin D. The patient was instructed to perform monthly self-breast exams and to schedule an annual exam in a year; All questions answered and the patient verbalized understanding. Instructed the patient to schedule annual exam in a year (3) Uterine myoma: Code(s): D25.9 - Leiomyoma of uterus, unspecified Category: Medical Plan: Discussed with the patient the findings on pelvic ultrasound & the risk of myosarcoma; discussed with the patient the options of treatment including expectant management versus hysterectomy; the pros and cons, risks benefits of each approach were discussed with the patient including the fact that in cases of myosarcoma, surgical treatment can lead to early diagnosis and positively affects the prognosis; after further discussion, the patient decided to proceed with expectant management. Will repeat pelvic ultrasound periodically. Instructions given to patient to call in case any of the following occurs: pressure symptoms, abnormal uterine bleeding, pelvic pain. All questions a nswered, the patient verbalized understanding and agreed with the plan . (4) Dyspareunia in female: Code(s): N94.10 - Unspecified dyspareunia Category: Medical Plan: Urine dip and test done in the office was negative. GC/CT with BV panel taken. Will check the results and treat accordingly. Orders: Orders AMB HCG Urine Test Today Z32.02 - Encounter for test, result negative PAP + HPV E6/E7 rfx 18/45 Today Z01.419 - Encounter for gynecological examination (general) (routine) without abnormal findings Bacterial Vaginosis Panel Today Z01.419 - Encounter for gynecological examination (general) (routine) without abnormal findings AMB Urinalysis Dipstick Today R10.2 - Pelvic and perineal pain CT NG by PCR Today Z01.419 - Encounter for gynecological examination (general) (routine) without abnormal findings Coding Level of Care Code Est Pt Prev Care 40-64y(20486) Diagnoses Calcification of ovary N83.8 Well woman exam Z.419 Uterine myoma D25.9 Dyspareunia in female N94.10
[2024-01-09 09:31] VITALS: BP 110/74; BMI 26.6
== END 2024-01-09 10:05 | disposition home or self-care (01) ==
LOC: HO.HWS 09:28
PROVIDERS: PCP Internal Medicine; Visit Provider Obstetrics & Gynecology
DX: Z01.419 Encounter for gynecological examination (general) (routine) without abnormal findings (principal); N83.8 Other noninflammatory disorders of ovary, fallopian tube and broad ligament; D25.9 Leiomyoma of uterus, unspecified; N94.10 Unspecified dyspareunia; Z32.02 Encounter for pregnancy test, result negative; R10.2 Pelvic and perineal pain
CPT/HCPCS: 99396

== ENCOUNTER 2024-01-09 09:28 | Outpatient (REF) | payer OTHER, SELFPAY ==
[2024-01-10 04:56] LABS: CT PCR NOT DETECTED (Not Detect.); NG PCR NOT DETECTED (Not Detect.)
[2024-01-10 11:38] LABS: Bacterial Vaginosis PCR NEGATIVE (Negative); Candida Group PCR NOT DETECTED (Not Detect); Candida glab krusei PCR NOT DETECTED (Not Detect); Trichomonas vaginalis PCR NOT DETECTED (Not Detect)
[2024-01-11 17:28] LABS: HPV mRNA E6/E7 Not Detected (Not Detected)
== END 2024-01-09 09:29 | disposition home or self-care (01) ==
LOC: HO.LNP 09:28
PROVIDERS: PCP Internal Medicine; Visit Provider Obstetrics & Gynecology
DX: Z01.419 Encounter for gynecological examination (general) (routine) without abnormal findings (principal); N83.8 Other noninflammatory disorders of ovary, fallopian tube and broad ligament; N94.10 Unspecified dyspareunia; D25.9 Leiomyoma of uterus, unspecified; R10.2 Pelvic and perineal pain
CPT/HCPCS: 0352U; 81002; 81025; 87491; 87591; 87624; 88175; 99396

== ENCOUNTER 2024-04-11 08:48 | Outpatient (AMB) | payer OTHER, SELFPAY ==
--- NOTE | 2024-04-11 08:49 | A.OFFVIS_ITS ---
Intake Visit Reasons: pelvic pain Skip Operator: Skip Operator Present (Alice) Accompanied by: Self / Same As Patient Allergies levofloxacin [From Levaquin] Adverse Reaction (Mild, Verified 04/11/24 08:59) dizziness metronidazole [From Flagyl] Adverse Reaction (Mild, Verified 04/11/24 08:59) dizziness HPI Comments Details: Presenting complaining of pelvic pain bilaterally of few days' duration associated with vaginal discharge, vulvovaginal irritation and foul odor and questionable constipation. No fever or chills no urinary simple . 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 Dyspnea Palpitations SOB (shortness of breath) Family planning advice Constipation Vaginal discharge Hx LEEP (loop electrosurgical excision procedure), cervix, COVID-19 virus infection Epigastric abdominal pain Anxiety and depression Vaginal bleeding History of abnormal cervical Pap smear Complex ovarian cyst Depression Family History Father Bladder cancer Mother Breast cancer Uterine cancer Diabetes HTN (hypertension) Maternal Grandmother Breast cancer Paternal Uncle Bone cancer Social History Housing: House Alcohol intake: current Alcohol intake frequency: holidays/special occasions only Alcohol type: beer, wine and hard liquor Comment: 1 a week 4 drinks Patient Tobacco Use Status: Never used Tobacco e-Cigarette/Vaping Use: Never Used Second Hand Smoke Exposure: No service: No Current occupational status: employed Sexual orientation: Straight/Heterosexual Gender identity: Female Cognitive needs: No Hearing needs: No Vision needs: No Female Reproductive History Menstrual Age of Menarche: 16 Duration of menses: 3-5 days Date of last menstrual period: 04/05/24 Review of Systems Const All systems reviewed & are unremarkable except as noted in HPI and below Physical Exam General: Yes no CVA tenderness External Female Exam: normal external appearance and normal appearance of the urethra Speculum Exam - Vagina: normal appearance of the vagina, normal palpation, no lesions and no masses Speculum Exam - Cervix: normal appearance of the cervix, normal palpation, no lesions, no masses and nontender Bimanual exam- vagina & uterus: normal bimanual exam, normal palpation, uterine size normal, normal palpation, uterine shape normal, No Cervical tenderness present and non-tender Bimanual Exam- Adnexa, other: normal adnexae Back/Spine/Pelvis Back: no CVA tenderness Results AMB Test Urine AMB Test Urine Negative Last Edit by Mariana Carey CMA on 09:08 Results Reviewed Results Reviewed: Laboratory Last Values Tst Clinic Negative 04/11/24 09:07 Assessment & Plan Assessment & Plan (1) Pelvic pain: Code(s): R10.2 - Pelvic and perineal pain Category: Medical Plan: Urine test done in the office was negative. GC and chlamydia taken and pelvic ultrasound ordered. Discussed with the patient the differential diagnosis of pelvic pain including but not limited to adnexal, uterine masses, pelvic infections (PID), GI the (Irritable bowel syndrome, diverticulitis, others), musculoskeletal, myofascial pain abdominal wall , adhesions, endometriosis, psychological and others causes. Will check results and treat accordingly. All questions answered, the patient verbalized understanding. In structed the patient to schedule an ultrasound and a follow-up appointment in 2 weeks. All questions answered, the patient verbalized understanding and agreed with the plan. (2) Microscopic hematuria: Code(s): R31.29 - Other microscopic hematuria Category: Medical Plan: Urine dip showed microscopic hematuria, urine culture sent. Will repeat urine dip in 2 weeks. Discussed with the patient the possible causes of microscopic hematuria including but not limited to: interstitial cystitis, polyps, stones, masses, urethral inflammatory processes and others. If Urine Culture is negative and repeat urine dip in 2 weeks shows persistent microscopic hematuria, will proceed with CT abdomen/pelvis and urology referral. Instructions given the patient to schedule a 2 week urine dip follow-up appointment. All questions answered and the patient verbalized understanding. (3) Vaginitis: Comment: Mixed Code(s): N76.0 - Acute vaginitis Category: Medical Qualifiers: Chronicity: acute Qualified Code(s): N76.0 - Acute vaginitis Plan: GC/CT with BV panel collected will treat with Terazol 0.8% q.h.s. for 3 days with Flagyl 500 mg p.o. b.i.d. for 7 days. Instructions given the patient to call if symptoms not improve within 48 hours Orders: Orders AMB Urinalysis Dipstick Today R31.29 - Other microscopic hematuria, Z32.02 - Encounter for test, result negative CT NG by PCR Today N76.0 - Acute vaginitis, R31.29 - Other microscopic hematuria Urine Culture Today N76.0 - Acute vaginitis, R31.29 - Other microscopic hematuria AMB HCG Urine Test Today R31.29 - Other microscopic hematuria, Z32.02 - Encounter for test, result negative Bacterial Vaginosis Panel Today N76.0 - Acute vaginitis, R31.29 - Other microscopic hematuria Medications: New terconazole 0.8% 1 appful vaginal BEDTIME 3 days 20 grams 0RF metronidazole 500 mg PO BID 7 days 14 tabs 0RF Coding Level of Care Code Est Pt Level 3 (44899) Diagnoses Pelvic pain R10.2 Microscopic hematuria R31.29 Acute vaginitis N76.0 Chronicity: acute
== END 2024-04-11 09:16 | disposition home or self-care (01) ==
LOC: HO.HWS 08:48
PROVIDERS: PCP Internal Medicine; Visit Provider Obstetrics & Gynecology
DX: R10.2 Pelvic and perineal pain (principal); R31.29 Other microscopic hematuria; N76.0 Acute vaginitis; Z32.02 Encounter for pregnancy test, result negative
CPT/HCPCS: 99213

== ENCOUNTER 2024-04-11 08:48 | Outpatient (REF) | payer OTHER, SELFPAY ==
[2024-04-11 16:57] LABS: Bacterial Vaginosis PCR NEGATIVE (Negative); Candida Group PCR NOT DETECTED (Not Detect); Candida glab krusei PCR NOT DETECTED (Not Detect); Trichomonas vaginalis PCR NOT DETECTED (Not Detect)
[2024-04-11 17:29] LABS: CT PCR NOT DETECTED (Not Detect.); NG PCR NOT DETECTED (Not Detect.)
== END 2024-04-11 08:49 | disposition home or self-care (01) ==
LOC: HO.LNP 08:48
PROVIDERS: PCP Internal Medicine; Visit Provider Obstetrics & Gynecology
DX: N76.0 Acute vaginitis (principal); R31.29 Other microscopic hematuria; Z32.02 Encounter for pregnancy test, result negative; R10.2 Pelvic and perineal pain
CPT/HCPCS: 0352U; 81025; 87086; 87491; 87591; 99212

== ENCOUNTER 2024-04-22 13:20 | Outpatient (REF) | payer OTHER, SELFPAY | END 2024-04-22 13:21 | disposition home or self-care (01) | LOC: HO.US 13:20 | PROVIDERS: PCP Internal Medicine; Visit Provider Obstetrics & Gynecology | DX: D25.9 Leiomyoma of uterus, unspecified (principal) | CPT/HCPCS: 76830; 76856 ==

== ENCOUNTER → 2024-04-22 13:21 | Outpatient (BNV) | payer OTHER, SELFPAY | PROVIDERS: PCP Internal Medicine; Visit Provider Radiology Diagnostic Radiology | DX: D25.9 Leiomyoma of uterus, unspecified (principal) | CPT/HCPCS: 76830; 76856 ==

== ENCOUNTER 2024-04-28 04:36 | Emergency (ER) | payer OTHER, SELFPAY ==
--- NOTE | ~2024-04-28 | XR_ITS ---
CLINICAL HISTORY: low back pain 3 views lumbar spine Comparison: None Findings: Normal alignment. No acute fractures or dislocation. No significant degenerative change. IMPRESSION: No acute findings. This document has been electronically signed by: Adiel Myers MD on 04/28/2024 10:46:48
--- NOTE | ~2024-04-28 | XR_ITS ---
CLINICAL HISTORY: cough 2 view chest x-ray Comparison: None Findings: No consolidation or effusion. Normal size heart. No acute fracture. IMPRESSION: 1. No acute findings. This document has been electronically signed by: Adiel Myers MD on 04/28/2024 10:46:56
[2024-04-28 04:53] VITALS: BP 118/85; PULSE 118; RESP 20; TEMP 37.5; O2SAT 98; BMI 27.5
[2024-04-28 05:16] LABS: MANUAL DIFF FLAG NO
[2024-04-28 05:17] LABS: Basophils Percent Auto 0.1 % (0-2); Eosinophils Absolute Auto 0.1 X10*3/uL (0.0-0.4); Eosinophils Percent Auto 1.6 % (0-4); Hematocrit 36.3 % (37.0-47.0); Hemoglobin 12.9 g/dl (12.0-16.0); Imm Gran Abs Auto 0.06 X10*3/uL (0.00-0.03); Imm Gran Pct Auto 0.7 % (0.0-0.4); Lymphocytes Absolute Auto 1.1 X10*3/uL (1.2-4.9); Lymphocytes Percent Auto 11.8 % (20-40); Mean Corpuscular HGB Conc 35.5 g/dl (31.0-35.0); Mean Corpuscular Hemoglobin 30.1 pg (27.0-33.0); Mean Corpuscular Volume 84.8 fL (80.0-98.0); Mean Platelet Volume 8.6 fL (9.4-12.3); Monocytes Absolute Auto 0.5 X10*3/uL (0.1-1.2); Neutrophils Absolute Auto 7.2 x10*3/uL (2.0-8.3); Neutrophils Percent Auto 79.8 % (45-73); Platelet Count 267 X10*3/uL (160-400); Red Blood Count 4.28 X10*6/uL (4.20-5.50); Red Cell Distribution Width 11.6 % (11.0-16.0)
[2024-04-28 05:24] LABS: IDNOW Serial# 58CA691E; Strep A Nucleic Acid Negative (Negative)
[2024-04-28 05:30] LABS: Alanine Aminotransferase 22 U/L (0-31); Alkaline Phosphatase 69 U/L (39-117); Anion Gap 13 (12-20); Aspartate Amino Transferase 24 U/L (5-31); Bilirubin Total 0.3 mg/dL (0.0-1.0); Blood Urea Nitrogen 10 mg/dL (9-16); Calcium 8.5 mg/dL (8.4-10.2); Carbon Dioxide 21 mmol/L (22-29); Chloride 108 mmol/L (96-108); Creatinine Clr Calc Pharmacy 90.6; Estimated Glomerular Filt Rate > 60; Glucose Random 113 mg/dL (60-115); Sodium 138 mmol/L (135-145); Total Protein 7.1 g/dL (6.5-8.0)
[2024-04-28 05:55] LABS: Influenza A PCR NEGATIVE (Negative); Influenza B PCR NEGATIVE (Negative); Resp Syncy Virus RNA Qual PCR NEGATIVE (Negative); SARS COV2 PCR INHOUSE NEGATIVE (Negative)
[2024-04-28] MEDS: Ketorolac Tromethamine 30 MG/ML VIAL IM (10:20)
[2024-04-28] MEDS: Cyclobenzaprine HCl 10 MG TABLET PO (10:20)
--- NOTE | 2024-04-28 10:45 | ED.GENADULT ---
HPI - General Adult General Chief complaint: General Medical Stated complaint: lower back pain , cold symptoms Time Seen by Provider: 04/28/24 09:06 Source: patient, RN notes reviewed and old records reviewed Mode of arrival: ambulatory History of Present Illness ED Provider: Hanny Adames PA-C HPI narrative: 44-year-old female with a past medical history depression, presenting to the ED complaining of right-sided low back pain since last night. Also reports URI symptoms with dry cough, congestion x2 weeks. Denies known back injury, trauma, fall, radiation of pain to lower extremities or to abdomen, dysuria/hematuria, incontinence/retention, abdominal pain, weakness, CP/SOB. Related Data Previous Rx's ?Medication ?Instructions ?Recorded alprazolam 0.25 mg tablet 0.25 mg PO DAILY PRN anxiety 30 11/02/23 days #10 tabs phenazopyridine 200 mg tablet 200 mg PO TID 3 days #9 tabs 11/28/23 (Pyridium) sulfamethoxazole 800 1 tab PO BID 5 days #10 tabs 11/28/23 mg-trimethoprim 160 mg tablet (Bactrim DS) dicyclomine 10 mg capsule 10 mg PO QID #90 caps 12/27/23 metronidazole 500 mg tablet 500 mg PO BID 7 days #14 tabs 04/11/24 terconazole 0.8 % vaginal cream 1 appful vaginal BEDTIME 3 days 04/11/24 #20 grams Allergies Allergy/AdvReac Type Severity Reaction Status Date / Time levofloxacin [From Levaquin] AdvReac Mild dizziness Verified 04/28/24 04:57 metronidazole [From Flagyl] AdvReac Mild dizziness Verified 04/28/24 04:57 Review of Systems Review of Systems: Yes all other systems are reviewed and are negative Constitutional: Constitutional: Reports as per HPI Neurologic: Denies Sensory deficit (Neuro) [facility] Past Medical History Attestation statement: The following information was validated with the patient. 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 Dyspnea Palpitations SOB (shortness of breath) Family planning advice Constipation Vaginal discharge Hx LEEP (loop electrosurgical excision procedure), cervix, COVID-19 virus infection Epigastric abdominal pain Anxiety and depression Vaginal bleeding History of abnormal cervical Pap smear Complex ovarian cyst Depression Family History Family History Father Bladder cancer Mother Breast cancer Uterine cancer Diabetes HTN (hypertension) Maternal Grandmother Breast cancer Paternal Uncle Bone cancer Social History Social History Housing: House Alcohol intake: current Alcohol intake frequency: holidays/special occasions only Alcohol type: beer, wine and hard liquor Comment: 1 a week 4 drinks Patient Tobacco Use Status: Never used Tobacco e-Cigarette/Vaping Use: Never Used Second Hand Smoke Exposure: No Advance Directives: No Advance Directives Information Provided: Yes Do you have a plan to hurt others: No Plan service: No Current occupational status: employed Sexual orientation: Straight/Heterosexual Gender identity: Female Cognitive needs: No Hearing needs: No Vision needs: No Physical Exam ED Vital Signs: Vital Signs - 24 hr 04/28/24 04:53 Temperature 99.5 F Pulse Rate 118 H Respiratory Rate 20 Blood Pressure 118/85 Pulse Oximetry 98 Oxygen Delivery Method Room Air BMI result Body Mass Index 27.5 Const General: cooperative, healthy appearing and no acute distress Orientation/consciousness: patient oriented x3 Limitations: no limitations HENMT Head: Yes normal to inspection and Yes atraumatic Ears: hearing grossly normal bilaterally General nose exam: Normal external nose present Face and sinus: Yes normal facial exam Eyes General: appearance normal, both eyes and all related structures EOM: EOMs intact bilaterally Neck Neck: Yes normal visual inspection and Yes no meningeal signs Resp Effort & Inspection: normal respiratory effort and no respiratory distress Auscultation: clear to auscultation bilaterally Cardio Rate: regular rate Heart sounds: S1 normal heart sound present and S2 normal heart sound present GI Inspection: Yes normal to inspection Palpation (GI): Soft to palpation, nontender, no guarding and not rigid General: Yes no CVA tenderness Back/Spine/Pelvis Other: No midline cervical/thoracic/lumbar spinous tenderness/step-off or deformity. Back pain not reproducible on exam. No rash/erythema or ecchymosis Back: no CVA tenderness Thoracic/Lumbar Spine: straight leg raise positive right Skin Rashes: no rashes Wounds: no wounds Neuro Other: Strength intact throughout. No saddle anesthesia. Sensation intact to light touch. Neurovascular intact distally General: patient oriented x3, gait normal, tone normal, moves all extremities and no meningeal signs Cranial nerves: Yes CN's II-XII intact bilaterally Gait exam (Neuro): Normal gait present Motor exam (neuro): 5/5 motor strength present throughout Sensory Exam: No Sensory deficit (Neuro) Extrem General: Yes normal to inspection Course Course Course Narrative: -1051--labs reassuring. Viral studies negative. Rapid strep negative. -lumbar x-ray unremarkable -chest x-ray unremarkable -1141--UA with RBC/blood, negative > still low suspicion for renal stone Results discussed with patient including worrisome signs and symptoms and strict return precautions, and when to return to the emergency department. They verbalized understanding and feel safe for discharge at this time. Medications Administered Discontinued Medications Generic Name Dose Route Start Last Admin Trade Name Freq PRN Reason Stop Dose Admin Cyclobenzaprine HCl 10 mg 04/28/24 09:35 04/28/24 10:20 Cyclobenzaprine Hcl 10 Mg Tablet PO 04/28/24 09:36 10 mg ONCE ONE Administration Ketorolac Tromethamine 30 mg 04/28/24 09:35 04/28/24 10:20 Ketorolac Tromethamine 30 Mg/Ml Vial IM 04/28/24 09:36 30 mg ONCE ONE Administration Medical Decision Making Medical Decision Making [facility] Narrative: 44-year-old female with a past medical history depression, presenting to the ED complaining of right-sided low back pain since last night. Also reports URI symptoms with dry cough, congestion x2 weeks. On exam tachycardic likely from pain and low-grade fever 99.5, NAD/nontoxic appearing, abdomen soft/nontender, no midline spinous tenderness throughout or red flag symptoms. Back pain not reproducible. Pain elicited on movement. Concern for viral illness vs pneumonia/bronchitis vs MSK pain/spasm. Lower suspicion for renal stone, pyelo, intra-abdominal pathology, cauda equina/cord compression or epidural abscess. Low suspicion for PE or ACS Plan: Labs, UA ordered in triage, x-ray, viral studies, pain control, re-evaluate Please refer to course for remaining clinical decision making, interpretation of labs/imaging results, and discussions with consultants and/or family members. Differential Diagnosis Differential Diagnoses: The differential diagnosis associated with the presentation includes As above Admission/Observation Consideration of admission/observation: Escalation of care including admission/observation considered Lab Data MDM Lab Attestation statement: I reviewed the patient's lab results. 04/28/24 05:09 04/28/24 05:09 Labs: Lab Results 04/28/24 04/28/24 Range/Units 05:09 11:19 WBC 9.0 (4.8-10.8) X10*3/uL RBC 4.28 (4.20-5.50) X10*6/uL Hgb 12.9 (12.0-16.0) g/dl Hct 36.3 L (37.0-47.0) % MCV 84.8 (80.0-98.0) fL MCH 30.1 (27.0-33.0) pg MCHC 35.5 H (31.0-35.0) g/dl RDW 11.6 (11.0-16.0) % Plt Count 267 (160-400) X10*3/uL MPV 8.6 L (9.4-12.3) fL Immature Gran % (Auto) 0.7 H (0.0-0.4) % Neut % (Auto) 79.8 H (45-73) % Lymph % (Auto) 11.8 L (20-40) % [place] % (Auto) 6.0 (2-11) % Eos % (Auto) 1.6 (0-4) % Baso % (Auto) 0.1 (0-2) % Lymph # (Auto) 1.1 L (1.2-4.9) X10*3/uL [place] # (Auto) 0.5 (0.1-1.2) X10*3/uL Eos # (Auto) 0.1 (0.0-0.4) X10*3/uL Baso # (Auto) 0.0 (0.0-0.2) X10*3/uL Abs Immat Gran (auto) 0.06 H (0.00-0.03) X10*3/uL Absolute Neuts (auto) 7.2 (2.0-8.3) x10*3/uL Absolute Nucleated RBC 0.000 (0.0-0.012) X10*3/uL Nucleated RBC % (auto) 0.0 (0.0-0.2) /100WBC Sodium 138 (135-145) mmol/L Potassium 4.0 (3.3-5.1) mmol/L Chloride 108 (96-108) mmol/L Carbon Dioxide 21 L (22-29) mmol/L Anion Gap 13 (12-20) BUN 10 (9-16) mg/dL Creatinine 0.76 (0.5-1.4) mg/dL Estim Creat Clear Calc 90.6 Estimated GFR > 60 Random Glucose 113 (60-115) mg/dL Calcium 8.5 D (8.4-10.2) mg/dL Total Bilirubin 0.3 (0.0-1.0) mg/dL AST 24 (5-31) U/L ALT 22 (0-31) U/L Alkaline Phosphatase 69 (39-117) U/L Total Protein 7.1 (6.5-8.0) g/dL Albumin 4.0 (3.5-5.0) g/dL Urine Color Yellow Urine Appearance Clear Urine pH 5.5 (5.0-9.0) Ur Specific [place] >= 1.030 H (1.005-1.025) Urine Protein Negative (Neg-Trace) mg/dL Urine Glucose (UA) Negative (Negative) mg/dL Urine Ketones Negative (Negative) mg/dL Urine Blood Small (1+) H (Negative) Urine Nitrite Negative (Negative) Ur Leukocyte Esterase Negative (Negative) Urine RBC 6-10 H (0-2) /HPF Urine WBC 0-5 (0-5) /HPF Ur Squamous Epith Cells 0-2 (0-2) /HPF Urine Bacteria None Seen (None Seen) Hyaline Casts 0-2 (0-2) /LPF Urine Test NEGATIVE (NEGATIVE) Influenza Type A (PCR) NEGATIVE (Negative) Influenza Type B (PCR) NEGATIVE (Negative) RSV RNA Qual (PCR) NEGATIVE (Negative) SARS-CoV-2 RNA (RT-PCR) NEGATIVE (Negative) S. pyogenes GrpA SPARKLE Negative (Negative) Independent Interpretation I performed an independent interpretation of an: Plain X-Ray Radiology Impression Discussion of test interpretation with radiology: I have reviewed the radiologist's reading. External Record Review External record reviewed: Inpatient record, Office record, Outpatient record, Prior outpatient labs, Prior outpatient radiology, Primary care record and Outside ED record Tests considered The following testing was considered but not selected: As above Prescription Management I considered prescription management with: Pain Medication Chronic Conditions Patient?s care impacted by: Other Social Determinants Patient?s care significantly limited by Social Determinants of Health including: Other Social Determinant of Health Discharge Plan Discharge Clinical Impression: Bronchitis, Low back pain Patient Disposition: Home, Self-Care Prescriptions: No Action alprazolam 0.25 mg tablet 0.25 mg PO DAILY PRN (Reason: anxiety) 30 Days Qty: 10 0RF dicyclomine 10 mg capsule 10 mg PO QID Qty: 90 0RF phenazopyridine [Pyridium] 200 mg tablet 200 mg PO TID 3 Days Qty: 9 0RF sulfamethoxazole-trimethoprim [Bactrim DS] 800-160 mg tablet 1 tab PO BID 5 Days Qty: 10 0RF terconazole 0.8 % cream 1 appful vaginal BEDTIME 3 Days Qty: 20 0RF metronidazole 500 mg tablet 500 mg PO BID 7 Days Qty: 14 0RF Referrals: Po,Ben Beckwith MD [Primary Care Provider] - Print Language: Uzbek
[2024-04-28 11:26] LABS: Appearance Urine Clear; Color Urine Yellow; Glucose Urine UA Negative (Negative); Leukocyte Esterase Urine Negative (Negative); Nitrite Urine Negative (Negative); PH 5.5 (5.0-9.0); Specific Gravity - Urine >= 1.030 (1.005-1.025); UMIC TRIGGER UACC YES; Urine Blood Small (1+) (Negative); Urine Ketones Negative (Negative); Urine Protein Negative (Neg-Trace)
[2024-04-28 11:27] LABS: UPreg QC Valid YES; Urine Pregnancy NEGATIVE (NEGATIVE)
[2024-04-28 11:33] LABS: Bacteria Urine None Seen (None Seen); Hyaline Casts Urine 0-2 /LPF (0-2); Squamous Epithelial Cell Urine 0-2 /HPF (0-2); WBC Urine 0-5 /HPF (0-5)
[2024-04-28 11:49] VITALS: BP 107/70; PULSE 82; RESP 16; TEMP 36.2; O2SAT 95
[2024-04-28 12:09] VITALS: BP 107/70; PULSE 82; RESP 16; TEMP 36.2; O2SAT 95
== END 2024-04-28 12:12 | disposition home or self-care (01) ==
PROVIDERS: Physician Assistant; Emergency Provider Emergency Medicine; PCP Internal Medicine
DX: J40 Bronchitis, not specified as acute or chronic (principal); M54.50 Low back pain, unspecified; R05.9 Cough, unspecified; R09.89 Other specified symptoms and signs involving the circulatory and respiratory systems; Z03.818 Encounter for observation for suspected exposure to other biological agents ruled out; Z79.899 Other long term (current) drug therapy
CPT/HCPCS: 0241U; 71046; 72100; 80053; 81001; 81025; 85025; 87651; 96372; 99283; 99284; J1885

== ENCOUNTER → 2024-04-28 09:35 | Outpatient (BNV) | payer OTHER, SELFPAY | PROVIDERS: Emergency Provider Emergency Medicine; PCP Internal Medicine; Visit Provider Specialist | DX: R05.9 Cough, unspecified (principal); M54.50 Low back pain, unspecified | CPT/HCPCS: 71046; 72100 ==

== ENCOUNTER 2024-05-03 10:31 | Outpatient (AMB) | payer OTHER, SELFPAY ==
--- NOTE | 2024-05-03 10:34 | A.OFFPC_ITS ---
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 Accompanied by: Self / Same As Patient Allergies levofloxacin [From Levaquin] Adverse Reaction (Mild, Verified 05/03/24 10:36) dizziness metronidazole [From Flagyl] Adverse Reaction (Mild, Verified 05/03/24 10:36) dizziness Medication List - Last Reconciled 05/03/24 by Anahi Mireles PA-C acetaminophen (Tylenol Extra Strength) 500 mg PO Q6H PRN alprazolam 0.25 mg PO DAILY PRN 30 days cyclobenzaprine 5 mg PO Q8H PRN 5 days dicyclomine 10 mg PO QID lidocaine 5% (Lidoderm) 1 patch topical DAILY PRN MDD remove after 12 hours naproxen 500 mg PO BID PRN 10 days Tobacco use date assessed: 05/03/24 Dental Screening Dental Screen Date: 05/03/24 Did you have a dental visit in the last 12 months?: Yes Did you have a dental problem in the last 6 months where you did not have access to dental care?: No Was dental information given to patient?: Patient has dentist HPI [facility] [place] 04/28 lower back pain , cold symptoms HPI Details 44-year-old female with past medical his tory of JUAN LUIS-III, anemia, GERD last seen by Dr. Mckeon 05/2023 coming in for hospital discharge follow up.?In review of the notes patient was seen in [facility] [place] ED 04/28/2024 for right-sided low back pain and upper respiratory symptoms patient was diagnosed with bronchitis and discharged home. Patient tells us today she has been having upper respiratory symptoms including dry cough since . The cough initially was improving but has turned into excessive phlegm and sinus pressure that has been worsening over the last week. She did go to the ED for this concern 04/28/2024 was given prednisone which she states initially help but she has discontinued. She is also being seen in the ED for back pain which she states has improved but is still sore and she has stiffness in the back that is worse when she stands for long periods of time. Pain no longer radiates down her leg. 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 Dyspnea Palpitations SOB (shortness of breath) Family planning advice Constipation Vaginal discharge Hx LEEP (loop electrosurgical excision procedure), cervix, COVID-19 virus infection Epigastric abdominal pain Anxiety and depression Vaginal bleeding History of abnormal cervical Pap smear Complex ovarian cyst Depression Family History Father Bladder cancer Mother Breast cancer Uterine cancer Diabetes HTN (hypertension) Maternal Grandmother Breast cancer Paternal Uncle Bone cancer Social History Housing: House Alcohol intake: current Alcohol intake frequency: holidays/special occasions only Alcohol type: beer, wine and hard liquor Comment: 1 a week 4 drinks Patient Tobacco Use Status: Never used Tobacco e-Cigarette/Vaping Use: Never Used Second Hand Smoke Exposure: No service: No Current occupational status: employed Sexual orientation: Straight/Heterosexual Gender identity: Female Cognitive needs: No Hearing needs: No Vision needs: No Female Reproductive History Menstrual Age of Menarche: 16 Questionnaire PHQ-9 Over the last 2 weeks, how often have you been bothered by any of the following problems? 1. Little interest or pleasure in doing things: not at all 2. Feeling down, depressed, or hopeless: not at all 3. Trouble falling or staying asleep, or sleeping too much: not at all 4. Feeling tired or having little energy: not at all 5. Poor appetite or overeating: not at all 6. Feeling bad about yourself - or that you are a failure or have let yourself or your family down: not at all 7. Trouble concentrating on things, such as reading the newspaper or watching television: not at all 8. Moving or speaking so slowly that other people could have noticed. Or the opposite - being so fidgety or restless that you have been moving around a lot more than usual: not at all 9. Thoughts that you would be better off or of hurting yourself in some way: not at all Total score: 0 Depression Screening Interpretation: Negative Depression Screening Done: Yes Source: Developed by Drs. Thom Angeles, Ingrid Marquez, Julio Cruz and colleagues, with an educational tawny from [employer]. Thrive Questionnaire Date Thrive assessed: 05/03/24 I am a: Patient What is your living situation today?: I have a steady place to live Within the past 12 months, did the food you bought not last and you didn't have the money to get more?: Never true Within the past 12 months, did you worry whether your food would run out before you got money to buy more?: Never true Do you have trouble paying for medicines?: No Do you have trouble getting transportation to medical appointments?: No Do you have trouble paying your heating and electricity bill?: No Do you have trouble taking care of your child, family member or friend?: No Do you have trouble with day-to-day activities such as bathing, preparing meals, shopping, managing finances, etc.?: No Are you currently unemployed and looking for a job?: No Are you interested in more education?: No Please select the resources that you would like help with: None Currently or been in a relationship where the following occur: No concerns reported THRIVE Score: 0 AUDIT C Alcohol Use Questionnaire (AUDIT-C) 1. How often do you have a drink containing alcohol?: 2-3 times a week 2. How many drinks containing alcohol do you have on a typical day when you are drinking?: 3 or 4 3. How often do you have six or more drinks on one occasion?: Never Total Score: 4 ANGEL LUIS-7 AMB Questionnaire ANGEL LUIS-7 Date ANGEL LUIS - 7 assessed: 05/03/24 Feeling nervous, anxious, or on edge: 0 = Not at all Not being able to stop or control worryin = Not at all Worrying too much about different things: 0 = Not at all Trouble relaxin = Not at all Being so restless that it is hard to sit still: 0 = Not at all Becoming easily annoyed or irritable: 0 = Not at all Feeling afraid as if something awful might happen: 0 = Not at all Total ANGEL LUIS-7 score (0-4 normal; 5-9 mild; 10-14 moderate; 15-21 severe): 0 Source: Developed by Drs. Thom Angeles, Ingrid Marquez, Julio Cruz and colleagues, with an educational tawny from [employer]. Review of Systems Const Denies body aches, Denies chills, Denies fever(s), Reports headache(s) and Denies poor appetite Eyes Reports no additional complaints ENT Denies dizziness, Reports headache(s), Reports nasal congestion, Reports nasal discharge, Reports sinus pain, Reports sinus pressure and Denies sore throat Card Denies chest pain, Denies lightheadedness and Denies dyspnea Resp Reports cough and Denies dyspnea GI Reports no additional complaints Reports no additional complaints Musc Reports abnormal gait and Reports back pain Skin/Breast Reports system reviewed and no additional complaints, except as documented Neuro Reports abnormal gait, Denies dizziness and Reports headache(s) Psych Reports no additional complaints Physical exam (Primary Care) Tobacco/Smoking Status: Tobacco use Status Tobacco use date assessed 06/16/23 12/05/23 16:14 Patient Tobacco Use Status Never used Tobacco 12/05/23 16:14 e-Cigarette/Vaping Use Never Used 12/05/23 16:14 Depression Screening Interpretation: Negative Thrive Assessment: Date of Thrive Assessment Date Thrive assessed 06/16/23 12/05/23 16:14 Currently or been in a relationship where the following occur: No concerns reported Const General: cooperative, healthy appearing, comfortable and no acute distress Orientation/consciousness: patient oriented x3 HENMT Head: Yes normocephalic Ears: hearing grossly normal bilaterally, TM's normal bilaterally and EAC's normal General nose exam: Normal external nose present Face and sinus: Yes normal facial exam Mouth: Normal oral and palatal mucosa present Throat: Yes posterior oropharynx normal Eyes General: appearance normal, both eyes and all related structures Conjunctivae: conjunctivae normal Neck Neck: Yes full ROM and Yes no lymphadenopathy Resp Effort & Inspection: normal respiratory effort Auscultation: clear to auscultation bilaterally, no crackles, no rales, no rhonchi and no wheezes Cardio Rate: regular rate Rhythm: regular rhythm Skin General skin exam: no rashes or lesions noted Neuro General: patient oriented x3 Gait exam (Neuro): Normal gait present Extrem General: Yes normal to inspection, Yes full ROM and No edema Psych Affect: normal affect Attitude: cooperative Insight: Good insight present (Psych) Judgement: Good judgement present (Psych) Coding Level of Care Code Est Pt Level 4 (72670) Diagnoses Low back pain M54.50 Sinusitis J32.9 Assessment & Plan Assessment & Plan (1) Low back pain: Code(s): M54.50 - Low back pain, unspecified Category: Medical Plan: Patient complaining of low back pain that began after a long road trip when she was getting on the car she felt a sharp twinge in her back followed by pain and radiation down her right leg. Since evaluation in the ED lumbar spine x-ray was negative has been using cyclobenzaprine as needed and lidocaine patches. She states the pain has been improving but she does still have some stiffness in the back and would like to go to physical therapy. Referral placed to physical therapy. Advised patient to continue on lidocaine patches, Tylenol and ibuprofen as needed and cyclobenzaprine for severe pain. (2) Sinusitis: Code(s): J32.9 - Chronic sinusitis, unspecified Category: Medical Plan: Patient complaining of upper respiratory symptoms that were initially improving and began worsening the last week. On exam lung sounds are clear to auscultation bilaterally low suspicion for pneumonia and we will defer x-ray at this time. Given azithromycin to treat bacterial sinusitis due to increased sinus pressure and mucus production. Given Mucinex and advised to use Sudafed as needed but no longer than 3 days. Plan This note was constructed using voice recognition software. While every effort has been made to ensure accuracy and recreation engineer, still areas may have been included sometimes these areas may affect the content or meeting of the given symptoms. Total time spent caring for the patient today was 20 minutes. This includes time spent before the visit reviewing the chart, time spent during the visit, and time spent after the visit and documentation. Orders: Orders PT Evaluation and Treatment Today M54.50 - Low back pain, unspecified Medications: New guaifenesin 400 mg PO QID PRN 20 tabs 0RF cough azithromycin For 500 mg dose pack: take 500 mg once daily for 3 days PO 3 tabs 0RF
[2024-05-03 10:37] VITALS: BP 130/70; PULSE 94; O2SAT 95; BMI 28.4
== END 2024-05-03 11:15 | disposition home or self-care (01) ==
PROVIDERS: PCP Internal Medicine
DX: M54.50 Low back pain, unspecified (principal); J32.9 Chronic sinusitis, unspecified

== ENCOUNTER → 2024-05-03 10:31 | Outpatient (BNVA) | payer OTHER, SELFPAY | PROVIDERS: PCP Internal Medicine | DX: M54.50 Low back pain, unspecified (principal); J32.9 Chronic sinusitis, unspecified | CPT/HCPCS: 99212 ==

== ENCOUNTER 2024-05-27 14:11 | Outpatient (AMB) | payer OTHER, SELFPAY ==
[2024-05-27 14:25] VITALS: BP 122/72; PULSE 70; O2SAT 98; BMI 28.5
--- NOTE | 2024-05-27 14:25 | A.OFFPC_ITS ---
Vital Signs 05/27/24 14:25 Height 5 ft 3 in Weight 161 lb BMI 28.5 BP 122/72 Blood Pressure Location Lt brachial Position Sitting Pulse 70 Pulse Source Pulse Oximeter Pulse Oximetry (%) 98 Oxygen Delivery Method Room Air Intake Visit Reasons: Dizziness Allergies levofloxacin [From Levaquin] Adverse Reaction (Mild, Verified 05/27/24 14:26) dizziness metronidazole [From Flagyl] Adverse Reaction (Mild, Verified 05/27/24 14:26) dizziness Medication List - Last Reconciled 05/27/24 by Ben Mckeon MD sennosides-docusate sodium 8.6-50 mg (Senna-S) 2 tab-caps (2 x 8.6-50 mg) PO BEDTIME 30 days Tobacco use date assessed: 05/03/24 Dental Screening Dental Screen Date: 05/03/24 HPI Dizziness HPI Details The patient is a 44-year-old female presenting with dizziness. The dizziness began after the initial COVID-19 infection several years ago and has progressively worsened. The patient describes episodes of dizziness as non- spinning but resulting in a loss of balance and occasional confusion. These episodes occur with sudden movements, and there is no associated syncope. The dizziness has been persistent since changing to a new eyeglass prescription two years ago, possibly indicating visual disturbance. The patient has also been experiencing chronic back pain, especially after a cold, which was previously managed with muscle relaxants. Additionally, the patient reports longstanding constipation, managed intermittently with Senna, though hesitant to become dependent on it. A history of uterine fibroid measuring 10 mm and some calcifications on the ovary was noted, though these are stable and have not changed on recent ultrasounds. There was a mention of mild anemia potentially contributing to symptoms. The patient is not on any current medications aside from occasional Tylenol usage. 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 Dyspnea Palpitations SOB (shortness of breath) Family planning advice Constipation Vaginal discharge Hx LEEP (loop electrosurgical excision procedure), cervix, COVID-19 virus infection Epigastric abdominal pain Anxiety and depression Vaginal bleeding History of abnormal cervical Pap smear Complex ovarian cyst Depression Family History Father Bladder cancer Mother Breast cancer Uterine cancer Diabetes HTN (hypertension) Maternal Grandmother Breast cancer Paternal Uncle Bone cancer Social History Housing: House Alcohol intake: current Alcohol intake frequency: holidays/special occasions only Alcohol type: beer, wine and hard liquor Comment: 1 a week 4 drinks Patient Tobacco Use Status: Never used Tobacco Tobacco use type: Cigarette e-Cigarette/Vaping Use: Never Used Second Hand Smoke Exposure: No service: No Current occupational status: employed Sexual orientation: Straight/Heterosexual Gender identity: Female Cognitive needs: No Hearing needs: No Vision needs: Yes Female Reproductive History Menstrual Age of Menarche: 16 Questionnaire PHQ-9 Over the last 2 weeks, how often have you been bothered by any of the following problems? 1. Little interest or pleasure in doing things: not at all 2. Feeling down, depressed, or hopeless: not at all 3. Trouble falling or staying asleep, or sleeping too much: not at all 4. Feeling tired or having little energy: not at all 5. Poor appetite or overeating: not at all 6. Feeling bad about yourself - or that you are a failure or have let yourself or your family down: not at all 7. Trouble concentrating on things, such as reading the newspaper or watching television: not at all 8. Moving or speaking so slowly that other people could have noticed. Or the opposite - being so fidgety or restless that you have been moving around a lot more than usual: not at all 9. Thoughts that you would be better off or of hurting yourself in some way: not at all Total score: 0 Depression Screening Interpretation: Negative Depression Screening Done: Yes Source: Developed by Drs. Thom Angeles, Ingrid Marquez, Julio Cruz and colleagues, with an educational tawny from [employer]. Thrive Questionnaire Date Thrive assessed: 05/03/24 ANGEL LUIS-7 AMB Questionnaire ANGEL LUIS-7 Date ANGEL LUIS - 7 assessed: 05/03/24 Source: Developed by Drs. Thom Angeles, Julio Haynes and colleagues, with an educational tawny from [employer]. Physical exam (Primary Care) Vital Signs: Last Vital Signs Pulse 70 05/27/24 14:25 BP 122/72 05/27/24 14:25 Pulse Ox 98 05/27/24 14:25 Oxygen Delivery Method Room Air 05/27/24 14:25 BMI result Body Mass Index 28.5 Tobacco/Smoking Status: Tobacco use Status Tobacco use date assessed 05/03/24 05/27/24 14:30 Patient Tobacco Use Status Never used Tobacco 05/27/24 14:30 Tobacco use type Cigarette 05/27/24 14:30 e-Cigarette/Vaping Use Never Used 05/27/24 14:30 PHQ-9: PHQ-9 Score PHQ-9: Total score 0 05/27/24 14:55 Depression Screening Interpretation: Negative Thrive Assessment: Date of Thrive Assessment Date Thrive assessed 05/03/24 05/27/24 14:30 Const General: alert; No acute distress Eyes Conjunctivae: conjunctivae normal Resp Auscultation: clear to auscultation bilaterally Cardio Rate: regular rate Rhythm: regular rhythm GI Inspection: Yes normal to inspection Extrem General: Yes normal to inspection and No edema Coding Level of Care Code Est Pt Level 4 (52912) Diagnoses GERD (gastroesophageal reflux disease) K21.9 Generalized anxiety disorder F41.1 Hypercholesterolemia E78.00 Constipation K59.00 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 Assessment & Plan Assessment & Plan (1) GERD (gastroesophageal reflux disease): Code(s): K21.9 - Gastro-esophageal reflux disease without esophagitis Category: Medical (2) Generalized anxiety disorder: Comment: decline counselling 09/2021, 05/2022 Code(s): F41.1 - Generalized anxiety disorder Category: Medical (3) Hypercholesterolemia: Code(s): E78.00 - Pure hypercholesterolemia, unspecified Category: Medical (4) Constipation: Code(s): K59.00 - Constipation, unspecified Category: Medical (5) Vertigo of central origin: Code(s): H81.4 - Vertigo of central origin Category: Medical Plan - Evaluate dizziness through referral for a vestibular assessment to address potential vertigo issues, considering the inner ear's role in balance. - Initiate physical therapy for chronic back pain management. - Prescribe Senna for constipation relief, with patient education on usage to avoid dependency concerns. - Consider ophthalmologic evaluation to assess current eyeglass prescription and visual contribution to dizziness. - Monitor the uterine fibroid during routine gynecological check-ups. - Maintain hydration and reduced alcohol intake as part of overall health management. Orders: Orders PT Evaluation and Treatment Today H81.4 - Vertigo of central origin Medications: Refilled sennosides-docusate sodium 8.6-50 mg (Senna-S) 2 tab-caps (2 x 8.6-50 mg) PO BEDTIME 60 tabs 11RF 30 days K59.00 - Constipation, unspecified
== END 2024-05-27 15:14 | disposition home or self-care (01) ==
PROVIDERS: PCP Internal Medicine; Visit Provider Internal Medicine
DX: K21.9 Gastro-esophageal reflux disease without esophagitis (principal); F41.1 Generalized anxiety disorder; E78.00 Pure hypercholesterolemia, unspecified; K59.00 Constipation, unspecified; H81.4 Vertigo of central origin

== ENCOUNTER → 2024-05-27 14:11 | Outpatient (BNVA) | payer OTHER, SELFPAY | PROVIDERS: PCP Internal Medicine; Visit Provider Internal Medicine | DX: K21.9 Gastro-esophageal reflux disease without esophagitis (principal); F41.1 Generalized anxiety disorder; E78.00 Pure hypercholesterolemia, unspecified; K59.00 Constipation, unspecified; H81.4 Vertigo of central origin | CPT/HCPCS: 99212 ==

== ENCOUNTER 2024-06-10 16:44 | Emergency (ER) | payer OTHER, SELFPAY ==
[2024-06-10 17:17] VITALS: BP 123/77; PULSE 108; RESP 19; TEMP 37.1; O2SAT 98; BMI 28.7
--- NOTE | 2024-06-10 17:21 | ED.URI ---
HPI - URI/Sore Throat General Chief Complaint: Upper Respiratory Symptoms Stated Complaint: test for covid / flu Related Data Previous Rx's ?Medication ?Instructions ?Recorded sennosides 8.6 mg-docusate sodium 2 tab-cap (2 x 8.6-50 mg) PO 05/27/24 50 mg tablet (Senna-S) BEDTIME 30 days #60 tabs amoxicillin 500 mg tablet 500 mg PO BID 7 days #14 tabs 06/09/24 Allergies Allergy/AdvReac Type Severity Reaction Status Date / Time levofloxacin [From Levaquin] AdvReac Mild dizziness Verified 06/10/24 17:19 metronidazole [From Flagyl] AdvReac Mild dizziness Verified 06/10/24 17:19 [facility] Past Medical History Medical History (Updated 06/12/24 @ 11:31 by CIELO Lyle) Microscopic hematuria Upper respiratory infection Amenorrhea, secondary Lower urinary tract symptoms Bladder pain Diarrhea Proctalgia fugax IBS (irritable bowel syndrome) Hematuria Myoma Rectal pain Female pelvic pain [id number] syndrome Dyspnea Palpitations SOB (shortness of breath) Family planning advice Constipation Vaginal discharge Hx LEEP (loop electrosurgical excision procedure), cervix, COVID-19 virus infection Epigastric abdominal pain Anxiety and depression Vaginal bleeding History of abnormal cervical Pap smear Complex ovarian cyst Depression Family History Family History Father Bladder cancer Mother Breast cancer Uterine cancer Diabetes HTN (hypertension) Maternal Grandmother Breast cancer Paternal Uncle Bone cancer Social History Social History Housing: House Alcohol intake: current Alcohol intake frequency: holidays/special occasions only Alcohol type: beer, wine and hard liquor Comment: 1 a week 4 drinks Patient Tobacco Use Status: Never used Tobacco Tobacco use type: Cigarette e-Cigarette/Vaping Use: Never Used Second Hand Smoke Exposure: No Advance Directives: No Advance Directives Information Provided: No service: No Current occupational status: employed Sexual orientation: Straight/Heterosexual Gender identity: Female Cognitive needs: No Hearing needs: No Vision needs: Yes Physical Exam Vital Signs: Vital Signs: Last Vital Signs Temp 100.3 F 06/10/24 22:41 Pulse 115 H 06/10/24 22:41 Resp 19 06/10/24 22:41 BP 132/81 06/10/24 22:41 Pulse Ox 98 06/10/24 22:41 O2 Del Method Room Air 06/10/24 22:41 BMI result Body Mass Index 28.7 Course Course Course Narrative: This is an RME: Additional HPI, ROS, PE not included below will be deferred to primary provider. RME assessment and note performed by: Ct Redding PA-C This is a 44-year-old female who presents emergency department for evaluation of fever, body aches, headaches and cough x 2 days. She has been taking Tylenol and Motrin for her symptoms. No chest pain or shortness of breath. Plan: Viral swabs Reevaluation(s) Reevaluation #1: Patient left without completing treatment. Medications Administered Discontinued Medications Generic Name Dose Route Start Last Admin Trade Name Freq PRN Reason Stop Dose Admin Acetaminophen 650 mg 06/10/24 22:46 06/10/24 22:48 Acetaminophen 325 Mg Tablet PO 06/10/24 22:47 650 mg ONCE ONE Administration Medical Decision Making Lab Data Labs: Lab Results 06/10/24 Range/Units 18:04 Influenza Type A (PCR) POSITIVE A (Negative) Influenza Type B (PCR) NEGATIVE (Negative) RSV RNA Qual (PCR) NEGATIVE (Negative) SARS-CoV-2 RNA (RT-PCR) NEGATIVE (Negative) S. pyogenes GrpA SPARKLE Negative (Negative) Discharge Plan Discharge Clinical Impression: Cough Patient Disposition: Left W/O Completing Treatment Prescriptions: No Action amoxicillin 500 mg tablet 500 mg PO BID 7 Days Qty: 14 0RF sennosides-docusate sodium [Senna-S] 8.6-50 mg tablet 2 tab-cap PO BEDTIME 30 Days Qty: 60 11RF Discharge Date/Time: 06/10/24 22:56
[2024-06-10 18:21] LABS: IDNOW Serial# 58CA691E; Strep A Nucleic Acid Negative (Negative)
[2024-06-10 18:53] LABS: Influenza A PCR POSITIVE (Negative); Influenza B PCR NEGATIVE (Negative); Resp Syncy Virus RNA Qual PCR NEGATIVE (Negative); SARS COV2 PCR INHOUSE NEGATIVE (Negative)
[2024-06-10 22:41] VITALS: BP 132/81; PULSE 115; RESP 19; TEMP 37.9; O2SAT 98
[2024-06-10] MEDS: Acetaminophen 325 MG TABLET 650 MG PO (22:48)
== END 2024-06-10 22:56 | disposition left against medical advice (07) ==
PROVIDERS: Physician Assistant Medical; Emergency Provider Emergency Medicine; PCP Internal Medicine
DX: R05.9 Cough, unspecified (principal); R50.9 Fever, unspecified; M79.10 Myalgia, unspecified site; R51.9 Headache, unspecified; Z03.818 Encounter for observation for suspected exposure to other biological agents ruled out
CPT/HCPCS: 0241U; 87651; 99282; 99283

== ENCOUNTER 2024-06-24 09:44 | Outpatient (AMB) | payer OTHER, SELFPAY ==
[2024-06-24 09:48] VITALS: BMI 28.7
--- NOTE | 2024-06-24 09:48 | A.OFFVIS_ITS ---
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 [facility] Medical History Microscopic hematuria Upper respiratory infection Amenorrhea, secondary Lower urinary tract symptoms Bladder pain Diarrhea Proctalgia fugax IBS (irritable bowel syndrome) Hematuria Myoma Rectal pain Female pelvic pain [id number] syndrome Dyspnea Palpitations SOB (shortness of breath) Family planning advice Constipation Vaginal discharge Hx LEEP (loop electrosurgical excision procedure), cervix, COVID-19 virus infection Epigastric abdominal pain Anxiety and depression Vaginal bleeding History of abnormal cervical Pap smear Complex ovarian cyst Depression Family History Father Bladder cancer Mother Breast cancer Uterine cancer Diabetes HTN (hypertension) Maternal Grandmother Breast cancer Paternal Uncle Bone cancer Social History Housing: House Alcohol intake: current Alcohol intake frequency: holidays/special occasions only Alcohol type: beer, wine and hard liquor Comment: 1 a week 4 drinks Patient Tobacco Use Status: Never used Tobacco Tobacco use type: Cigarette e-Cigarette/Vaping Use: Never Used Second Hand Smoke Exposure: No service: No Current occupational status: employed Sexual orientation: Straight/Heterosexual Gender identity: Female Cognitive needs: No Hearing needs: No Vision needs: Yes Female Reproductive History Menstrual Age of Menarche: 16 Date of last menstrual period: 06/12/24 Review of Systems Const All systems reviewed & are unremarkable except as noted in HPI and below Reports as per HPI and Reports no additional complaints GI Reports no additional complaints Reports no additional complaints Physical Exam Vital Signs: BMI result Body Mass Index 28.7 Results AMB Urinalysis Dipstick UR Leukocytes Negative Last Edit by Marianashalom Chewero, [facility] on 06/24/24 10:01 UR Nitrite Negative Last Edit by Mariana Carey, REGULATORY COMPLIANCE SPECIALIST on 06/24/24 10:01 UR Urobilinogen Normal [facility], REGULATORY COMPLIANCE SPECIALIST on 06/24/24 10:01 UR Protein Negative Last Edit [facility], REGULATORY COMPLIANCE SPECIALIST on 06/24/24 10:01 UR Ph 6.0 Last Edit by Mariana Carey, REGULATORY COMPLIANCE SPECIALIST on 06/24/24 10:01 UR Blood Negative Last Edit [facility], REGULATORY COMPLIANCE SPECIALIST on 06/24/24 10:01 UR Specific [place] 1.020 Last Edit by Mariana Carey, REGULATORY COMPLIANCE SPECIALIST on 06/24/24 10:01 UR Ketone Negative Last Edit [facility], [facility] on 06/24/24 10:01 UR Bilirubin Negative Last Edit by [facility], REGULATORY COMPLIANCE SPECIALIST on 06/24/24 10:01 UR Glucose Negative Last Edit by [facility], [facility] on 06/24/24 10:01 Results Reviewed Results Reviewed: Laboratory Last Values Urine pH (Clinic) 6.0 06/24/24 10:00 Specific [place] (Clinic) 1.020 06/24/24 10:00 Ur Protein (Clinic) Negative 06/24/24 10:00 Ur Ketones (Clinic) Negative 06/24/24 10:00 Urine Blood (Clinic) Negative 06/24/24 10:00 Urine Nitrite Negative 06/24/24 10:00 Urine Bilirubin (Clinic) Negative 06/24/24 10:00 Urobilinogen (Clinic) Normal 06/24/24 10:00 Leukocyte Esterase (Clinic) Negative 06/24/24 10:00 Urine Glucose (Clinic) Negative 06/24/24 10:00 Assessment & Plan Assessment & Plan (1) Microscopic hematuria: Code(s): R31.29 - Other microscopic hematuria Category: Medical Plan: Urine dip done today showed no evidence of microscopic hematuria, the patient was reassured (2) Calcification of ovary: Code(s): N83.8 - Other noninflammatory disorders of ovary, fallopian tube and broad ligament Category: Medical Plan: Discussed with the patient the finding of microscopic defecation of the ovary stable. All questions answered, the patient verbalized understanding (3) Uterine myoma: Code(s): D25.9 - Leiomyoma of uterus, unspecified Category: Medical Plan: Discussed with the patient the findings on pelvic ultrasound & the risk of myosarcoma; in addition reviewed with the patient that malignancy and pre malignancy cannot be ruled out without hysterectomy for pathological evaluation ; furthermore, explained to the patient the limitation of pelvic ultrasound and endometrial biopsy in the setting. Discussed with the patient the options of treatment including expectant management versus hysterectomy; the pros and cons, risks benefits of each approach were discussed with the patient including the fact that in cases of myosarcoma, surgical treatment can lead to early diagnosis and positively affects the prognosis; after further discussion, the patient decided to proceed with expectant management. Will repeat pelvic ultrasound periodically. Instructions given to patient to call in case any of the following occurs: pressure symptoms, abnormal uterine bleeding, pelvic pain; and to schedule a six-months pelvic ultrasound (order placed) and a follow-up appointment . All questions answered, the patient verbalized understanding and agreed with the plan . Orders: Orders AMB Urinalysis Dipstick Today R31.29 - Other microscopic hematuria US pelvic and transvaginal 6 Months D25.9 - Leiomyoma of uterus, unspecified Coding Level of Care Code Est Pt Level 3 (64132) Diagnoses Microscopic hematuria R31.29 Calcification of ovary N83.8 Uterine myoma D25.9
== END 2024-06-24 10:27 | disposition home or self-care (01) ==
LOC: HO.HWS 09:44
PROVIDERS: PCP Internal Medicine; Visit Provider Obstetrics & Gynecology
DX: R31.29 Other microscopic hematuria (principal); N83.8 Other noninflammatory disorders of ovary, fallopian tube and broad ligament; D25.9 Leiomyoma of uterus, unspecified
CPT/HCPCS: 99213

== ENCOUNTER → 2024-06-24 09:44 | Outpatient (BNVA) | payer OTHER, SELFPAY | PROVIDERS: PCP Internal Medicine; Visit Provider Obstetrics & Gynecology | DX: Z00.00 Encounter for general adult medical examination without abnormal findings (principal); M54.50 Low back pain, unspecified; K59.00 Constipation, unspecified; E55.9 Vitamin D deficiency, unspecified; E78.00 Pure hypercholesterolemia, unspecified; K58.9 Irritable bowel syndrome, unspecified; N84.0 Polyp of corpus uteri; F41.1 Generalized anxiety disorder; Q27.34 Arteriovenous malformation of renal vessel; K21.9 Gastro-esophageal reflux disease without esophagitis; D64.9 Anemia, unspecified; D06.9 Carcinoma in situ of cervix, unspecified; R31.29 Other microscopic hematuria; N83.8 Other noninflammatory disorders of ovary, fallopian tube and broad ligament; D25.9 Leiomyoma of uterus, unspecified | CPT/HCPCS: 81002; 99212; 99396 ==

== ENCOUNTER 2024-06-24 10:44 | Outpatient (AMB) | payer OTHER, SELFPAY ==
[2024-06-24 10:56] VITALS: BP 120/60; PULSE 94; TEMP 36.3; O2SAT 99; BMI 27.5
--- NOTE | 2024-06-24 10:56 | MHC.PC.OV ---
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 Mckeon 05/2024 coming in for annual exam.? In review of the notes, patient was seen in [facility] 06/10/2024 for a cough but left without being seen. Eye doctor: October 2024 Mammo: scheuled 06/2024 Colonoscopy: no due yet Pap smear: December 2024 Vax: Td is due but declined patient tells us today she recently recovered from the influenza virus. She is no longer having symptoms of the time. Has no acute concerns today. 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 Dyspnea Palpitations SOB (shortness of breath) Family planning advice Constipation Vaginal discharge Hx LEEP (loop electrosurgical excision procedure), cervix, COVID-19 virus infection Epigastric abdominal pain Anxiety and depression Vaginal bleeding History of abnormal cervical Pap smear Complex ovarian cyst Depression Surgical History History of D&C Family History Father Bladder cancer Mother Breast cancer Uterine cancer Diabetes HTN (hypertension) Maternal Grandmother Breast cancer Paternal Uncle Bone cancer Social History Housing: House Alcohol intake: current Alcohol intake frequency: holidays/special occasions only Alcohol type: beer, wine and hard liquor Comment: 1 a week 4 drinks Patient Tobacco Use Status: Never used Tobacco Tobacco use type: Cigarette e-Cigarette/Vaping Use: Never Used Second Hand Smoke Exposure: No service: No Current occupational status: employed Sexual orientation: Straight/Heterosexual Gender identity: Female Cognitive needs: No Hearing needs: No Vision needs: Yes Female Reproductive History Menstrual Age of Menarche: 16 Questionnaire PHQ-9 Over the last 2 weeks, how often have you been bothered by any of the following problems? Depression Screening Interpretation: Negative Depression Screening Done: Yes Source: Developed by Drs. Thom Angeles, Ingrid Marquez, Julio Cruz and colleagues, with an educational tawny from [employer]. Thrive Questionnaire Date Thrive assessed: 05/03/24 I am a: Patient What is your living situation today?: I choose not to answer this question Within the past 12 months, did the food you bought not last and you didn't have the money to get more?: I choose not to answer this question Within the past 12 months, did you worry whether your food would run out before you got money to buy more?: I choose not to answer this question Do you have trouble paying for medicines?: I choose not to answer this question Do you have trouble getting transportation to medical appointments?: I choose not to answer this question Do you have trouble paying your heating and electricity bill?: I choose not to answer this question Do you have trouble taking care of your child, family member or friend?: I choose not to answer this question Do you have trouble with day-to-day activities such as bathing, preparing meals, shopping, managing finances, etc.?: I choose not to answer this question Are you currently unemployed and looking for a job?: I choose not to answer this question Are you interested in more education?: I choose not to answer this question Please select the resources that you would like help with: None Currently or been in a relationship where the following occur: I choose not to answer THRIVE Score: 0 AUDIT C Alcohol Use Questionnaire (AUDIT-C) 1. How often do you have a drink containing alcohol?: Monthly or less 2. How many drinks containing alcohol do you have on a typical day when you are drinking?: 1 or 2 3. How often do you have six or more drinks on one occasion?: Never Total Score: 1 ANGEL LUIS-7 AMB Questionnaire ANGEL LUIS-7 Date ANGEL LUIS - 7 assessed: 05/03/24 Feeling nervous, anxious, or on edge: 0 = Not at all Not being able to stop or control worryin = Not at all Worrying too much about different things: 0 = Not at all Trouble relaxin = Not at all Being so restless that it is hard to sit still: 0 = Not at all Becoming easily annoyed or irritable: 0 = Not at all Feeling afraid as if something awful might happen: 0 = Not at all Total ANGEL LUIS-7 score (0-4 normal; 5-9 mild; 10-14 moderate; 15-21 severe): 0 Source: Developed by Drs. Thom Angeles, Ingrid Marquez, Julio Cruz and colleagues, with an educational tawny from [employer]. Review of Systems Const Denies body aches, Denies chills, Denies fever(s), Denies headache(s) and Denies poor appetite Eyes Details: eye doctor every two years Reports no additional complaints and Reports requires corrective lenses ENT Denies dysphagia, Denies dizziness, Denies headache(s) and Denies odynophagia Card Denies chest pain, Denies syncope, Denies edema, Denies irregular heart rhythm, Denies lightheadedness and Denies dyspnea Resp Denies cough and Denies dyspnea GI Denies abdominal pain, Denies constipation, Denies dysphagia, Denies diarrhea, Denies nausea, Denies odynophagia and Denies vomiting Reports no additional complaints Musc Reports no additional complaints and Denies abnormal gait Skin/Breast Reports system reviewed and no additional complaints, except as documented Neuro Denies abnormal gait, Denies dizziness, Denies syncope and Denies headache(s) Psych Reports no additional complaints Physical exam (Primary Care) Tobacco/Smoking Status: Tobacco use Status Tobacco use date assessed 05/03/24 05/27/24 14:30 Patient Tobacco Use Status Never used Tobacco 05/27/24 14:30 Tobacco use type Cigarette 05/27/24 14:30 e-Cigarette/Vaping Use Never Used 05/27/24 14:30 Depression Screening Interpretation: Negative Thrive Assessment: Date of Thrive Assessment Date Thrive assessed 05/03/24 05/27/24 14:30 Currently or been in a relationship where the following occur: I choose not to answer Advance Care Planning discussion: Completed/Scanned Date of discussion: 06/24/24 Who was present: patient Forms completed: Health Care Proxy and MOLST Time spent: 1-15 minutes, not on file Actual minutes spent: 2 Const General: cooperative, healthy appearing, comfortable and no acute distress Orientation/consciousness: patient oriented x3 HENMT Head: Yes normocephalic Ears: hearing grossly normal bilaterally General nose exam: Normal external nose present Eyes General: appearance normal, both eyes and all related structures Conjunctivae: conjunctivae normal Neck Neck: Yes full ROM and Yes no lymphadenopathy Resp Effort & Inspection: normal respiratory effort Auscultation: clear to auscultation bilaterally, no crackles, no rales, no rhonchi and no wheezes Cardio Rate: regular rate Rhythm: regular rhythm Skin General skin exam: no rashes or lesions noted Neuro General: patient oriented x3 Gait exam (Neuro): Normal gait present Extrem General: Yes normal to inspection, Yes full ROM and No edema Psych Affect: normal affect Attitude: cooperative Insight: Good insight present (Psych) Judgement: Good judgement present (Psych) Results AMB Urinalysis Dipstick UR Leukocytes Negative Last Edit by Mariana Carey CMA on 06/24/24 10:01 UR Nitrite Negative Last Edit by Mariana Carey CMA on 06/24/24 10:01 UR Urobilinogen Normal Last Edit by Mariana Carey CMA on 06/24/24 10:01 UR Protein Negative Last Edit by Mariana Carey CMA on 06/24/24 10:01 UR Ph 6.0 Last Edit by Mariana Carey CMA on 06/24/24 10:01 UR Blood Negative Last Edit by Mariana Carey CMA on 06/24/24 10:01 UR Specific [place] 1.020 Last Edit by Mariana Carey CMA on 06/24/24 10:01 UR Ketone Negative Last Edit by Mariana Carey CMA on 06/24/24 10:01 UR Bilirubin Negative Last Edit by Mariana Carey CMA on 06/24/24 10:01 UR Glucose Negative Last Edit by Mariana Carey CMA on 06/24/24 10:01 Coding Level of Care Code Est Pt Prev Care 40-64y(22861) Diagnoses Low back pain M54.50 Constipation K59.00 Vitamin D deficiency E55.9 Hypercholesterolemia E78.00 IBS (irritable bowel syndrome) K58.9 Endometrial polyp N84.0 Annual physical exam Z00.00 Generalized anxiety disorder F41.1 Kidney arteriovenous malformation Q27.34 GERD (gastroesophageal reflux disease) K21.9 Anemia, unspecified type D64.9 Anemia type: unspecified type 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 (2) Constipation: Code(s): K59.00 - Constipation, unspecified Category: Medical Plan: Three rolls of constipation; increase water intake, increase fiber intake and exercise regularly. (3) Vitamin D deficiency: Code(s): E55.9 - Vitamin D deficiency, unspecified Category: Medical Plan: Continue to monitor blood work. Ordered for repeat vitamin-D levels (4) Hypercholesterolemia: Code(s): E78.00 - Pure hypercholesterolemia, unspecified Category: Medical Plan: Avoid foods that are high in cholesterol such as red meat, fried foods, eggs and baked goods. Triglyceride goal of less than 150 and LDL goal of less than 130. Ordered for repeat blood work. (5) IBS (irritable bowel syndrome): Code(s): K58.9 - Irritable bowel syndrome, unspecified Category: Medical Plan: Complaining of intermittent constipation that she uses senna for. No concerns at this time. (6) Endometrial polyp: Comment: On EMB pathology with mucinous metaplasia rule out endometrial hyperplasia or neoplasia Code(s): N84.0 - Polyp of corpus uteri Category: Medical Plan: Continue to follow with gynecology has a appointment later this year. (7) Annual physical exam: Code(s): Z00.00 - Encounter for general adult medical examination without abnormal findings Category: Medical Plan: Patient is up-to-date on all recommended routine screenings for her age. Her mammogram is scheduled for later this week and Pap smear scheduled for later this year. She is due for tetanus vaccine which was declined today. Blood work is up-to-date follow up in 1 year or sooner if needed (8) Generalized anxiety disorder: Comment: decline counselling 09/2021, 05/2022 Code(s): F41.1 - Generalized anxiety disorder Category: Medical Plan: Patient denies any symptoms of anxiety or depression at this time. (9) Kidney arteriovenous malformation: Comment: CT scan done March 2021 reveals multiple papillary filling defects in both kidneys Code(s): Q27.34 - Arteriovenous malformation of renal vessel Category: Medical Plan: Continue to monitor blood pressure and urinalysis. (10) GERD (gastroesophageal reflux disease): Code(s): K21.9 - Gastro-esophageal reflux disease without esophagitis Category: Medical Plan: Avoid trigger foods such as citrus, tomato products, soda, caffeine, spicy foods and other foods that may be irritating to your stomach. Avoid laying flat 3-4 hours after eating and elevate the head of the bed 30 degrees to prevent acid from moving into the esophagus. (11) Anemia: Code(s): D64.9 - Anemia, unspecified Category: Medical Qualifiers: Anemia type: unspecified type Qualified Code(s): D64.9 - Anemia, unspecified Plan: Continue to monitor CBC. Last blood work within normal limits. 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 Six-month follow-up colpo biopsy ECC were negative Code(s): D06.9 - Carcinoma in situ of cervix, unspecified Category: Medical Plan: Continue to follow up with gynecology has a appointment later this year for repeat Pap smear. (13) Screening for diabetes mellitus: Code(s): Z13.1 - Encounter for screening for diabetes mellitus Category: Medical Plan: Ordered for updated blood work. Plan Patient was informed and verbally consented to the use of an ambient scribe for clinic note documentation during this visit. This note was constructed using voice recognition software. While every effort has been made to ensure accuracy and gas burner operator, still areas may have been included sometimes these areas may affect the content or meeting of the given symptoms. Total time spent caring for the patient today was 30 minutes. This includes time spent before the visit reviewing the chart, time spent during the visit, and time spent after the visit and documentation. Orders: Orders Lipid Panel Today E78.00 - Pure hypercholesterolemia, unspecified Vitamin D 25-OH Total Today Z00.00 - Encounter for general adult medical examination without abnormal findings Vitamin B12 and Folate Today Z00.00 - Encounter for general adult medical examination without abnormal findings Hemoglobin A1c Today Z13.1 - Encounter for screening for diabetes mellitus TSH reflex Free T4 Today Z00.00 - Encounter for general adult medical examination without abnormal findings
== END 2024-06-24 11:48 | disposition home or self-care (01) ==
PROVIDERS: PCP Internal Medicine
DX: M54.50 Low back pain, unspecified (principal); K59.00 Constipation, unspecified; E55.9 Vitamin D deficiency, unspecified; E78.00 Pure hypercholesterolemia, unspecified; K58.9 Irritable bowel syndrome, unspecified; N84.0 Polyp of corpus uteri; Z00.00 Encounter for general adult medical examination without abnormal findings; F41.1 Generalized anxiety disorder; Q27.34 Arteriovenous malformation of renal vessel; K21.9 Gastro-esophageal reflux disease without esophagitis; D64.9 Anemia, unspecified; D06.9 Carcinoma in situ of cervix, unspecified; Z13.1 Encounter for screening for diabetes mellitus

== ENCOUNTER 2024-07-08 09:56 | Outpatient (REF) | payer OTHER, SELFPAY | END 2024-07-08 09:57 | disposition home or self-care (01) | LOC: HO.MAMMO 09:56 | PROVIDERS: PCP Internal Medicine; Visit Provider Internal Medicine | DX: Z12.31 Encounter for screening mammogram for malignant neoplasm of breast (principal) | CPT/HCPCS: 77063; 77067 ==

== ENCOUNTER → 2024-07-08 10:00 | Outpatient (BNV) | payer OTHER, SELFPAY | PROVIDERS: PCP Internal Medicine; Visit Provider Internal Medicine | DX: Z12.31 Encounter for screening mammogram for malignant neoplasm of breast (principal) | CPT/HCPCS: 77063; 77067 ==

== ENCOUNTER 2024-07-15 12:51 | Outpatient (AMB) | payer OTHER, SELFPAY ==
--- NOTE | 2024-07-15 12:56 | MHC.PC.OV ---
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 Accompanied by: Self / Same As Patient Allergies levofloxacin [From Levaquin] Adverse Reaction (Mild, Verified 07/15/24 13:05) dizziness metronidazole [From Flagyl] Adverse Reaction (Mild, Verified 07/15/24 13:05) dizziness Medication List - Last Reconciled 07/15/24 by ANDRA Sena sennosides-docusate sodium 8.6-50 mg (Senna-S) 2 tab-caps (2 x 8.6-50 mg) PO BEDTIME 30 days Tobacco use date assessed: 07/15/24 Dental Screening Dental Screen Date: 07/15/24 Did you have a dental visit in the last 12 months?: Yes Did you have a dental problem in the last 6 months where you did not have access to dental care?: No Was dental information given to patient?: Patient has dentist HPI rash on face/neck HPI Details Patient is a 44-year-old female presenting with complaints of rash on face/neck The patient is currently only taking senna tabs reports that this started a week and half ago on the left side of her face first-reports using couple different cosmetic products-like the water to clean the foundation off. reports that the area is itchy. Denies any systemic symptoms. Reports that she was using a store brand aveeno for eczema and moisturizer, Reports using aquaphor with some relief but not sure what helped because she mixed all the products together The area slightly raised, red patches. Reports that the itchiness is progressing She denies shortness of breath, itchiness in throat or throat closing, denies chest pain, heart palpitation [facility] Medical History Microscopic hematuria Upper respiratory infection Amenorrhea, secondary Lower urinary tract symptoms Bladder pain Diarrhea Proctalgia fugax IBS (irritable bowel syndrome) Hematuria Myoma Rectal pain Female pelvic pain [id number] syndrome Dyspnea Palpitations SOB (shortness of breath) Family planning advice Constipation Vaginal discharge Hx LEEP (loop electrosurgical excision procedure), cervix, COVID-19 virus infection Epigastric abdominal pain Anxiety and depression Vaginal bleeding History of abnormal cervical Pap smear Complex ovarian cyst Depression Surgical History History of D&C Family History Father Bladder cancer Mother Breast cancer Uterine cancer Diabetes HTN (hypertension) Maternal Grandmother Breast cancer Paternal Uncle Bone cancer Social History Housing: House Alcohol intake: current Alcohol intake frequency: holidays/special occasions only Alcohol type: beer, wine and hard liquor Comment: 1 a week 4 drinks Patient Tobacco Use Status: Never used Tobacco Tobacco use type: Cigarette e-Cigarette/Vaping Use: Never Used Second Hand Smoke Exposure: No service: No Current occupational status: employed Sexual orientation: Straight/Heterosexual Gender identity: Female Cognitive needs: No Hearing needs: No Vision needs: Yes Female Reproductive History Menstrual Age of Menarche: 16 Questionnaire PHQ-9 Over the last 2 weeks, how often have you been bothered by any of the following problems? 1. Little interest or pleasure in doing things: not at all 2. Feeling down, depressed, or hopeless: not at all 3. Trouble falling or staying asleep, or sleeping too much: not at all 4. Feeling tired or having little energy: not at all 5. Poor appetite or overeating: not at all 6. Feeling bad about yourself - or that you are a failure or have let yourself or your family down: not at all 7. Trouble concentrating on things, such as reading the newspaper or watching television: not at all 8. Moving or speaking so slowly that other people could have noticed. Or the opposite - being so fidgety or restless that you have been moving around a lot more than usual: not at all 9. Thoughts that you would be better off or of hurting yourself in some way: not at all Total score: 0 Depression Screening Interpretation: Negative Depression Screening Done: Yes Source: Developed by Drs. Thom Angeles, Ingrid Marquez, Julio Cruz and colleagues, with an educational tawny from [employer]. Thrive Questionnaire Date Thrive assessed: 07/15/24 I am a: Patient What is your living situation today?: I have a steady place to live Within the past 12 months, did the food you bought not last and you didn't have the money to get more?: Never true Within the past 12 months, did you worry whether your food would run out before you got money to buy more?: Never true Do you have trouble paying for medicines?: No Do you have trouble getting transportation to medical appointments?: No Do you have trouble paying your heating and electricity bill?: No Do you have trouble taking care of your child, family member or friend?: No Do you have trouble with day-to-day activities such as bathing, preparing meals, shopping, managing finances, etc.?: No Are you currently unemployed and looking for a job?: No Are you interested in more education?: No Please select the resources that you would like help with: None Currently or been in a relationship where the following occur: No concerns reported THRIVE Score: 0 AUDIT C Alcohol Use Questionnaire (AUDIT-C) 1. How often do you have a drink containing alcohol?: Monthly or less 2. How many drinks containing alcohol do you have on a typical day when you are drinking?: 1 or 2 3. How often do you have six or more drinks on one occasion?: Never Total Score: 1 ANGEL LUIS-7 AMB Questionnaire ANGEL LUIS-7 Date ANGEL LUIS - 7 assessed: 07/15/24 Feeling nervous, anxious, or on edge: 0 = Not at all Not being able to stop or control worryin = Not at all Worrying too much about different things: 0 = Not at all Trouble relaxin = Not at all Being so restless that it is hard to sit still: 0 = Not at all Becoming easily annoyed or irritable: 0 = Not at all Feeling afraid as if something awful might happen: 0 = Not at all Total ANGEL LUIS-7 score (0-4 normal; 5-9 mild; 10-14 moderate; 15-21 severe): 0 Source: Developed by Drs. Thom Angeles, Ingrid Marquez, Julio Cruz and colleagues, with an educational tawny from [employer]. Review of Systems ENT Denies hoarseness, Denies lip swelling, Denies sore throat, Denies throat swelling and Denies tongue swelling Card Denies chest pain, Denies leg edema and Denies lightheadedness Resp Denies cough, Denies hemoptysis and Denies wheezing GI Denies abdominal pain, Denies melena, Denies constipation, Denies diarrhea and Denies vomiting Skin/Breast Reports rash (on bilateral face) Aller/Immun Denies lip swelling, Denies throat swelling, Denies tongue swelling and Denies wheezing Physical exam (Primary Care) Vital Signs: Last Vital Signs Pulse 72 07/15/24 12:57 BP 106/78 07/15/24 12:57 Pulse Ox 98 07/15/24 12:57 Oxygen Delivery Method Room Air 07/15/24 12:57 BMI result Body Mass Index 28.6 Tobacco/Smoking Status: Tobacco use Status Tobacco use date assessed 07/15/24 07/15/24 13:04 Patient Tobacco Use Status Never used Tobacco 07/15/24 13:04 Tobacco use type Cigarette 07/15/24 13:04 e-Cigarette/Vaping Use Never Used 07/15/24 13:04 PHQ-9: PHQ-9 Score PHQ-9: Total score 0 07/22/24 23:11 Depression Screening Interpretation: Negative Thrive Assessment: Date of Thrive Assessment Date Thrive assessed 07/15/24 07/15/24 13:04 Currently or been in a relationship where the following occur: No concerns reported Const General: healthy appearing, no acute distress, alert and awake Nutritional Appearance: well nourished Orientation/consciousness: oriented to person, oriented to place and oriented to time [facility] Head: Yes normal to inspection Ears: external ears normal General nose exam: Normal external nose present Face and sinus: Yes erythema (bilateral cheeks) Mouth: Normal oral and palatal mucosa present, lip normal, tongue normal and oropharynx normal Throat: Yes posterior oropharynx normal Eyes Conjunctivae: conjunctivae normal Sclerae: sclerae normal Pupils: Equal, round and reactive pupils present Neck Neck: Yes no lymphadenopathy and Yes no JVD Thyroid: Thyroid normal Carotids: no bruits Resp Effort & Inspection: normal respiratory effort and not tachypneic Auscultation: no crackles, no rales, no rhonchi and no wheezes Cardio Rate: regular rate Rhythm: regular rhythm Heart sounds: no murmurs and normal S1 and S2 GI Palpation (GI): Soft to palpation, nontender, no hepatomegaly and no splenomegaly Auscultation: normal bowel sounds Skin General skin exam: dry skin and erythema Rashes: rashes noted maculopapular rash bilateral face Neuro General: oriented to person, oriented to place and oriented to time Cranial nerves: Yes Equal, round and reactive pupils present Coding Level of Care Code Est Pt Level 3 (21538) Diagnoses Allergic dermatitis L23.9 Time Spent (min) 31 Assessment & Plan Assessment & Plan (1) Allergic dermatitis: Code(s): L23.9 - Allergic contact dermatitis, unspecified cause Category: Medical Plan: Prednisone tapered ordered. Hydroxyzine 25 mg b.i.d. p.r.n. ordered. Instruct patient to only use soap and water on her face at this time. Patient to contact office if symptoms are not resolving or worsen Medications: New prednisone see taper instructions take 4 tabs x2 days, then 3 tabs x 2 days, then 2 tabs x2 days, 1 tab x 2 days =20 tabs over 8 days 10 mg PO DIRECTED 20 tabs 0RF L23.9 - Allergic contact dermatitis, unspecified cause hydroxyzine HCl 25 mg PO BID PRN 60 tabs 1RF itching
[2024-07-15 12:57] VITALS: BP 106/78; PULSE 72; O2SAT 98; BMI 28.6
== END 2024-07-15 13:44 | disposition home or self-care (01) ==
LOC: HO.HMCH 12:52
PROVIDERS: PCP Internal Medicine
DX: L23.9 Allergic contact dermatitis, unspecified cause (principal)

== ENCOUNTER → 2024-07-15 12:51 | Outpatient (BNVA) | payer OTHER, SELFPAY | PROVIDERS: PCP Internal Medicine | DX: L23.9 Allergic contact dermatitis, unspecified cause (principal) | CPT/HCPCS: 99212 ==

== ENCOUNTER 2024-07-22 09:06 | Outpatient (REF) | payer OTHER, SELFPAY ==
[2024-07-22 10:13] LABS: Estimated Average Glucose 94 mg/dL; Hemoglobin A1c % 4.9 % (<6.0); Total Hemoglobin (HGBA1C) 3788.7087 umol/L
[2024-07-22 11:03] LABS: Cholesterol 197 mg/dL (<200); HDL Cholesterol 54 mg/dL (>40); LDL Cholesterol Calculated 130 mg/dL (<100); TSH reflex Free T4 0.77 uIU/mL (0.32-4.0); Triglycerides 66 mg/dL (<150)
[2024-07-22 11:11] LABS: Folate 9.8 ng/mL (> or = 4.0); Vitamin B12 345 pg/mL (200-900)
== END 2024-07-22 09:07 | disposition home or self-care (01) ==
LOC: HO.LAB 09:06
PROVIDERS: PCP Internal Medicine
DX: Z00.00 Encounter for general adult medical examination without abnormal findings (principal); Z13.1 Encounter for screening for diabetes mellitus; E78.00 Pure hypercholesterolemia, unspecified
CPT/HCPCS: 36415; 80061; 82306; 82607; 82746; 83036; 84443

== ENCOUNTER 2024-09-06 10:23 | Outpatient (REF) | payer OTHER, SELFPAY ==
[2024-09-06 12:24] LABS: Syphilis Screen Nonreactive (Nonreactive)
[2024-09-06 12:36] LABS: HBsAGNum1 0.42 S/CO (0.00-0.99); HIV AB/AG Nonreactive (Nonreactive); HIV Num 1 0.05 S/CO (0.00-0.99); Hepatitis B Surface Antigen Negative (Negative); ~HepC Num1 0.06 S/CO (0.00-0.79); ~Hepatitis C Antibody Nonreactive (Nonreactive)
[2024-09-06 13:19] LABS: CT PCR NOT DETECTED (Not Detect.); NG PCR NOT DETECTED (Not Detect.)
== END 2024-09-06 10:24 | disposition home or self-care (01) ==
LOC: HO.LAB 10:23
PROVIDERS: PCP Internal Medicine; Visit Provider Obstetrics & Gynecology
DX: Z20.2 Contact with and (suspected) exposure to infections with a predominantly sexual mode of transmission (principal); A64 Unspecified sexually transmitted disease
CPT/HCPCS: 86780; 86803; 87340; 87389; 87491; 87591

== ENCOUNTER 2024-12-13 09:40 | Outpatient (REF) | payer OTHER, SELFPAY ==
[2024-12-13 10:46] LABS: MANUAL DIFF FLAG NO
[2024-12-13 11:33] LABS: Hematocrit 39.8 % (37.0-47.0); Hemoglobin 13.7 g/dl (12.0-16.0); Imm Gran Abs Auto 0.01 X10*3/uL (0.00-0.03); Imm Gran Pct Auto 0.2 % (0.0-0.4); Lymphocytes Absolute Auto 1.6 X10*3/uL (1.2-4.9); Mean Corpuscular HGB Conc 34.4 g/dl (31.0-35.0); Mean Corpuscular Hemoglobin 30.0 pg (27.0-33.0); Mean Corpuscular Volume 87.3 fL (80.0-98.0); NRBC Abs Auto 0.000 X10*3/uL (0.0-0.012); NRBC Pct Auto 0.0 /100WBC (0.0-0.2); Platelet Count 281 X10*3/uL (160-400); Red Blood Count 4.56 X10*6/uL (4.20-5.50); White Blood Count 6.1 X10*3/uL (4.8-10.8)
[2024-12-13 11:43] LABS: Appearance Urine Clear; Glucose Urine UA Negative (Negative); PH 7.0 (5.0-9.0); Specific Gravity - Urine 1.015 (1.005-1.025); UMIC TRIGGER UACC YES
[2024-12-13 12:01] LABS: Hemoglobin A1C 104.3236 umol/L; Total Hemoglobin (HGBA1C) 3475.9253 umol/L
[2024-12-13 12:12] LABS: Alanine Aminotransferase 18 U/L (0-31); Albumin Level 4.7 g/dL (3.5-5.0); Alkaline Phosphatase 53 U/L (39-117); Anion Gap 11 (12-20); Aspartate Amino Transferase 25 U/L (5-31); Blood Urea Nitrogen 17 mg/dL (9-16); Calcium 10.1 mg/dL (8.4-10.2); Carbon Dioxide 26 mmol/L (22-29); Chloride 105 mmol/L (96-108); Cholesterol 189 mg/dL (<200); Estimated Glomerular Filt Rate > 60; HDL Cholesterol 39 mg/dL (>40); Potassium 4.3 mmol/L (3.3-5.1); Sodium 138 mmol/L (135-145); Total Protein 7.5 g/dL (6.5-8.0); Triglycerides 73 mg/dL (<150)
[2024-12-13 12:15] LABS: Free T4 (Free Thyroxine) 1.03 ng/dL (0.71-1.85); Thyroid Stimulating Hormone 1.01 uIU/mL (0.32-4.0)
[2024-12-13 12:27] LABS: Vitamin B12 305 pg/mL (200-900)
[2024-12-13 13:58] LABS: Folate 11.7 ng/mL (> or = 4.0)
== END 2024-12-13 09:41 | disposition home or self-care (01) ==
LOC: HO.LAB 09:40
PROVIDERS: PCP Internal Medicine; Visit Provider Internal Medicine
DX: K21.9 Gastro-esophageal reflux disease without esophagitis (principal); R73.02 Impaired glucose tolerance (oral); E66.3 Overweight; Z68.27 Body mass index [BMI] 27.0-27.9, adult; E78.00 Pure hypercholesterolemia, unspecified; E55.9 Vitamin D deficiency, unspecified; Z71.3 Dietary counseling and surveillance; R42 Dizziness and giddiness; R20.2 Paresthesia of skin
CPT/HCPCS: 36415; 80053; 80061; 81001; 82306; 82607; 82746; 83036; 84439; 84443; 85025; 99212

== ENCOUNTER 2024-12-13 09:40 | Outpatient (AMB) | payer OTHER, SELFPAY ==
[2024-12-13 09:48] VITALS: BP 112/72; PULSE 78; TEMP 36.3; O2SAT 99; BMI 27.0
--- NOTE | 2024-12-13 09:48 | MHC.PC.OV ---
Vital Signs 12/13/24 09:48 Height 5 ft 3 in Weight 152 lb 6 oz BMI 27.0 BP 112/72 Blood Pressure Location Lt brachial Position Sitting Pulse 78 Pulse Source Pulse Oximeter Temp 97.3 F Temp Source Temporal Artery Scan Pulse Oximetry (%) 99 Oxygen Delivery Method Room Air Intake Visit Reasons: Dizziness and Tingling of left leg Allergies levofloxacin (From Levaquin) Adverse Reaction (Mild, Verified 12/13/24 09:51) dizziness metronidazole (From Flagyl) Adverse Reaction (Mild, Verified 12/13/24 09:51) dizziness Medication List - Last Reconciled 12/13/24 by Ben Mckeon MD cholecalciferol (vitamin D3) 25 mcg PO DAILY fexofenadine-pseudoephedrine 180-240 mg ER (Emperatriz-D 24 Hour) 1 tab PO QPM sennosides-docusate sodium 8.6-50 mg (Senna-S) 2 tab-caps (2 x 8.6-50 mg) PO BEDTIME 30 days Tobacco use date assessed: 12/13/24 Dental Screening Dental Screen Date: 12/13/24 Did you have a dental visit in the last 12 months?: No Did you have a dental problem in the last 6 months where you did not have access to dental care?: No Was dental information given to patient?: Patient declined [facility] Medical History (Updated 12/13/24 @ 10:08 by Ben Mckeon MD) Screening for diabetes mellitus Microscopic hematuria Upper respiratory infection Amenorrhea, secondary Lower urinary tract symptoms Bladder pain Diarrhea Proctalgia fugax IBS (irritable bowel syndrome) Hematuria Myoma Rectal pain Female pelvic pain 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 Dyspnea Palpitations SOB (shortness of breath) Family planning advice Constipation Vaginal discharge Hx LEEP (loop electrosurgical excision procedure), cervix, COVID-19 virus infection Epigastric abdominal pain Anxiety and depression Vaginal bleeding History of abnormal cervical Pap smear Complex ovarian cyst Depression Surgical History History of D&C Family History Father Bladder cancer Mother Breast cancer Uterine cancer Diabetes HTN (hypertension) Maternal Grandmother Breast cancer Paternal Uncle Bone cancer Social History (Reviewed 12/13/24 @ 09:51 by JEFF Collado Housing: House Alcohol intake: current Alcohol intake frequency: holidays/special occasions only Alcohol type: beer, wine and hard liquor Comment: 1 a week 4 drinks Patient Tobacco Use Status: Never used Tobacco Tobacco use type: Cigarette e-Cigarette/Vaping Use: Never Used Second Hand Smoke Exposure: No service: No Current occupational status: employed Sexual orientation: Straight/Heterosexual Gender identity: Female Cognitive needs: No Hearing needs: No Vision needs: Yes Female Reproductive History Menstrual Age of Menarche: 16 Questionnaire PHQ-9 Over the last 2 weeks, how often have you been bothered by any of the following problems? 1. Little interest or pleasure in doing things: several days 2. Feeling down, depressed, or hopeless: several days 3. Trouble falling or staying asleep, or sleeping too much: not at all 4. Feeling tired or having little energy: several days 5. Poor appetite or overeating: not at all 6. Feeling bad about yourself - or that you are a failure or have let yourself or your family down: not at all 7. Trouble concentrating on things, such as reading the newspaper or watching television: several days 8. Moving or speaking so slowly that other people could have noticed. Or the opposite - being so fidgety or restless that you have been moving around a lot more than usual: not at all 9. Thoughts that you would be better off or of hurting yourself in some way: not at all Total score: 4 Source: Developed by Drs. Thom Angeles, Ingrid Marquez, Julio Cruz and colleagues, with an educational tawny from [employer]. Thrive Questionnaire Date Thrive assessed: 06/24/24 I am a: Patient What is your living situation today?: I choose not to answer this question Within the past 12 months, did the food you bought not last and you didn't have the money to get more?: I choose not to answer this question Within the past 12 months, did you worry whether your food would run out before you got money to buy more?: I choose not to answer this question Do you have trouble paying for medicines?: I choose not to answer this question Do you have trouble getting transportation to medical appointments?: I choose not to answer this question Do you have trouble paying your heating and electricity bill?: I choose not to answer this question Do you have trouble taking care of your child, family member or friend?: I choose not to answer this question Do you have trouble with day-to-day activities such as bathing, preparing meals, shopping, managing finances, etc.?: I choose not to answer this question Are you currently unemployed and looking for a job?: I choose not to answer this question Are you interested in more education?: I choose not to answer this question Please select the resources that you would like help with: None Currently or been in a relationship where the following occur: I choose not to answer THRIVE Score: 0 AUDIT C Alcohol Use Questionnaire (AUDIT-C) 1. How often do you have a drink containing alcohol?: Monthly or less 2. How many drinks containing alcohol do you have on a typical day when you are drinking?: 1 or 2 3. How often do you have six or more drinks on one occasion?: Never Total Score: 1 ANGEL LUIS-7 AMB Questionnaire ANGEL LUIS-7 Date ANGEL LUIS - 7 assessed: 07/15/24 Feeling nervous, anxious, or on edge: 0 = Not at all Not being able to stop or control worryin = Not at all Worrying too much about different things: 0 = Not at all Trouble relaxin = Not at all Being so restless that it is hard to sit still: 0 = Not at all Becoming easily annoyed or irritable: 0 = Not at all Feeling afraid as if something awful might happen: 0 = Not at all Total ANGEL LUIS-7 score (0-4 normal; 5-9 mild; 10-14 moderate; 15-21 severe): 0 Source: Developed by Drs. Thom Angeles, Ingrid Marquez, Julio Cruz and colleagues, with an educational tawny from [employer]. Physical exam (Primary Care) Vital Signs: Last Vital Signs Temp 97.3 F 12/13/24 09:48 Pulse 78 12/13/24 09:48 BP 112/72 12/13/24 09:48 Pulse Ox 99 12/13/24 09:48 Oxygen Delivery Method Room Air 12/13/24 09:48 BMI result Body Mass Index 27.0 Tobacco/Smoking Status: Tobacco use Status Tobacco use date assessed 08/22/25 08/22/25 09:52 Patient Tobacco Use Status Never used Tobacco 12/13/24 09:52 Tobacco use type Cigarette 12/13/24 09:52 e-Cigarette/Vaping Use Never Used 12/13/24 09:52 PHQ-9: PHQ-9 Score PHQ-9: Total score 4 12/13/24 10:09 Thrive Assessment: Date of Thrive Assessment Date Thrive assessed 06/24/24 12/13/24 09:52 Currently or been in a relationship where the following occur: I choose not to answer Const General: alert; No acute distress Eyes Conjunctivae: conjunctivae normal Resp Auscultation: clear to auscultation bilaterally Cardio Rate: regular rate Rhythm: regular rhythm GI Inspection: Yes normal to inspection Extrem General: Yes normal to inspection and No edema Coding Level of Care Code Est Pt Level 4 (91289) Diagnoses GERD (gastroesophageal reflux disease) K21.9 Overweight (BMI 25.0-29.9) E66.3 Impaired glucose tolerance R73.02 Hypercholesterolemia E78.00 Vitamin D deficiency E55.9 Assessment & Plan Assessment & Plan (1) GERD (gastroesophageal reflux disease): Code(s): K21.9 - Gastro-esophageal reflux disease without esophagitis Category: Medical Plan: Avoid the foods that causes that usually spicy foods, tomato products, juices, coffee, soda and foods that your sensitive to. After eating do not lie down, allow 3-4 hours before in lie down. And keep the head of bed above 30 degrees to avoid the acid from going up. (2) Overweight (BMI 25.0-29.9): Code(s): E66.3 - Overweight Category: Medical Plan: Diet and exercise (3) Impaired glucose tolerance: Code(s): R73.02 - Impaired glucose tolerance (oral) Category: Medical Plan: Decrease the amount of carbohydrate intake, pasta, bread, rice and potatoes are all sugar and that is aside from all the sweet stuff, remember that fruits are good but they are Sweet also. (4) Hypercholesterolemia: Code(s): E78.00 - Pure hypercholesterolemia, unspecified Category: Medical Plan: Avoid fried foods, chicken skin, eggs, butter margarine, pastries and meat. Be it pork or beef they have a lot of cholesterol LDL goal of less than 130 and triglyceride of less than 150 (5) Vitamin D deficiency: Code(s): E55.9 - Vitamin D deficiency, unspecified Category: Medical Plan: Continue with vitamin-D 1166-8261 units once a day Plan History of Present Illness The patient is a 44-year-old female presenting for a follow-up visit after being last seen in June 2024. She has a history of Cervical Intraepithelial Neoplasia Grade 3 (CIN3) and ongoing issues with anemia and Gastroesophageal Reflux Disease (GERD). The patient also reports a history of Generalized Anxiety Disorder and hypercholesterolemia. Recently, she experienced a facial rash for which she was prescribed steroids. Her blood work from April 2024 indicated normal blood count and platelet count, with good renal function and electrolytes. There was an elevated blood sugar level, but the hemoglobin A1c was normal, and liver function was good. Cholesterol levels showed an elevated LDL of 130 mg/dL, and there was a noted deficiency in vitamin D. Health Maintenance - Mammogram is up to date - Continue vitamin D supplementation of 1000 to 2000 units daily Social History - The patient travels at least once a year, indicating a level of physical activity and engagement in social activities. Review of Systems - Dermatological: Reports facial rash. - Cardiovascular: Reports chest pressure and palpitations. Denies chest pain. - Gastrointestinal: Denies nausea, vomiting, diarrhea, or constipation. Reports pressure in chest possibly related to reflux. - Neurological: Reports dizziness. Physical Exam Results - Labs: Normal blood count and platelet count, good renal function and electrolytes, elevated blood sugar with normal hemoglobin A1c, elevated LDL cholesterol at 130 mg/dL, low vitamin D. Plan The patient will have fasting blood work to assess her dizziness and monitor cholesterol and blood sugar levels. A chest x-ray is planned to investigate the cause of her chest pressure and palpitations. She should continue vitamin D supplementation and maintain her current medications, including Emperatriz D and Xanax as needed for anxiety, particularly during travel. Patient was informed and verbally consented to the use of an ambient scribe for clinic note documentation during this visit. Discussion Notes I discussed with the patient the need for fasting blood work to evaluate her dizziness and to monitor her cholesterol and blood sugar levels. We also talked about obtaining a chest x-ray to rule out any potential issues causing her chest pressure and palpitations. I advised her to continue her vitamin D supplementation and maintain her current medications, including Emperatriz D and Xanax as needed for anxiety, especially during travel. We will review the results of the tests and discuss further management as needed. Patient Instructions - Get fasting blood work done as soon as possible. - Undergo a chest x-ray as requested. - Continue taking vitamin D supplements daily. - Maintain current medications, including Emperatriz D and Xanax as needed. - Follow up with the doctor to discuss test results and further management. Orders: Orders Complete Blood Count Auto Diff Today R73.02 - Impaired glucose tolerance (oral) Hemoglobin A1c Today R73.02 - Impaired glucose tolerance (oral) Vitamin D 25-OH Total Today R73.02 - Impaired glucose tolerance (oral) UA CC w/rflx Micro + Cult Today R30.0 - Dysuria, R73.02 - Impaired glucose tolerance (oral) Comprehensive Met. Panel Today R73.02 - Impaired glucose tolerance (oral) Free T4 (Free Thyroxine) Today R73.02 - Impaired glucose tolerance (oral) Thyroid Stimulating Hormone Today R73.02 - Impaired glucose tolerance (oral) Lipid Panel Today E78.00 - Pure hypercholesterolemia, unspecified, R73.02 - Impaired glucose tolerance (oral) Vitamin B12 and Folate Today R73.02 - Impaired glucose tolerance (oral) XR chest 2V Today E78.00 - Pure hypercholesterolemia, unspecified Medications: Refilled alprazolam 0.25 mg PO DAILY PRN 10 tabs 0RF anxiety 30 days
== END 2024-12-13 10:21 | disposition home or self-care (01) ==
LOC: HO.HMCH 09:40
PROVIDERS: PCP Internal Medicine; Visit Provider Internal Medicine
DX: K21.9 Gastro-esophageal reflux disease without esophagitis (principal); E66.3 Overweight; R73.02 Impaired glucose tolerance (oral); E78.00 Pure hypercholesterolemia, unspecified; E55.9 Vitamin D deficiency, unspecified

== ENCOUNTER 2024-12-30 12:55 | Outpatient (REF) | payer OTHER, SELFPAY ==
--- NOTE | ~2024-12-30 | US_ITS ---
EXAMINATION: US PELVIS TRANSABDOMINAL AND TRANSVAGINAL HISTORY: D25.9 - Leiomyoma of uterus, unspecified COMPARISON: Comparison is made with the prior examination dated 04/22/2024. TECHNIQUE: Transabdominal and endovaginal real-time 2D clinton-scale ultrasound was performed. FINDINGS: Uterus: The uterus is normal in size, measuring 6.5 x 4.8 x 5.1 cm. Myometrium has a normal echotexture. Again seen is an anterior fibroid measuring 9 x 10 x 14 mm (previously 10 x 8 x 9 mm). There are myometrial cyst measuring up to 7 mm in size. Endometrium: The endometrial stripe measures 6 mm in thickness. There are nabothian cysts in the cervix. Right ovary: The right ovary measures 2.9 x 1.9 x 2.0 cm. The right ovary is normal in size and echotexture. Left ovary: The left ovary measures 3.1 x 1.9 x 1.9 cm. The left ovary is normal in size and echotexture. Pelvic fluid: none. US/US pelvic and transvaginal IMPRESSION: 9 x 10 x 14 mm anterior fibroid, slightly larger in size than on the prior study. Electronically signed by: Thom Jones MD 12/30/2024 01:33 PM EDT
== END 2024-12-30 12:56 | disposition home or self-care (01) ==
LOC: HO.HMGCX 12:55
PROVIDERS: PCP Internal Medicine; Visit Provider Obstetrics & Gynecology
DX: D25.9 Leiomyoma of uterus, unspecified (principal)
CPT/HCPCS: 76830; 76856

== ENCOUNTER → 2024-12-30 12:58 | Outpatient (BNV) | payer OTHER, SELFPAY | PROVIDERS: PCP Internal Medicine; Visit Provider Radiology Diagnostic Radiology | DX: D25.9 Leiomyoma of uterus, unspecified (principal) | CPT/HCPCS: 76830; 76856 ==

== ENCOUNTER 2025-04-07 10:00 | Outpatient (AMB) | payer OTHER, SELFPAY ==
--- NOTE | 2025-04-07 10:02 | A.OFFVIS_ITS ---
Intake Visit Reasons: US Results Allergies levofloxacin (From Levaquin) Adverse Reaction (Mild, Verified 12/13/24 09:51) dizziness metronidazole (From Flagyl) Adverse Reaction (Mild, Verified 12/13/24 09:51) dizziness HPI Comments Details: The patient is schedule telehealth visit for follow-up regarding ultrasound for left ovarian calcification seen on previous ultrasound in 04/16 Ultrasound done recently showed the following: Uterus: The uterus is normal in size, measuring 6.5 x 4.8 x 5.1 cm. Myometrium has a normal echotexture. Again seen is an anterior fibroid measuring 9 x 10 x 14 mm (previously 10 x 8 x 9 mm). There are myometrial cyst measuring up to 7 mm in size. Endometrium: The endometrial stripe measures 6 mm in thickness. There are nabothian cysts in the cervix. Right ovary: The right ovary measures 2.9 x 1.9 x 2.0 cm. The right ovary is normal in size and echotexture. Left ovary: The left ovary measures 3.1 x 1.9 x 1.9 cm. The left ovary is normal in size and echotexture. Pelvic fluid: none. [facility] Medical History (Updated 12/13/24 @ 10:08 by Ben Mckeon MD) Screening for diabetes mellitus Microscopic hematuria Upper respiratory infection Amenorrhea, secondary Lower urinary tract symptoms Bladder pain Diarrhea Proctalgia fugax IBS (irritable bowel syndrome) Hematuria Myoma Rectal pain Female pelvic pain [id number] syndrome Dyspnea Palpitations SOB (shortness of breath) Family planning advice Constipation Vaginal discharge Hx LEEP (loop electrosurgical excision procedure), cervix, COVID-19 virus infection Epigastric abdominal pain Anxiety and depression Vaginal bleeding History of abnormal cervical Pap smear Complex ovarian cyst Depression Surgical History History of D&C Family History Father Bladder cancer Mother Breast cancer Uterine cancer Diabetes HTN (hypertension) Maternal Grandmother Breast cancer Paternal Uncle Bone cancer Social History Housing: House Alcohol intake: current Alcohol intake frequency: holidays/special occasions only Alcohol type: beer, wine and hard liquor Comment: 1 a week 4 drinks Patient Tobacco Use Status: Never used Tobacco Tobacco use type: Cigarette e-Cigarette/Vaping Use: Never Used Second Hand Smoke Exposure: No service: No Current occupational status: employed Sexual orientation: Straight/Heterosexual Gender identity: Female Cognitive needs: No Hearing needs: No Vision needs: Yes Female Reproductive History Menstrual Age of Menarche: 16 Review of Systems Const All systems reviewed & are unremarkable except as noted in HPI and below Reports as per HPI and Reports no additional complaints GI Reports no additional complaints Reports no additional complaints Telehealth Telehealth Telehealth Platform: [facility] Location of provider rendering services: practice address Location of patient: address on file Patient Identification confirmed using: Name, : Yes Telehealth method: video Patient verbally consented to treatment: Yes Patient verbally consented to billing insurance company: Yes Patient informed of any privacy concerns related to visit: Yes Minutes spent on Phone/Video with Pt.: 4 Assessment & Plan Assessment & Plan (1) Uterine myoma: Code(s): D25.9 - Leiomyoma of uterus, unspecified Category: Medical Plan: Discussed with the patient the findings on pelvic ultrasound & the risk of myosarcoma; in addition reviewed with the patient that malignancy and pre malignancy cannot be ruled out without hysterectomy for pathological evaluation ; furthermore, explained to the patient the limitation of pelvic ultrasound and endometrial biopsy in the setting. Discussed with the patient the options of treatment including expectant management versus hysterectomy; the pros and cons, risks benefits of each approach were discussed with the patient including the fact that in cases of m yosarcoma, surgical treatment can lead to early diagnosis and positively affects the prognosis; after further discussion, the patient decided to proceed with expectant management. Will repeat pelvic ultrasound periodically. Instructions given to patient to call in case any of the following occurs: pressure symptoms, abnormal uterine bleeding, pelvic pain; and to schedule a 12-months pelvic ultra sound (order placed) and a follow-up appointment . All questions answered, the patient verbalized understanding and agreed with the plan . I spent a total of 20 minutes reviewing the chart, talking to the patient via video and documenting in the medical record. Orders: Orders US pelvic and transvaginal 1 Year D25.9 - Leiomyoma of uterus, unspecified Coding Level of Care Code Tele Est Pt Level 3 (53396) Diagnoses Uterine myoma D25.9
== END 2025-04-07 11:11 | disposition home or self-care (01) ==
LOC: HO.HWS 10:00
PROVIDERS: PCP Internal Medicine; Visit Provider Obstetrics & Gynecology
DX: D25.9 Leiomyoma of uterus, unspecified (principal)
CPT/HCPCS: 99213